=== PATIENT | female | born 1960 | race Caucasian/White ===

== ENCOUNTER 2017-02-19 22:47 | Inpatient (IN) | payer OTHER ==
[~2017-02-19] VITALS: Ht 167.6 cm; Wt 62.4 kg
[2017-02-20 01:50] VITALS: BP 142/71; PULSE 79; TEMP 36.9; O2SAT 98; Ht 167.6 cm; Wt 62.4 kg
--- NOTE | 2017-02-20 03:16 | History and Physical ---
History & Physical Date & Time of Service: Feb 20, 2017 at 03:02 Chief Complaint: Bilat 2,3,4 Toe Cellulitis, Gangrene, ?Osteomyelit Primary Care Physician: No Doctor, Assigned History of Present Illness Source: patient Patient transferred from [facility] with bilateral gangrenous toes. She states she went out in the cold last week and when she came in, she noticed some blisters. The blisters were initially painful, but less so after they burst. She subsequently noticed discoloration of the skin, and attempted to treat with hydrogen peroxide. She states that the nail of her right second toe became black and fell off. When the discoloration did not improve after 3 days, she decided to seek medical attention. She otherwise denies feet problem since her bilateral great toe amputation in 2013 due to osteomyelitis - exact cause difficult to ascertain given poor historian. She otherwise denies diabetes, neuropathy, claudication, heart racing/palpitations. She is a smoker of less than half a pack daily. She states she has heating in her home and that her boots are warm and her feet did not feel cold while outdoors. Past Medical/Surgical History Patient denies any chronic medical conditions. Past medical history: - Osteomyelitis Previous surgeries: - cholecystomy - bilateral toe amputations - tonsillectomy Family History Non contributory. Social History Lives in a trailer with a friend. Smoking Status: Current Every Day Smoker Smokeless Tobacco Use: No Alcohol Use: socially Drug Use: none Marital Status: single Housing status: lives with friends Immunizations History of Influenza Vaccine: No History of Tetanus Vaccine?: No History of Pneumococcal: No History of Hepatitis B Vaccine: No Multi-Drug Resistant Organisms History of MDRO: No Allergies Coded Allergies: No Known Allergies (Unverified , 02/20/17) Review of Systems Constitutional: No fever, No chills Eyes: No worsening of vision, No eye pain ENT: No hearing loss Respiratory: No cough, No wheezing, No shortness of breath Cardiovascular: No chest pain, No orthopnea, No edema, No claudication, No palpitations Abdomen: No pain, No nausea, No vomiting, No diarrhea, No constipation Musculoskeletal: No joint pain, No muscle pain, No swelling, No calf pain Genitourinary - Female: No dysuria, No urinary frequency, No urinary urgency, No hematuria Neurologic: + balance problems, No paralysis, No weakness, No numbness/tingling Integumentary: + new/changing skin lesions, + color change, No rash, No itch, No bleeding Allergic / Immunologic: No environmental allergies, No seasonal allergies, No pet sensitivities, No food allergies, No hives Physical Exam Vital Signs Date Time Temp Pulse Resp B/P (MAP) Pulse Ox O2 Delivery O2 Flow Rate FiO2 02/20/17 01:50 36.9 79 16 142/71 (94) 98 Room Air General Appearance: WD/WN, no apparent distress Head: normocephalic, atraumatic Eyes: normal inspection ENT: hearing grossly normal, pharynx normal, + pertinent finding (poor dentition) Neck: supple, no adenopathy Respiratory/Chest: lungs clear, normal breath sounds, no respiratory distress, no accessory muscle use Cardiovascular: regular rate, rhythm, no edema, no murmur, normal peripheral pulses (posterior tib and dorsalis pedis 2+) Abdomen/GI: normal bowel sounds, non tender, soft Extremities/Musculoskelatal: no calf tenderness, normal capillary refill, no pedal edema, + pertinent finding (absence of great toes bilaterally. right second digit has no toe nail.) Neurologic/Psych: no motor/sensory deficits, alert, normal mood/affect, oriented x 3 Skin: + pertinent finding (Toes discolored sepulveda and red. Toes mildly musky/ foul smelling) Lymphatic: no adenopathy Diagnostics Laboratory Results Labs from outside hospital reviewed. CBC, BMP, coags, trop all WNL. Diagnostic Radiology No imaging performed at outside lab. Impression Assessment and Plan 56 year old female with no other chronic medical issues transferred from [facility] with bilateral gangrenous toes. Bilateral gangrenous toes - Bilateral foot zrays to assess for osteomyelitis - U/S lower extremities bilaterally to assess vasculature - IV abx: vancomycin and zosyn to cover staph and pseudomonas - Foot care: Kerlix dressing and waffle boots - Consult orthopedics - Check HbA1c and vitamin B12 to assess for causes of neuropathy VTE ppx - Heparin q8h Dispo - Discharge planning ordered given patient seems to come from poor socioeconomic background FULL CODE Attending addendum: I have physically seen this patient, have supervised the medical residents activities, and agree with the H&P unless as otherwise noted. Assessment and Plan: Bilateral gangrenous toes/transfer from [facility] emergency department-- Order x-rays bilateral feet and toes as screening for osteomyelitis Bilateral lower extremity arterial Dopplers to assess for PAD Vancomycin IV and Zosyn IV Consult wound care Consult orthopedics Consult social services analyst to assess patient's current living situation Level of Care Med/Surg Advanced Directives Existing Advance Directive: No Existing Living Will: No Existing Power of Axle Inspector: No Existing Health Care Proxy: No Resuscitation Status FULL RESUSCITATION VTE Prophylaxis VTE Risk Assessment Done? Y/N: Yes Risk Level: Moderate Given or contraindicated: Unfractionated heparin SQ Social Service Consult Abuse/Neglect Concerns Note Total Time: Critical Care 30 - 74 minutes Resident Tracking Resident Involvement: Resident Care Provided Care Provided: Adult Hospital Medicine
[2017-02-20] MEDS ORDERED: VANCOMYCIN INJ 1,000 MG in SODIUM CHLORIDE 0.9% 250ML 250 ML IV STA (03:31)
[2017-02-20] MEDS ORDERED: POLYETHYLENE (MIRALAX) 17 GM PACK PO PRN (03:45)
[2017-02-20] MEDS ORDERED: ACETAMINOPHEN 325 MG TAB PO PRN (03:45)
[2017-02-20] MEDS ORDERED: ALUMINUM/MAGNESIUM/SIMETH (MAALOX MAX) 30 ML UDC PO PRN (03:45)
[2017-02-20] MEDS ORDERED: ONDANSETRON INJ 2 MG/ML 2 ML VIAL IV PRN (03:45)
[2017-02-20] MEDS ORDERED: MAGNESIUM HYDROXIDE SUSP 30 ML UDC PO PRN (03:45)
[2017-02-20] MEDS ORDERED: PIPERACILL/TAZOBAC IV 4.5 GM in DEXTROSE 5% 100ML 100 ML IV SCH (04:30)
[2017-02-20] MEDS ORDERED: VANCOMYCIN INJ 1,500 MG in SODIUM CHLORIDE 0.9% 500ML 500 ML IV SCH (04:30)
[2017-02-20] MEDS ORDERED: PIPERACILL/TAZOBAC CONSULT ACTIVE PRN (04:30)
[2017-02-20] MEDS ORDERED: VANCOMYCIN CONSULT ACTIVE PRN (04:30)
[2017-02-20 07:18] VITALS: BP 118/71; PULSE 81; TEMP 36.8; O2SAT 96
[2017-02-20 08:13] LABS: BASO % 0.2 %; BASO ABS # 0.02 K/uL (0-0.2); EOS % 1.4 %; EOS ABS # 0.12 K/uL (0-0.5); HEMOGLOBIN 10.5 g/dL (12.0-16.0); IG# 0.02 K/uL (0.00-0.02); LYMPH % 26.2 %; MEAN CELL VOLUME 90.1 fL (80-100); MEAN CORPUSCULAR HEMOGLOBIN 29.6 pg (25-34); MEAN CORPUSCULAR HGB CONC 32.8 g/dl (32-36); MEAN PLATELET VOLUME 9.6 fL (7.4-10.4); MONO % 6.6 %; MONO ABS # 0.58 K/uL (0.11-0.59); NEUT % 65.4 %; NEUT ABS # 5.75 K/uL (1.4-6.5); PLATELET COUNT 297 K/uL (130-400); RED CELL DISTRIBUTION WIDTH CV 12.7 % (11.5-14.5); RED CELL DISTRIBUTION WIDTH SD 41.8 fL (36.4-46.3); WHITE BLOOD COUNT 8.79 K/uL (4.8-10.8)
[2017-02-20 08:29] LABS: PTT PATIENT 26.4 SECONDS (21.0-31.0)
[2017-02-20 08:44] LABS: ALBUMIN 2.9 gm/dl (3.4-5.0); CALCIUM 9.1 mg/dl (8.5-10.1); CREATININE 0.4 mg/dl (0.60-1.20); POTASSIUM 3.6 mmol/L (3.5-5.1)
[2017-02-20 08:47] LABS: PHOSPHORUS 3.7 mg/dl (2.5-4.9)
--- NOTE | 2017-02-20 08:49 | DIAGNOSTIC IMAGING REPORT ---
L FOOT MIN 3 VIEWS ROUTINE CLINICAL HISTORY: gangrenous toes, asses for osteo COMPARISON: None. DISCUSSION: Generalized is moderate soft tissue edema. Prior resection of the phalanges of the great toe. Partial resection distal aspect second metatarsal. No bony destructive process. Moderate soft tissue edema IMPRESSION: Soft tissue edema and postoperative changes as described. No evidence for an acute bony abnormality. The above report was generated using voice recognition software. It may contain grammatical, syntax or spelling errors. Electronically signed by: Florin Sparks M.D. 02/20/2017 8:48 AM Dictated Date/Time: 02/20/2017 8:47 AM
--- NOTE | 2017-02-20 08:51 | DIAGNOSTIC IMAGING REPORT ---
R FOOT MIN 3 VIEWS ROUTINE CLINICAL HISTORY: gangrenous toes, asses for osteo osteomyelitis COMPARISON: None. DISCUSSION: Prior resection of the middle and distal phalanges phalanx of the second toe. Resection of the phalanges of the exception of the base of the proximal phalanx great toe. The margins are sclerotic and distally. There is evidence for moderate localized soft tissue edematous change. Well-defined osteomyelitis is not seen currently. Heel spur is present. IMPRESSION: Postoperative and soft tissue edematous guide changer the phalanges of the toes. No evidence for acute bony destructive process. The above report was generated using voice recognition software. It may contain grammatical, syntax or spelling errors. Electronically signed by: Florin Sparks M.D. 02/20/2017 8:50 AM Dictated Date/Time: 02/20/2017 8:48 AM
[2017-02-20 09:04] LABS: HEMOGLOBIN A1C 5.6 % (4.5-5.6)
--- NOTE | 2017-02-20 09:23 | ORTHOPEDIC CONSULTATION ---
DATE OF CONSULTATION: 02/20/2017 REASON FOR CONSULTATION: Special attention to bilateral toe gangrene. HISTORY OF PRESENT ILLNESS: This is a 56-year-old female who was admitted yesterday to the medical service with gangrene of the toes. She states the last week, she noted some blisters on her toes after she went out in the cold and subsequently noted discoloration to the skin. She placed some hydrogen peroxide on her toes. She notes discoloration did not improve. She denies any fever or chills. PAST SURGICAL HISTORY: Include bilateral great toe amputations by Dr. Infante reportedly for osteomyelitis. She denies any diabetes, history of neuropathy or history of circulatory problems. SOCIAL HISTORY: She states she smokes a few cigarettes a day. PHYSICAL EXAMINATION: EXTREMITIES: Left foot exam does show a varying degree of gangrene and ischemia to the toes. She can flex and extend the toes. I do not see gross evidence of infection and she has no streaking erythema. Her third toe does show necrosis. The reminder of the toe show a variable degree of ischemia, but no definite amaya necrosis. Previous amputation of the great toe noted. Right toe exam does show likewise no evidence of gross erythema, no purulent drainage. Second toe does show necrosis. ASSESSMENT: Bilateral toe gangrene. PLAN: At this point in time, etiology is not quite clear possibly could be multifactorial with some underlying peripheral vascular disease increased by the cold weather and mild frostbite. My recommendation would be for vascular workup to see if she has underlying circulatory dysfunction or vasculopathy. Buerger's disease would be a consideration and a differential diagnosis. At this point in time, I discussed amputation. At this point in time, she does not feel she is ready to have any toes amputated. We will continue to follow. At this point in time, may do dry sterile dressing changes once a day. Recommend further vascular studies. Three views of the left foot does not show gross evidence of osteomyelitis. There appears to be surgical loss of the second metatarsal head. Three views of the right foot likely shows loss of great toe surgically. No gross osteomyelitic lesions are seen. Second toe has loss of portion of the distal bony structure.
[2017-02-20] MEDS ORDERED: DAPTOMYCIN CONSULT ACTIVE PRN (10:00)
--- NOTE | 2017-02-20 10:14 | DIAGNOSTIC IMAGING REPORT ---
VENOUS DOPPLER LWR EXT BILA HISTORY: Ischemia. Pain. gangrenous toes COMPARISON STUDY: None. FINDINGS: There is normal compressibility, flow, and augmentation within the bilateral lower extremity deep venous systems. IMPRESSION: No DVT within the right or left lower extremity. The above report was generated using voice recognition software. It may contain grammatical, syntax or spelling errors. Electronically signed by: Florin Sparks M.D. 02/20/2017 10:12 AM Dictated Date/Time: 02/20/2017 10:12 AM
[2017-02-20] MEDS: PIPERACILL/TAZOBAC IV 3.375 GM in DEXTROSE 5% 100ML IV SCH ×2 (11:14→18:17)
[2017-02-20] MEDS: DAPTOMYCIN IV SCH (11:15)
[2017-02-20] MEDS: HEPARIN SOD 5000 UNIT/0.5 ML CARP SQ SCH ×2 (13:26→22:00)
--- NOTE | 2017-02-20 14:04 | Family Medicine Progress Note ---
Progress Note Date of Service Feb 20, 2017. Subjective Pt evaluation today including: conversation w/ patient, physical exam, chart review, lab review Voiding: no voiding problems Patient reports pain in her feet bilaterally with ambulation. Patient is a poor historian. Reports exposure to cold. Patient lives in a tailor with her father in law. Patient is windowed, unemployed. It is difficult to ascertain whether her feet is a result of poor living conditions and lack of heat. Patient is pleasant. Denies any other issues at this time. Constitutional: No fever, No chills Respiratory: No cough, No shortness of breath Cardiovascular: No chest pain, No palpitations Abdomen: No pain, No nausea, No vomiting Female : No dysuria, No urinary frequency Medications Current Inpatient Medications Medications (Trade) Dose Ordered Sig/Arin Route Start Time Stop Time Status Last Admin Dose Admin Heparin Sodium (Porcine) (Heparin Sq 5000 Unit/0.5ml) 5,000 unit Q8 SQ 02/20/17 14:00 03/22/17 13:59 Acetaminophen (Tylenol Tab) 650 mg Q4H PRN PO 02/20/17 03:45 03/22/17 03:44 Al Hydrox/Mg Hydrox/Simethicone (Maalox Max Susp) 15 ml Q4H PRN PO 02/20/17 03:45 03/22/17 03:44 Magnesium Hydroxide (Milk Of Magnesia Susp) 30 ml Q6H PRN PO 02/20/17 03:45 03/22/17 03:44 Polyethylene (Miralax Powder Packet) 17 gm DAILY PRN PO 02/20/17 03:45 03/22/17 03:44 Ondansetron HCl (Zofran Inj) 4 mg Q6H PRN IV 02/20/17 03:45 03/22/17 03:44 Piperacillin Sod/ Tazobactam Sod (Consult) 1 ea UD PRN N/A 02/20/17 04:30 03/22/17 04:29 Piperacillin Sod/ Tazobactam Sod 3.375 gm/Dextrose 115 ml @ 28.75 mls/ hr Q8H IV 02/20/17 10:00 03/02/17 09:59 02/20/17 11:14 28.75 MLS/HR Daptomycin 380 mg/ Syringe 7.6 ml @ 3.8 mls/min DAILY@1100 IV 02/20/17 11:00 03/02/17 10:59 02/20/17 11:15 3.8 MLS/MIN Daptomycin (Consult) 1 ea UD PRN N/A 02/20/17 10:00 03/22/17 09:59 Objective Vital Signs Last Vital Signs Documentation Date Time Temp Pulse Resp B/P (MAP) Pulse Ox O2 Delivery O2 Flow Rate FiO2 02/20/17 08:00 Room Air 02/20/17 07:18 36.8 81 17 118/71 (87) 96 Physical Exam General Appearance: WD/WN, no apparent distress Neck: supple, no adenopathy Respiratory/Chest: chest non-tender, lungs clear, normal breath sounds, no respiratory distress Cardiovascular: regular rate, rhythm, no edema, no gallop Extremities: normal range of motion, no calf tenderness Skin: normal color, warm/dry, no rash, + pertinent finding (clean dressing on bilateral feet and toes ) Laboratory Results 02/20/17 07:45 Red Blood Count 3.55, Mean Corpuscular Volume 90.1, Mean Corpuscular Hemoglobin 29.6, Mean Corpuscular Hemoglobin Concent 32.8, Mean Platelet Volume 9.6, Neutrophils (%) (Auto) 65.4, Lymphocytes (%) (Auto) 26.2, Monocytes (%) (Auto) 6.6, Eosinophils (%) (Auto) 1.4, Basophils (%) (Auto) 0.2, Neutrophils # (Auto) 5.75, Lymphocytes # (Auto) 2.30, Monocytes # (Auto) 0.58, Eosinophils # (Auto) 0.12, Basophils # (Auto) 0.02 02/20/17 07:45 Test 02/20/17 07:45 White Blood Count 8.79 K/uL (4.8-10.8) Red Blood Count 3.55 M/uL (4.2-5.4) Hemoglobin 10.5 g/dL (12.0-16.0) Hematocrit 32.0 % (37-47) Mean Corpuscular Volume 90.1 fL (80-100) Mean Corpuscular Hemoglobin 29.6 pg (25-34) Mean Corpuscular Hemoglobin Concent 32.8 g/dl (32-36) Platelet Count 297 K/uL (130-400) Mean Platelet Volume 9.6 fL (7.4-10.4) Neutrophils (%) (Auto) 65.4 % Lymphocytes (%) (Auto) 26.2 % Monocytes (%) (Auto) 6.6 % Eosinophils (%) (Auto) 1.4 % Basophils (%) (Auto) 0.2 % Neutrophils # (Auto) 5.75 K/uL (1.4-6.5) Lymphocytes # (Auto) 2.30 K/uL (1.2-3.4) Monocytes # (Auto) 0.58 K/uL (0.11-0.59) Eosinophils # (Auto) 0.12 K/uL (0-0.5) Basophils # (Auto) 0.02 K/uL (0-0.2) RDW Standard Deviation 41.8 fL (36.4-46.3) RDW Coefficient of Variation 12.7 % (11.5-14.5) Immature Granulocyte % (Auto) 0.2 % Immature Granulocyte # (Auto) 0.02 K/uL (0.00-0.02) Prothrombin Time 10.8 SECONDS (9.0-12.0) Prothromb Time International Ratio 1.0 (0.9-1.1) Activated Partial Thromboplast Time 26.4 SECONDS (21.0-31.0) Partial Thromboplastin Ratio 1.0 Anion Gap 7.0 mmol/L (3-11) Est Creatinine Clear Calc Drug Dose 145.2 ml/min Estimated GFR () 134.0 Estimated GFR (Non- 115.6 BUN/Creatinine Ratio 18.8 (10-20) Estimated Average Glucose 114 mg/dl Hemoglobin A1c 5.6 % (4.5-5.6) Calcium Level 9.1 mg/dl (8.5-10.1) Phosphorus Level 3.7 mg/dl (2.5-4.9) Magnesium Level 2.0 mg/dl (1.8-2.4) Total Bilirubin 0.4 mg/dl (0.2-1) Aspartate Amino Transf (AST/SGOT) 12 U/L (15-37) Alanine Aminotransferase (ALT/SGPT) 19 U/L (12-78) Alkaline Phosphatase 77 U/L (45-117) Total Protein 6.0 gm/dl (6.4-8.2) Albumin 2.9 gm/dl (3.4-5.0) Globulin 3.1 gm/dl (2.5-4.0) Albumin/Globulin Ratio 1.0 (0.9-2) Vitamin B12 Level 334 pg/mL (211-911) Hepatitis C Antibody Screen NEG (NEG) Assessment and Plan 56 year old female with no other chronic medical issues transferred from [facility] with bilateral gangrenous toes. Bilateral gangrenous toes - Bilateral xray of the feet do not show signs of osteomyelitis - U/S lower extremities bilaterally; no venous abnormalities - IV abx: vancomycin and zosyn to cover staph and pseudomonas - Foot care: Kerlix dressing and waffle boots - Ortho consulted; discussed possibility of amputation. Patient not amendable at this time. - HbA1c and B12 are within normal limits VTE ppx - Heparin q8h Dispo - Discharge planning ordered given patient seems to come from poor socioeconomic background - Pt appears to have poor medical care - Will access further potential causes Reviewed: Pt Seen/Exam by Me History denies any concerns. Constitutional: denies: fever Respiratory: negative: short of breath Cardiovascular: denies chest pain General Appearance: no apparent distress Respiratory: lungs clear, no respiratory distress Cardiovascular: regular rate, rhythm Extremities: other (both feet - s/p great toe amputee. other toes with dark discoloration, swelling) Neurologic/Psychiatric: alert, oriented x 3 Assessment/Plan Resident Physician Supervision Note: I independently interviewed and examined the patient and verified the gurrola history and physical, reviewed labs and image studies, discussed the case with the resident Dr. Johnson and agree with the findings and care plan.
[2017-02-20 15:39] VITALS: BP 114/69; PULSE 69; TEMP 36.7; O2SAT 98
[2017-02-20 23:55] VITALS: BP 123/72; PULSE 72; TEMP 36.6; O2SAT 97
[2017-02-21] MEDS: PIPERACILL/TAZOBAC IV 3.375 GM in DEXTROSE 5% 100ML IV SCH ×3 (02:08→17:32)
[2017-02-21] MEDS: HEPARIN SOD 5000 UNIT/0.5 ML CARP SQ SCH ×3 (05:43→21:28)
[2017-02-21 07:03] LABS: BASO % 0.2 %; BASO ABS # 0.02 K/uL (0-0.2); EOS % 2.1 %; EOS ABS # 0.18 K/uL (0-0.5); HEMATOCRIT 32.7 % (37-47); HEMOGLOBIN 10.5 g/dL (12.0-16.0); IG# 0.02 K/uL (0.00-0.02); LYMPH % 26.2 %; LYMPH ABS # 2.26 K/uL (1.2-3.4); MEAN CELL VOLUME 91.1 fL (80-100); MEAN CORPUSCULAR HEMOGLOBIN 29.2 pg (25-34); MEAN CORPUSCULAR HGB CONC 32.1 g/dl (32-36); MEAN PLATELET VOLUME 9.8 fL (7.4-10.4); MONO % 7.8 %; MONO ABS # 0.67 K/uL (0.11-0.59); NEUT % 63.5 %; NEUT ABS # 5.46 K/uL (1.4-6.5); PLATELET COUNT 304 K/uL (130-400); RED CELL DISTRIBUTION WIDTH CV 12.9 % (11.5-14.5); WHITE BLOOD COUNT 8.61 K/uL (4.8-10.8)
[2017-02-21 07:24] VITALS: BP 116/74; PULSE 66; TEMP 37.2; O2SAT 98
[2017-02-21 07:39] LABS: CALCIUM 8.9 mg/dl (8.5-10.1); CREATININE 0.6 mg/dl (0.60-1.20)
--- NOTE | 2017-02-21 08:29 | Progress Note ---
Progress Note Date of Service Feb 21, 2017. Progress Note ID Consult Dictated #[id number] A/P: 1. Gangrene toes -continue abx, follow culture -thank you
--- NOTE | 2017-02-21 08:30 | Orthopedic Progress Note ---
Orthopedic Progress Note Date of Service Feb 21, 2017. Subjective Reports: feeling well, pain controlled w PO medications, Denies: complaints, chest pain, SOB, nausea / vomiting, light headedness, calf pain Additional Notes: Patient notes a mild discomfort when walking due to dressings around her foot. Objective calves soft nontender, incision C/D/I, A&O x3, toes mobile Gangrenous toes bilaterally. Amputated Great toe bilaterally. Dressing change was performed today with adaptic, kerlix and tape. Date Time Temp Pulse Resp B/P (MAP) Pulse Ox O2 Delivery O2 Flow Rate FiO2 02/21/17 07:24 37.2 66 17 116/74 (88) 98 Room Air 02/20/17 23:55 36.6 72 14 123/72 (89) 97 Room Air 02/20/17 23:35 Room Air 02/20/17 15:50 Room Air 02/20/17 15:39 36.7 69 17 114/69 (84) 98 Room Air Laboratory Results 24 Hours: Test 02/21/17 06:30 White Blood Count 8.61 K/uL Red Blood Count 3.59 M/uL Hemoglobin 10.5 g/dL Hematocrit 32.7 % Mean Corpuscular Volume 91.1 fL Mean Corpuscular Hemoglobin 29.2 pg Mean Corpuscular Hemoglobin Concent 32.1 g/dl Platelet Count 304 K/uL Mean Platelet Volume 9.8 fL Neutrophils (%) (Auto) 63.5 % Lymphocytes (%) (Auto) 26.2 % Monocytes (%) (Auto) 7.8 % Eosinophils (%) (Auto) 2.1 % Basophils (%) (Auto) 0.2 % Neutrophils # (Auto) 5.46 K/uL Lymphocytes # (Auto) 2.26 K/uL Monocytes # (Auto) 0.67 K/uL Eosinophils # (Auto) 0.18 K/uL Basophils # (Auto) 0.02 K/uL Assessment & Plan Assessment: Bilateral gangrenous 2nd, 3rd, 4th and 5th toes. Plan: Daily dressing changes with adaptic and kerlix Appreciate Infectious disease input Medicine to order a IVETH, depending on the study, will consult vascular services for further evaluation. Discharge Planning Discharge Planning: uncertain
--- NOTE | 2017-02-21 09:59 | INFECT. DISEASE CONSULTATION ---
DATE OF CONSULTATION: 02/21/2017 HISTORY OF PRESENT ILLNESS: This is a 56-year-old female who was admitted to the hospital as a transfer from [place]. She apparently was out in the cold last week and she noticed blisters on her foot. This then progressed to a discoloration and gangrene of the toe. She did have an autoamputation of her right second toe at home. When this did not improve, she decided to go to [facility] and was subsequently transferred here. She does have a history of first toe amputation of both feet in 2013 due to osteomyelitis. It does not appear that she follows regularly. She does not have a history of any vascular disease; however, it does not appear that she has had workup for this. A vascular result is pending at this time. She is being followed by orthopedics and surgery is being postponed until additional vascular information can be obtained. She did have bilateral foot x-rays, which did not show any evidence of osteomyelitis. She currently denies any pain in the feet. She denies any fevers or chills. She denies any bleeding or purulent drainage. She was placed empirically on daptomycin and Zosyn and infectious diseases was consulted for daptomycin use. She has been afebrile and has had a normal white blood cell count. Blood cultures are pending. Her remaining review of systems is unremarkable. PAST MEDICAL AND SURGICAL HISTORY: Significant for osteomyelitis with amputation. She has also had cholecystectomy and tonsillectomy. FAMILY HISTORY: Noncontributory. SOCIAL HISTORY: Unremarkable. ALLERGIES: She has no known drug allergies. MEDICATIONS: Include subQ heparin, daptomycin, Zosyn, Tylenol, Maalox, milk of magnesia, MiraLax, and Zofran. PHYSICAL EXAMINATION: VITAL SIGNS: She is afebrile, pulse 66, respiratory rate is 17, blood pressure is 116/74 and oxygen saturation is 98% on room air. GENERAL: She is awake, alert and oriented. She is in no acute distress. HEENT: Mucous membranes are moist. Extraocular muscles are intact. Dentition is poor. HEART: Regular. LUNGS: Clear anteriorly. ABDOMEN: Nondistended. There is no edema. SKIN: Without rash. EXTREMITIES: Examination of the right foot reveals dried blood around the toes with some discoloration. There is no erythema, warmth or induration. There is no purulent drainage. LABORATORY STUDIES: CBC today reveals a white blood cell count of 8.6, hemoglobin 10.5, platelets 304. Chemistry panel is within normal limits. Creatinine is 0.6. Hep C antibody is negative. Blood cultures are pending. IMAGING: As above. ASSESSMENT AND PLAN: Gangrene suspected secondary to underlying vascular abnormality. A vascular evaluation is pending. She will continue on empiric antibiotics pending the results of blood cultures. Thank you for this consultation.
--- NOTE | 2017-02-21 10:30 | PROGRESS NOTE ---
DATE: 02/21/2017 SUBJECTIVE: Darleen was seen at the bedside today. She notes no new complaints. OBJECTIVE: Left toe examination does show a slight increase in gangrene. I do not see streaking erythema. Vascular status of the toes does look slightly worse. Right foot exam does show slight increase in gangrene as well. No evidence of a streaking erythema. ASSESSMENT: Gangrenous bilateral toes. PLAN: I discussed the findings with her. Ultrasound studies reviewed, which did not show evidence of acute DVT. Recommendation is for arterial duplex study to evaluate circulatory status and vascular consultation to see if there is any underlying cause for a gangrene. Of note, previous bilateral great toes were amputated with a pathologic diagnosis of osteomyelitis. This was done by Dr. Infante several years ago. We will continue to follow her. I did elementary school counselor her that she will likely need amputations of the toes at some point down the road when she is ready. She is understanding of these issues.
[2017-02-21] MEDS: DAPTOMYCIN IV SCH (11:02)
--- NOTE | 2017-02-21 13:37 | Family Medicine Progress Note ---
Progress Note Date of Service Feb 21, 2017. Subjective Pt evaluation today including: conversation w/ patient, physical exam, chart review, lab review, review of studies Pain: pain endorse bilateral pain of the feet with ambulation Voiding: no voiding problems Patient reports doing well. She understands the current treatment options discussed with her from orthopedics. Patient is otherwise doing well; sleeping well, tolerating a regular diet. Constitutional: No fever, No chills, No sweats Respiratory: No cough, No sputum, No shortness of breath Abdomen: No pain, No nausea, No vomiting, No diarrhea Female : No dysuria, No urinary frequency Medications Current Inpatient Medications Medications (Trade) Dose Ordered Sig/Arin Route Start Time Stop Time Status Last Admin Dose Admin Heparin Sodium (Porcine) (Heparin Sq 5000 Unit/0.5ml) 5,000 unit Q8 SQ 02/20/17 14:00 03/22/17 13:59 Acetaminophen (Tylenol Tab) 650 mg Q4H PRN PO 02/20/17 03:45 03/22/17 03:44 Al Hydrox/Mg Hydrox/Simethicone (Maalox Max Susp) 15 ml Q4H PRN PO 02/20/17 03:45 03/22/17 03:44 Magnesium Hydroxide (Milk Of Magnesia Susp) 30 ml Q6H PRN PO 02/20/17 03:45 03/22/17 03:44 Polyethylene (Miralax Powder Packet) 17 gm DAILY PRN PO 02/20/17 03:45 03/22/17 03:44 Ondansetron HCl (Zofran Inj) 4 mg Q6H PRN IV 02/20/17 03:45 03/22/17 03:44 Piperacillin Sod/ Tazobactam Sod (Consult) 1 ea UD PRN N/A 02/20/17 04:30 03/22/17 04:29 Piperacillin Sod/ Tazobactam Sod 3.375 gm/Dextrose 115 ml @ 28.75 mls/ hr Q8H IV 02/20/17 10:00 03/02/17 09:59 02/21/17 09:52 28.75 MLS/HR Daptomycin 380 mg/ Syringe 7.6 ml @ 3.8 mls/min DAILY@1100 IV 02/20/17 11:00 03/02/17 10:59 02/21/17 11:02 3.8 MLS/MIN Daptomycin (Consult) 1 ea UD PRN N/A 02/20/17 10:00 03/22/17 09:59 Objective Vital Signs Date Time Temp Pulse Resp B/P (MAP) Pulse Ox O2 Delivery O2 Flow Rate FiO2 02/21/17 07:24 37.2 66 17 116/74 (88) 98 Room Air 02/21/17 07:20 Room Air 02/20/17 23:55 36.6 72 14 123/72 (89) 97 Room Air 02/20/17 23:35 Room Air 02/20/17 15:50 Room Air 02/20/17 15:39 36.7 69 17 114/69 (84) 98 Room Air Physical Exam General Appearance: WD/WN, no apparent distress Respiratory/Chest: lungs clear, normal breath sounds Cardiovascular: regular rate, rhythm, no gallop, no murmur Extremities: non-tender, normal inspection, + pertinent finding (bilateral feet with clean dressings ) Neurologic/Psychiatric: alert, normal mood/affect, oriented x 3 Skin: normal color, warm/dry, no rash Laboratory Results 02/21/17 06:30 Red Blood Count 3.59, Mean Corpuscular Volume 91.1, Mean Corpuscular Hemoglobin 29.2, Mean Corpuscular Hemoglobin Concent 32.1, Mean Platelet Volume 9.8, Neutrophils (%) (Auto) 63.5, Lymphocytes (%) (Auto) 26.2, Monocytes (%) (Auto) 7.8, Eosinophils (%) (Auto) 2.1, Basophils (%) (Auto) 0.2, Neutrophils # (Auto) 5.46, Lymphocytes # (Auto) 2.26, Monocytes # (Auto) 0.67, Eosinophils # (Auto) 0.18, Basophils # (Auto) 0.02 02/21/17 06:30 Test 02/21/17 06:30 White Blood Count 8.61 K/uL (4.8-10.8) Red Blood Count 3.59 M/uL (4.2-5.4) Hemoglobin 10.5 g/dL (12.0-16.0) Hematocrit 32.7 % (37-47) Mean Corpuscular Volume 91.1 fL (80-100) Mean Corpuscular Hemoglobin 29.2 pg (25-34) Mean Corpuscular Hemoglobin Concent 32.1 g/dl (32-36) Platelet Count 304 K/uL (130-400) Mean Platelet Volume 9.8 fL (7.4-10.4) Neutrophils (%) (Auto) 63.5 % Lymphocytes (%) (Auto) 26.2 % Monocytes (%) (Auto) 7.8 % Eosinophils (%) (Auto) 2.1 % Basophils (%) (Auto) 0.2 % Neutrophils # (Auto) 5.46 K/uL (1.4-6.5) Lymphocytes # (Auto) 2.26 K/uL (1.2-3.4) Monocytes # (Auto) 0.67 K/uL (0.11-0.59) Eosinophils # (Auto) 0.18 K/uL (0-0.5) Basophils # (Auto) 0.02 K/uL (0-0.2) RDW Standard Deviation 43.0 fL (36.4-46.3) RDW Coefficient of Variation 12.9 % (11.5-14.5) Immature Granulocyte % (Auto) 0.2 % Immature Granulocyte # (Auto) 0.02 K/uL (0.00-0.02) Anion Gap 4.0 mmol/L (3-11) Est Creatinine Clear Calc Drug Dose 96.8 ml/min Estimated GFR () 117.3 Estimated GFR (Non- 101.2 BUN/Creatinine Ratio 15.3 (10-20) Calcium Level 8.9 mg/dl (8.5-10.1) Assessment and Plan 56 year old female with no other chronic medical issues transferred from [facility] with bilateral gangrenous toes. Bilateral gangrenous toes - ? sec to underlying vasculitis with piper bite, raynauds ds - Bilateral xray of the feet do not show signs of osteomyelitis - U/S lower extremities bilaterally; no venous abnormalities - IV abx: Vanc/Zosyn day 2 - Foot care: Kerlix dressing and waffle boots - Ortho consulted; discussed possibility of amputation. Patient not amenable at this time. - HbA1c and B12 are within normal limits Possible vascular disease -Determining if there is vascular components to wounds -Accessing with venous duplex, IVETH and vascular surgery consultation -Venous duplex negative for DVT VTE ppx - Heparin q8h Dispo - Discharge planning ordered given patient seems to come from poor socioeconomic background - Pt appears to have poor medical care Reviewed: Pt Seen/Exam by Me History no concerns Constitutional: denies: fever Respiratory: negative: short of breath Cardiovascular: denies chest pain General Appearance: no apparent distress Respiratory: lungs clear, no respiratory distress Cardiovascular: regular rate, rhythm Extremities: other (both feet with dressing ) Neurologic/Psychiatric: alert Assessment/Plan Resident Physician Supervision Note: I independently interviewed and examined the patient and verified the gurrola history and physical, reviewed labs and image studies, discussed the case with the resident Dr. Johnson and agree with the findings and care plan.
--- NOTE | 2017-02-21 13:45 | DIAGNOSTIC IMAGING REPORT ---
Bilateral ANKLE BRACHIAL INDEX LIMITED CLINICAL HISTORY: bilateral gangrenous toes COMPARISON STUDY: None. FINDINGS: The right ankle-brachial index was measured to be between 1.04 and 0.99. The left ankle-brachial index was measured between 1.04 and 0.87 IMPRESSION: Bilateral ankle brachial indices are within normal limits as described above. Electronically signed by: Jermaine Hoffman M.D. 02/21/2017 1:44 PM Dictated Date/Time: 02/21/2017 1:43 PM
[2017-02-21 15:23] VITALS: BP 110/67; PULSE 80; TEMP 36.7; O2SAT 97
[2017-02-21 23:25] VITALS: BP 123/76; PULSE 80; TEMP 36.7; O2SAT 99
[2017-02-22] MEDS: PIPERACILL/TAZOBAC IV 3.375 GM in DEXTROSE 5% 100ML IV SCH ×3 (02:23→17:47)
[2017-02-22] MEDS: HEPARIN SOD 5000 UNIT/0.5 ML CARP SQ SCH ×3 (05:34→21:22)
[2017-02-22 06:17] LABS: HEMATOCRIT 33.7 % (37-47); HEMOGLOBIN 10.8 g/dL (12.0-16.0); MEAN CELL VOLUME 91.6 fL (80-100); MEAN CORPUSCULAR HEMOGLOBIN 29.3 pg (25-34); MEAN PLATELET VOLUME 9.7 fL (7.4-10.4); PLATELET COUNT 316 K/uL (130-400); RED CELL DISTRIBUTION WIDTH CV 12.8 % (11.5-14.5); RED CELL DISTRIBUTION WIDTH SD 42.9 fL (36.4-46.3); WHITE BLOOD COUNT 9.45 K/uL (4.8-10.8)
[2017-02-22 06:50] LABS: CREATININE 0.62 mg/dl (0.60-1.20)
[2017-02-22 07:06] VITALS: BP 107/63; PULSE 66; TEMP 37.3; O2SAT 98
--- NOTE | 2017-02-22 09:49 | Surgery Consultation ---
Consultation Date of Service Feb 22, 2017. Chief Complaint Gangrene of toes bilaterally History of Present Illness The patient is a 56 year old female who was admitted with gangrene of the toes. Last week she noted blisters on her toes after she went out in the cold and subsequently noted discoloration to the skin. She treated them with peroxide but showed no improvement. She therefore came to the hospital. She denies any claudication, rest pain or lower extremity ulcerations. 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 She is a long time smoker. Vitals Vital Signs Past 12 Hours Date Time Temp Pulse Resp B/P (MAP) Pulse Ox O2 Delivery O2 Flow Rate FiO2 02/22/17 07:06 37.3 66 16 107/63 (78) 98 Room Air 02/22/17 02:16 Room Air 02/21/17 23:25 36.7 80 20 123/76 (92) 99 Room Air Allergies Coded Allergies: No Known Allergies (Unverified , 02/20/17) Problem List Medical Problems: (1) Gangrenous toe Surgical / Medical History Hx Cardiac Surgery: No Hx Abdominal Surgery: Yes (Removal of gallbladder and appendix) Hx Cancer Surgery: No Hx Thoracic Surgery: No Hx Orthopedic: No Hx Urinary Tract Surgery: No HX Other Surgery: Yes (Removal of tonsils; partial amputation of great toes) Past Medical/Surgical History: Other (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) Social History Smoking Status: Current Every Day Smoker Hx Tobacco Use In Past Year?: Yes Hx Alcohol Use - Type & Amnt: Yes ("sometimes") Hx Substance Use -Type & Amnt: No Review of Systems Respiratory: No cough, No cyanosis, No BRISENO, No hemoptysis, No orthopnea, No PND , No short of breath, No sputum production, No stridor, No wheezing, No dyspnea , No problem reported Cardiovascular: No chest pain, No chest tightness, No chest pressure, No palpitations, No syncope, No diaphoresis, No edema, No intermittent claudication , No orthopnea, No cyanosis, No mumur, No lightheadedness, No paroxysmal nocturnal dyspnea, No problem reported Gastrointestinal: No abdominal pain, No constipation, No diarrhea, No nausea, No vomiting, No anorexia, No appetite changes, No belching, No flatulence, No food intolerance, No hematemesis, No hemorrhoids, No hematochezia, No stool changes, No heartburn, No indigestion, No dysphagia, No rectal bleeding, No problem reported Musculoskeletal: No back pain, No gout, No joint pain, No joint swelling, No muscle pain, No muscle stiffness, No muscle weakness, No neck pain, No problem reported Physical Exam Constitutional: General Apperance: cachectic Level of Distress: NAD Ambulation: ambulating normally Psychiatric: Mental Status: active & alert, normal mood, normal affect Orientation: oriented except where noted, to time, to place, to person Memory: recent memory normal, remote memory normal Head: normocephalic Peripheral Pulses: Radial Pulse: normal on the left, normal on the right Femoral Pulse: normal on the left, normal on the right Posterior Tibialis Pulse: decreased on the left, decreased on the right Dorsalis Pedis Pulse: normal on the left, normal on the right Musculoskeletal: normal Extremities: Upper Right: no cyanosis, no edema, no varicosities, no palpable cord, no clubbing, no ulcers, no mottling Upper Left: no cyanosis, no edema, no palpable cord, no clubbing, no ulcers , no mottling Lower Right: gangrene (disoloration and ischemic chages of the toes) Lower Left: gangrene (discoloration and ischemic changes of the toes) Assessment and Plan Imp: Ischemic toes bilaterally. Plan: Patient with good pulsed in both feet and normal IVETH's. Will obtain duplex to concur there are no significant lower extremity arterial lesions present. Would not do anything endovascular at this time. Would proceed with amputations at this time if indicated. Thank you very much for letting me participate in the care of this patient.
--- NOTE | 2017-02-22 10:50 | Progress Note ---
Subjective Date of Service: Feb 22, 2017. Subjective Pt evaluation today including: conversation w/ patient, physical exam, chart review, lab review pt seen in followup, tolerating abx. denies pain, no n/v/d, eating well. blood cultures negative, IVETH nml. awaiting surgical plan. states she is ambulating in room without pain. no f/c. denies bleeding/drainage from foot. all remaining ros reviewed and are negative. Objective Vital Signs Date Time Temp Pulse Resp B/P (MAP) Pulse Ox O2 Delivery O2 Flow Rate FiO2 02/22/17 07:06 37.3 66 16 107/63 (78) 98 Room Air 02/22/17 02:16 Room Air 02/21/17 23:25 36.7 80 20 123/76 (92) 99 Room Air 02/21/17 15:50 Room Air 02/21/17 15:23 36.7 80 17 110/67 (81) 97 Room Air Physical Exam General Appearance: WD/WN, no apparent distress Eyes: normal inspection, EOMI Neck: supple Respiratory/Chest: lungs clear, normal breath sounds, no respiratory distress Cardiovascular: regular rate, rhythm, no edema Abdomen: soft Extremities: non-tender, no pedal edema Neurologic/Psychiatric: alert, oriented x 3 Skin: normal color Laboratory Results Item Value Date Time Blood Culture - Preliminary Resulted 02/20/17 1025 Blood NO GROWTH TO DATE. Blood Culture - Preliminary Resulted 02/20/17 1033 Blood NO GROWTH TO DATE. Last 24 Hours Test 02/22/17 05:54 White Blood Count 9.45 K/uL Red Blood Count 3.68 M/uL Hemoglobin 10.8 g/dL Hematocrit 33.7 % Mean Corpuscular Volume 91.6 fL Mean Corpuscular Hemoglobin 29.3 pg Mean Corpuscular Hemoglobin Concent 32.0 g/dl RDW Standard Deviation 42.9 fL RDW Coefficient of Variation 12.8 % Platelet Count 316 K/uL Mean Platelet Volume 9.7 fL Sodium Level 139 mmol/L Potassium Level 4.0 mmol/L Chloride Level 106 mmol/L Carbon Dioxide Level 26 mmol/L Anion Gap 7.0 mmol/L Blood Urea Nitrogen 15 mg/dl Creatinine 0.62 mg/dl Est Creatinine Clear Calc Drug Dose 93.7 ml/min Estimated GFR () 116.0 Estimated GFR (Non- 100.1 BUN/Creatinine Ratio 23.5 Random Glucose 99 mg/dl Calcium Level 9.0 mg/dl Assessment and Plan (1) Gangrenous toe Assessment & Plan: doubt infectious in nature, will follow cultures, if negative, will likely stop abx.
[2017-02-22] MEDS: DAPTOMYCIN IV SCH (12:10)
--- NOTE | 2017-02-22 14:58 | Family Medicine Progress Note ---
Progress Note Date of Service Feb 22, 2017. Subjective Pt evaluation today including: conversation w/ patient, physical exam, chart review, lab review Pain: no discomfort this AM PO Intake: tolerating Voiding: no voiding problems This AM pt denies any discomfort including pain in bilateral feet. Constitutional: No fever, No chills Respiratory: No shortness of breath Cardiovascular: No chest pain Abdomen: No pain, No nausea, No vomiting Female : No dysuria Medications Current Inpatient Medications Medications (Trade) Dose Ordered Sig/Arin Route Start Time Stop Time Status Last Admin Dose Admin Heparin Sodium (Porcine) (Heparin Sq 5000 Unit/0.5ml) 5,000 unit Q8 SQ 02/20/17 14:00 03/22/17 13:59 Acetaminophen (Tylenol Tab) 650 mg Q4H PRN PO 02/20/17 03:45 03/22/17 03:44 Al Hydrox/Mg Hydrox/Simethicone (Maalox Max Susp) 15 ml Q4H PRN PO 02/20/17 03:45 03/22/17 03:44 Magnesium Hydroxide (Milk Of Magnesia Susp) 30 ml Q6H PRN PO 02/20/17 03:45 03/22/17 03:44 Polyethylene (Miralax Powder Packet) 17 gm DAILY PRN PO 02/20/17 03:45 03/22/17 03:44 Ondansetron HCl (Zofran Inj) 4 mg Q6H PRN IV 02/20/17 03:45 03/22/17 03:44 Piperacillin Sod/ Tazobactam Sod (Consult) 1 ea UD PRN N/A 02/20/17 04:30 03/22/17 04:29 Piperacillin Sod/ Tazobactam Sod 3.375 gm/Dextrose 115 ml @ 28.75 mls/ hr Q8H IV 02/20/17 10:00 03/02/17 09:59 02/22/17 10:13 28.75 MLS/HR Daptomycin 380 mg/ Syringe 7.6 ml @ 3.8 mls/min DAILY@1100 IV 02/20/17 11:00 03/02/17 10:59 02/22/17 12:10 3.8 MLS/MIN Daptomycin (Consult) 1 ea UD PRN N/A 02/20/17 10:00 03/22/17 09:59 Objective Vital Signs Date Time Temp Pulse Resp B/P (MAP) Pulse Ox O2 Delivery O2 Flow Rate FiO2 02/22/17 08:05 Room Air 02/22/17 07:06 37.3 66 16 107/63 (78) 98 Room Air 02/22/17 02:16 Room Air 02/21/17 23:25 36.7 80 20 123/76 (92) 99 Room Air 02/21/17 15:50 Room Air 02/21/17 15:23 36.7 80 17 110/67 (81) 97 Room Air Physical Exam General Appearance: no apparent distress Eyes: normal inspection, sclerae normal Neck: supple Respiratory/Chest: lungs clear, normal breath sounds Cardiovascular: regular rate, rhythm, no murmur Abdomen: normal bowel sounds, non tender, soft Extremities: + pertinent finding (kelix dressing clean, dry and intact to bilateral feet) Neurologic/Psychiatric: alert, oriented x 3 Laboratory Results 02/22/17 05:54 02/22/17 05:54 Test 02/22/17 05:54 Red Blood Count 3.68 M/uL (4.2-5.4) Mean Corpuscular Volume 91.6 fL (80-100) Mean Corpuscular Hemoglobin 29.3 pg (25-34) Mean Corpuscular Hemoglobin Concent 32.0 g/dl (32-36) RDW Standard Deviation 42.9 fL (36.4-46.3) RDW Coefficient of Variation 12.8 % (11.5-14.5) Mean Platelet Volume 9.7 fL (7.4-10.4) Anion Gap 7.0 mmol/L (3-11) Est Creatinine Clear Calc Drug Dose 93.7 ml/min Estimated GFR () 116.0 Estimated GFR (Non- 100.1 BUN/Creatinine Ratio 23.5 (10-20) Calcium Level 9.0 mg/dl (8.5-10.1) Assessment and Plan 56 year old female with no other chronic medical issues was transferred from [facility] with bilateral ischemic toes. Bilateral gangrenous/ischemic toes 2/2 to possible vasculitis worsened by cold weather/piper bite vs. Raynaud's disease - Bilateral xray of the feet - soft tissue edema and postop changes, no osteomyelitis - U/S lower extremities bilaterally; no venous abnormalities - HbA1c and B12 are within normal limits - Vascular surgery consult: - good pulses both feet, normal IVETH - US duplex to confirm no significant LE arterial lesions - Ortho consulted - discussed possibility of amputation. Patient not amenable at this time. - IV abx: Vanc/Zosyn day 2 - Per ID follow cultures and if neg stop abx unlikely to be infectious in nature - Foot care: Kerlix dressing and waffle boots VTE ppx - Heparin q8h Dispo - pt prefers to go home; minimal steps at home and uses cane/walker Resident Involvement: Resident Care Provided Care Provided: Adult [facility] Medicine Reviewed: Pt Seen/Exam by Me History Pt feels her feet are getting better color. Pain is improved also. Nursing was in this AM and changed bandages. Pt is tolerating PO without issue. No chest pain or SOB. Agree with HPI/ROS as noted by resident General Appearance: WD/WN, no apparent distress Respiratory: normal breath sounds, no respiratory distress Cardiovascular: normal peripheral pulses, regular rate, rhythm Gastrointestinal: non tender, soft Extremities: no pedal edema, no calf tenderness Neurologic/Psychiatric: alert, oriented x 3 Skin Characteristics: warm/dry, other (bandages in place are clean and dry) Assessment/Plan Agree with plan as outlined above Gangrenous b/l 2-5 toes Ortho following and attempting conservative management with abx, however still may possibly need OR Concern for vascular compromise given prior hx of b/l great toe amputation, ABIs WNL Vasc awaiting doppler studies
--- NOTE | 2017-02-22 14:59 | DIAGNOSTIC IMAGING REPORT ---
ART DOP LOWER EXT BILAT HISTORY: 56 years-old Female gangrene of toes COMPARISON: Ankle brachial index 02/21/2017 TECHNIQUE: Multiple real-time sonographic images of the bilateral lower extremity arterial structures were obtained assessing grayscale appearance, color and spectral flow FINDINGS: RIGHT: Triphasic waveforms are noted within the common femoral, profunda femoris, superficial femoral, popliteal, posterior tibial, anterior tibial and dorsalis pedis arteries. There is biphasic and triphasic flow noted within the peroneal, and portions of the dorsalis [place]mlin artery. Mild atherosclerotic plaquing noted. LEFT: Triphasic waveforms are noted within the common femoral, profunda femoris, superficial femoral, popliteal, posterior tibial, anterior tibial, peroneal and dorsalis pedis arteries. Mild atherosclerotic plaquing. IMPRESSION: 1. No high-grade stenosis or occlusion identified. 2. There is a biphasic flow noted within the distal right lower extremity as above. The above report was generated using voice recognition software. It may contain grammatical, syntax or spelling errors. Electronically signed by: Garret Alvarado M.D. 02/22/2017 2:58 PM Dictated Date/Time: 02/22/2017 2:53 PM
[2017-02-22 15:11] VITALS: BP 112/72; PULSE 74; TEMP 37; O2SAT 100
--- NOTE | 2017-02-22 15:30 | Progress Note ---
Orthopedic SOAP Note Subjective Date of Service: Feb 22, 2017. Objective Date Time Temp Pulse Resp B/P (MAP) Pulse Ox O2 Delivery O2 Flow Rate FiO2 02/22/17 15:11 37.0 74 17 112/72 (85) 100 Room Air 02/22/17 08:05 Room Air 02/22/17 07:06 37.3 66 16 107/63 (78) 98 Room Air 02/22/17 02:16 Room Air 02/21/17 23:25 36.7 80 20 123/76 (92) 99 Room Air 02/21/17 15:50 Room Air Laboratory Results 24 Hours: Test 02/22/17 05:54 Hematocrit 33.7 % Hemoglobin 10.8 g/dL Assessment Bilateral gangrenous 2nd, 3rd, 4th and 5th toes. Plan Daily dressing changes with adaptic and kerlix Appreciate Infectious disease input,doubt infection as well Medicine to order a IVETH, and vascular surgery on case,may need bilateral partial amputations.will notify Dr Infante of patient condition.
--- NOTE | 2017-02-22 16:05 | ORTHOPEDIC PROGRESS NOTE ---
DATE: 02/22/2017 SUBJECTIVE: The patient is a 56-year-old white female who was seen by Dr. Ascencio over the weekend for ischemic toes on both feet. The patient states that she had been out in the cold weather and had developed some blisters on her toes and they continued to worsen over time. At this point in time, Dr. Ascencio has been following and watching for signs of improvement with the toes with the plans to have Dr. Infante see the patient as well. Plans were also to have ABIs and duplex study done and have the patient seen by vascular service. OBJECTIVE: On unwrapping the patient's both feet, she feels that they look somewhat improved over the last several days. She has had some more work done already noted with amputations of her great toes to a certain extent and on the left toe, she has some noted ischemia of the 2nd, 3rd and 4th toes with a blackened area over the third toe, somewhat also on the second toe as well on the dorsum. The right foot shows previous great toe amputation with also some work done on the second toe, which is dark red at this time. The 3rd and 4th toes have some necrosis noted at the bases. It is noted that both feet are warm to the touch. She does have pulses of the dorsalis pedis at this time on both feet. PLAN: The patient was seen by Dr. Higuera earlier in the day and after reviewing the ABIs, a duplex was also ordered and it was felt that there was nothing that needed to be done at this time due to the results of these tests and plans will be to proceed with amputations if indicated. We will discuss the case further with Dr. Infante and we will continue to follow this patient.
[2017-02-22 23:04] VITALS: BP 119/72; PULSE 73; TEMP 36.6; O2SAT 100
[2017-02-23] MEDS: PIPERACILL/TAZOBAC IV 3.375 GM in DEXTROSE 5% 100ML IV SCH ×2 (01:45→09:56)
[2017-02-23] MEDS: HEPARIN SOD 5000 UNIT/0.5 ML CARP SQ SCH ×3 (05:47→22:00)
[2017-02-23 06:53] VITALS: BP 120/66; PULSE 71; TEMP 37.1; O2SAT 99
[2017-02-23 07:43] LABS: HEMATOCRIT 34.4 % (37-47); HEMOGLOBIN 11.2 g/dL (12.0-16.0); MEAN CELL VOLUME 91.5 fL (80-100); MEAN CORPUSCULAR HEMOGLOBIN 29.8 pg (25-34); MEAN CORPUSCULAR HGB CONC 32.6 g/dl (32-36); MEAN PLATELET VOLUME 9.9 fL (7.4-10.4); PLATELET COUNT 354 K/uL (130-400); RED CELL DISTRIBUTION WIDTH SD 43.3 fL (36.4-46.3); WHITE BLOOD COUNT 9.22 K/uL (4.8-10.8)
[2017-02-23 08:14] LABS: CALCIUM 9.4 mg/dl (8.5-10.1); CREATININE 0.64 mg/dl (0.60-1.20); POTASSIUM 4.1 mmol/L (3.5-5.1)
--- NOTE | 2017-02-23 10:50 | Family Medicine Progress Note ---
Progress Note Date of Service Feb 23, 2017. Subjective Pt evaluation today including: conversation w/ patient, physical exam, chart review, lab review Pain: denies any discomfort this AM PO Intake: tolerating Voiding: no voiding problems This AM denies any foot pain or discomfort. Otherwise asymptomatic Constitutional: No fever, No chills Respiratory: No shortness of breath Cardiovascular: No chest pain Abdomen: No pain, No nausea, No vomiting Female : No dysuria All Other Systems: Reviewed and Negative Medications Current Inpatient Medications Medications (Trade) Dose Ordered Sig/Arin Route Start Time Stop Time Status Last Admin Dose Admin Heparin Sodium (Porcine) (Heparin Sq 5000 Unit/0.5ml) 5,000 unit Q8 SQ 02/20/17 14:00 03/22/17 13:59 Acetaminophen (Tylenol Tab) 650 mg Q4H PRN PO 02/20/17 03:45 03/22/17 03:44 Al Hydrox/Mg Hydrox/Simethicone (Maalox Max Susp) 15 ml Q4H PRN PO 02/20/17 03:45 03/22/17 03:44 Magnesium Hydroxide (Milk Of Magnesia Susp) 30 ml Q6H PRN PO 02/20/17 03:45 03/22/17 03:44 Polyethylene (Miralax Powder Packet) 17 gm DAILY PRN PO 02/20/17 03:45 03/22/17 03:44 Ondansetron HCl (Zofran Inj) 4 mg Q6H PRN IV 02/20/17 03:45 03/22/17 03:44 Piperacillin Sod/ Tazobactam Sod (Consult) 1 ea UD PRN N/A 02/20/17 04:30 03/22/17 04:29 Piperacillin Sod/ Tazobactam Sod 3.375 gm/Dextrose 115 ml @ 28.75 mls/ hr Q8H IV 02/20/17 10:00 03/02/17 09:59 02/23/17 09:56 28.75 MLS/HR Daptomycin 380 mg/ Syringe 7.6 ml @ 3.8 mls/min DAILY@1100 IV 02/20/17 11:00 03/02/17 10:59 02/22/17 12:10 3.8 MLS/MIN Daptomycin (Consult) 1 ea UD PRN N/A 02/20/17 10:00 03/22/17 09:59 Objective Vital Signs Date Time Temp Pulse Resp B/P (MAP) Pulse Ox O2 Delivery O2 Flow Rate FiO2 02/23/17 08:03 Room Air 02/23/17 06:53 37.1 71 18 120/66 (84) 99 Room Air 02/22/17 23:04 36.6 73 18 119/72 (88) 100 Room Air 02/22/17 20:00 Room Air 02/22/17 15:11 37.0 74 17 112/72 (85) 100 Room Air Physical Exam General Appearance: no apparent distress Eyes: normal inspection, sclerae normal ENT: + pertinent finding (poor dentition) Respiratory/Chest: lungs clear, normal breath sounds Cardiovascular: regular rate, rhythm, no murmur Abdomen: normal bowel sounds, non tender, soft Extremities: + pertinent finding (bilateral toes 2-5 - ulcerated with erythema/ edema and eschar; missing L great toe and R 1st and 2nd digit distal phalanx; intact sensation to dorsal feet) Neurologic/Psychiatric: alert, oriented x 3 Laboratory Results 02/23/17 06:47 02/23/17 06:47 Test 02/23/17 06:47 Red Blood Count 3.76 M/uL (4.2-5.4) Mean Corpuscular Volume 91.5 fL (80-100) Mean Corpuscular Hemoglobin 29.8 pg (25-34) Mean Corpuscular Hemoglobin Concent 32.6 g/dl (32-36) RDW Standard Deviation 43.3 fL (36.4-46.3) RDW Coefficient of Variation 13.0 % (11.5-14.5) Mean Platelet Volume 9.9 fL (7.4-10.4) Anion Gap 8.0 mmol/L (3-11) Est Creatinine Clear Calc Drug Dose 90.7 ml/min Estimated GFR () 114.8 Estimated GFR (Non- 99.1 BUN/Creatinine Ratio 25.3 (10-20) Calcium Level 9.4 mg/dl (8.5-10.1) Assessment and Plan 56 year old female with no other chronic medical issues was transferred from [facility] with bilateral ischemic toes. Bilateral gangrenous/ischemic toes 2/2 to cold weather/piper bite vs. Raynaud's disease vs. vascular insufficiency - Bilateral xray of the feet - soft tissue edema and postop changes, no osteomyelitis - U/S lower extremities bilaterally; no venous abnormalities - HbA1c and B12 are within normal limits - Vascular surgery consult: - good pulses both feet, normal IVETH - US duplex no high grade stenosis/occlusion - nothing to do from vasc standpoint - Ortho consulted - discussed possibility of amputation. Patient not amenable at this time. - awaiting Dr. Infante's decision on possible amputation - IV abx: Vanc/Zosyn day 3 - Per ID follow cultures and if neg stop abx unlikely to be infectious in nature - Foot care: Kerlix dressing and waffle boots VTE ppx - Heparin q8h Dispo - pt prefers to go home; minimal steps at home and uses cane/walker Resident Involvement: Resident Care Provided Care Provided: Adult [facility] Medicine Reviewed: Pt Seen/Exam by Me History Pt has no pain in her feet today. She has been out of bed to the bathroom and the chair and feels she is doing better. Pt states that she always gets blisters on her feet and occasionally her hands in the winter. Sometimes they are an issue and other times they heal on their own. She states she has to be careful going outside into the cold due to getting very cold very fast and having a hard time warming. She says that her toes have turned white in the winter before for long periods. She states that she has always had red marquis on her fingernails and toenails. No new issues today. Pt is tolerating PO without issue. No chest pain or SOB. Agree with HPI/ROS as noted by resident General Appearance: WD/WN, no apparent distress Respiratory: normal breath sounds, no respiratory distress Cardiovascular: normal peripheral pulses, regular rate, rhythm Gastrointestinal: non tender, soft Extremities: no pedal edema, other (fingernails with markings c/w splinter hemhorrage) Neurologic/Psychiatric: alert, oriented x 3 Skin Characteristics: warm/dry, other (bandages are clean and dry) Assessment/Plan Agree with plan as outlined above Gangrenous b/l 2-5 toes Ortho following and attempting conservative management with abx, however still may possibly need OR IVETH and dopplers neg Concern given more hx and exam findings that this is related to Raynaud's Resident spoke with Rheum who feels that if there is no infection or osteo, to monitor for autoamputation vs OR Ca channel tatum and rheum f/u as outpt, labs sent for JOANA and cryoglobulin ID feels no further need for abx
[2017-02-23] MEDS: DAPTOMYCIN IV SCH (10:58)
--- NOTE | 2017-02-23 14:04 | Progress Note ---
Subjective Date of Service: Feb 23, 2017. Subjective Pt evaluation today including: conversation w/ patient, physical exam, chart review, lab review pt oob to chair, doing well. no f/c. all cultures remain negative. remains afebrile. vascular eval negative. surgical plan pending. she denies pain, ambulating in room without difficulty. no n/v/d/abd pain. all remaining ros reviewed and are negative. Objective Vital Signs Date Time Temp Pulse Resp B/P (MAP) Pulse Ox O2 Delivery O2 Flow Rate FiO2 02/23/17 08:03 Room Air 02/23/17 06:53 37.1 71 18 120/66 (84) 99 Room Air 02/22/17 23:04 36.6 73 18 119/72 (88) 100 Room Air 02/22/17 20:00 Room Air 02/22/17 15:11 37.0 74 17 112/72 (85) 100 Room Air Physical Exam General Appearance: WD/WN, no apparent distress Eyes: normal inspection, EOMI Neck: supple Respiratory/Chest: lungs clear, normal breath sounds, no respiratory distress Cardiovascular: regular rate, rhythm, no edema Abdomen: non tender, soft Extremities: non-tender, no pedal edema Neurologic/Psychiatric: alert, oriented x 3 Skin: normal color Comments: dressing c/d/i Laboratory Results Item Value Date Time Blood Culture - Preliminary Resulted 02/20/17 1033 Blood NO GROWTH TO DATE. Blood Culture - Preliminary Resulted 02/20/17 1025 Blood NO GROWTH TO DATE. Last 24 Hours Test 02/23/17 06:47 02/23/17 12:35 02/23/17 13:27 White Blood Count 9.22 K/uL Red Blood Count 3.76 M/uL Hemoglobin 11.2 g/dL Hematocrit 34.4 % Mean Corpuscular Volume 91.5 fL Mean Corpuscular Hemoglobin 29.8 pg Mean Corpuscular Hemoglobin Concent 32.6 g/dl RDW Standard Deviation 43.3 fL RDW Coefficient of Variation 13.0 % Platelet Count 354 K/uL Mean Platelet Volume 9.9 fL Sodium Level 139 mmol/L Potassium Level 4.1 mmol/L Chloride Level 105 mmol/L Carbon Dioxide Level 26 mmol/L Anion Gap 8.0 mmol/L Blood Urea Nitrogen 16 mg/dl Creatinine 0.64 mg/dl Est Creatinine Clear Calc Drug Dose 90.7 ml/min Estimated GFR () 114.8 Estimated GFR (Non- 99.1 BUN/Creatinine Ratio 25.3 Random Glucose 90 mg/dl Calcium Level 9.4 mg/dl Assessment and Plan (1) Gangrenous toe Assessment & Plan: cultures negative, afebrile, no leukocytosis, will stop abx. no new ID recs.
[2017-02-23 15:02] VITALS: BP 122/52; PULSE 78; TEMP 35.8; O2SAT 100
--- NOTE | 2017-02-23 15:02 | Progress Note ---
Progress Note Date of Service Feb 23, 2017. Progress Note Pt is a 56 yo female who is scheduled for debridement of Left 2nd, 3rd and 4th toes tomorrow. 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 Pt is a current smoker but denies other medical history. Anesthesia plan discussed with patient; all questions answered and consent was obtained. Pt was advised to be NPO after midnight except for no more than 15ml of water with meds in the morning.
[2017-02-23 22:51] VITALS: BP 120/69; PULSE 73; TEMP 36.6; O2SAT 98
[2017-02-24] VITALS (9 sets, daily range): BP systolic 102–142; BP diastolic 65–80; PULSE 69–86; TEMP 36.4–37.5; O2SAT 97–100
[2017-02-24] MEDS: HEPARIN SOD 5000 UNIT/0.5 ML CARP SQ SCH ×3 (05:36→21:22)
[2017-02-24 07:47] LABS: HEMATOCRIT 35.3 % (37-47); HEMOGLOBIN 11.6 g/dL (12.0-16.0); MEAN CELL VOLUME 91.5 fL (80-100); MEAN CORPUSCULAR HEMOGLOBIN 30.1 pg (25-34); MEAN CORPUSCULAR HGB CONC 32.9 g/dl (32-36); MEAN PLATELET VOLUME 9.7 fL (7.4-10.4); PLATELET COUNT 355 K/uL (130-400); RED CELL DISTRIBUTION WIDTH CV 13.1 % (11.5-14.5); RED CELL DISTRIBUTION WIDTH SD 43.5 fL (36.4-46.3); WHITE BLOOD COUNT 10.55 K/uL (4.8-10.8)
[2017-02-24 08:20] LABS: CALCIUM 9.6 mg/dl (8.5-10.1); CREATININE 0.57 mg/dl (0.60-1.20); POTASSIUM 4.4 mmol/L (3.5-5.1)
[2017-02-24] MEDS ORDERED: AMLODIPINE BESYLATE 5 MG TAB PO ONE (12:00)
[2017-02-24] MEDS ORDERED: FENTANYL CITRATE INJ 50 MCG/1 ML 2 ML VIAL ONE ×2 (13:46→17:35)
[2017-02-24] MEDS ORDERED: LIDOCAINE HCL 2% 2 ML VIAL (20MG/ML) ONE ×3 (13:46→17:35)
[2017-02-24] MEDS ORDERED: MIDAZOLAM HCL 1 MG/ML 2ML VIAL ONE ×2 (13:46→17:35)
[2017-02-24] MEDS ORDERED: PROPOFOL IV EMULSION 10 MG/ML 20 ML VIAL IV ONE ×3 (13:46→17:35)
--- NOTE | 2017-02-24 15:53 | History & Physical Bridge Note ---
H&P Re-Evaluation Bridge Note: I have examined the patient, reviewed the History & Physical and in the interval since the performance of the History & Physical I have noted the following changes of clinical significance: Will take to OR today for debridement 2/3/4 toes bilateral feet.
[2017-02-24] MEDS ORDERED: EpHEDrine SULFATE INJ 50 MG/ML AMP IV PRN (16:15)
[2017-02-24] MEDS ORDERED: HYDROmorphone INJ 1 MG/ML SYR IV PRN (16:15)
[2017-02-24] MEDS ORDERED: FENTANYL CITRATE INJ 50 MCG/1 ML 2 ML VIAL IV PRN (16:15)
[2017-02-24] MEDS ORDERED: PROMETHAZINE HCL INJ 12.5 MG in SODIUM CHLORIDE 0.9% 50ML 50 ML IV PRN (16:15)
[2017-02-24] MEDS ORDERED: ATROPINE SULFATE 0.1 MG/ML 5ML SYR IV PRN (16:15)
[2017-02-24] MEDS ORDERED: ONDANSETRON INJ 2 MG/ML 2 ML VIAL IV PRN (16:15)
--- NOTE | 2017-02-24 16:47 | Family Medicine Progress Note ---
Progress Note Date of Service Feb 24, 2017. Subjective Pt evaluation today including: conversation w/ patient, physical exam Pain: denies any pain PO Intake: tolerating Voiding: no voiding problems This AM pt denies any discomfort or symptoms including pain in feet/toes Constitutional: No fever, No chills Respiratory: No shortness of breath Cardiovascular: No chest pain Abdomen: No pain, No nausea, No vomiting Female : No dysuria Medications Current Inpatient Medications Medications (Trade) Dose Ordered Sig/Arin Route Start Time Stop Time Status Last Admin Dose Admin Heparin Sodium (Porcine) (Heparin Sq 5000 Unit/0.5ml) 5,000 unit Q8 SQ 02/20/17 14:00 03/22/17 13:59 Acetaminophen (Tylenol Tab) 650 mg Q4H PRN PO 02/20/17 03:45 03/22/17 03:44 Al Hydrox/Mg Hydrox/Simethicone (Maalox Max Susp) 15 ml Q4H PRN PO 02/20/17 03:45 03/22/17 03:44 Magnesium Hydroxide (Milk Of Magnesia Susp) 30 ml Q6H PRN PO 02/20/17 03:45 03/22/17 03:44 Polyethylene (Miralax Powder Packet) 17 gm DAILY PRN PO 02/20/17 03:45 03/22/17 03:44 Ondansetron HCl (Zofran Inj) 4 mg Q6H PRN IV 02/20/17 03:45 03/22/17 03:44 Amlodipine Besylate (Norvasc Tab) 2.5 mg QAM PO 02/25/17 09:00 03/27/17 08:59 Fentanyl Citrate (Fentanyl Inj) 25 mcg Q5M PRN IV 02/24/17 16:15 02/24/17 21:15 Hydromorphone HCl (Dilaudid Inj) 0.5 mg Q5M PRN IV 02/24/17 16:15 02/24/17 21:15 Ondansetron HCl (Zofran Inj) 4 mg ONE PRN IV 02/24/17 16:15 02/24/17 21:15 Promethazine HCl 12.5 mg/Sodium Chloride 50.5 ml @ 202 mls/hr ONE PRN IV 02/24/17 16:15 02/24/17 21:15 Ephedrine Sulfate (EpHEDrine SULFATE INJ) 5 mg Q5M PRN IV 02/24/17 16:15 02/24/17 21:15 Atropine Sulfate (Atropine Sulfate 0.1mg/ml Inj) 0.5 mg Q1M PRN IV 02/24/17 16:15 02/24/17 21:15 Objective Vital Signs Date Time Temp Pulse Resp B/P (MAP) Pulse Ox O2 Delivery O2 Flow Rate FiO2 02/24/17 15:30 36.9 16 122/79 (93) 100 Room Air 02/24/17 15:25 36.5 76 18 117/79 (92) 100 Room Air 02/24/17 11:42 36.4 69 18 102/65 (77) 97 Room Air 02/24/17 08:42 99 Room Air 02/24/17 07:50 Room Air 02/24/17 07:47 37.3 70 20 108/72 (84) 99 Room Air 02/23/17 23:40 Room Air 02/23/17 22:51 36.6 73 16 120/69 (86) 98 Room Air Physical Exam General Appearance: no apparent distress Eyes: normal inspection, sclerae normal ENT: + pertinent finding (poor dentition) Respiratory/Chest: lungs clear, normal breath sounds Cardiovascular: regular rate, rhythm, no murmur Abdomen: normal bowel sounds, non tender, soft Extremities: + pertinent finding (bilateral toes/feet covered with clean and dry kerlix dressing) Neurologic/Psychiatric: alert Laboratory Results 02/24/17 07:26 02/24/17 07:26 Test 02/24/17 07:26 Red Blood Count 3.86 M/uL (4.2-5.4) Mean Corpuscular Volume 91.5 fL (80-100) Mean Corpuscular Hemoglobin 30.1 pg (25-34) Mean Corpuscular Hemoglobin Concent 32.9 g/dl (32-36) RDW Standard Deviation 43.5 fL (36.4-46.3) RDW Coefficient of Variation 13.1 % (11.5-14.5) Mean Platelet Volume 9.7 fL (7.4-10.4) Anion Gap 6.0 mmol/L (3-11) Est Creatinine Clear Calc Drug Dose 101.9 ml/min Estimated GFR () 119.3 Estimated GFR (Non- 102.9 BUN/Creatinine Ratio 33.7 (10-20) Calcium Level 9.6 mg/dl (8.5-10.1) Assessment and Plan 56 year old female with no other chronic medical issues admitted for bilateral ischemic toes s/p surgical debridement today. Vascular work up wnl hence unlikely to be due to vascular insufficiency. Concern for Raynaud's disease. Bilateral gangrenous/ischemic toes 2/2 to cold weather/piper bite vs. Raynaud's disease vs. vascular insufficiency - Bilateral xray of the feet - soft tissue edema and postop changes, no osteomyelitis - U/S lower extremities bilaterally; no venous abnormalities - HbA1c and B12 are within normal limits - Vascular surgery consult: - good pulses both feet, normal IVETH - US duplex no high grade stenosis/occlusion - nothing to do from vasc standpoint - Ortho consulted - discussed possibility of amputation. Patient not amenable at this time. - surgical debridement today - Rheumatology consulted for history and exam findings related to Raynaud's disease - recommended starting CC tatum and output follow up with Dr. Gore - Monitor for autoamputation vs OR unless concern for infection/osteomyelitis - Started on Amlodipine 2.5mg daily - IV abx: Vanc/Zosyn received for 4 days - Per ID stopped abx unlikely to be infectious in nature - Foot care: Kerlix dressing and waffle boots VTE ppx - Heparin q8h Dispo - pt prefers to go home; minimal steps at home and uses cane/walker Resident Involvement: Resident Care Provided Care Provided: Adult [facility] Medicine Reviewed: Pt Seen/Exam by Me History Resident Physician Supervision Note: I interviewed and examined the patient. Discussed with Dr. Loo and agree with findings and plan as documented in the note. Any exceptions or clarifications are listed here: Patient seen immediately after she returned from the PACU after her toe debridement. She states she feels well, she was eating dinner when I came in. She has no chest pain or shortness of breath. Afebrile Vitals reviewed No acute distress Regular rate and rhythm no murmurs rubs Lungs clear to auscultation bilaterally no wheezes crackles or rhonchi abdomen positive bowel sounds soft nontender nondistended Extremities bilateral feet in bulky dressing is completely covered with Andrea wrap and not removed she is immediately postop, fingers with some splinter hemorrhages and nail bed changes, a few scattered superficial peeling blisters but no digital ulcerations 56-year-old female with history of smoking who presents with multiple ischemic ulcerations of the bilateral toes, now status post debridement -Most likely Raynaud's phenomenon-started on amlodipine low-dose today given her borderline low blood pressures, can increase as tolerated -Should follow-up with rheumatology as an outpatient after discharge -[employer] on smoking cessation -Follow up on cryoglobulins and JOANA when available Documented By: Claudia Moore
[2017-02-24] MEDS ORDERED: BACITRACIN OINT 15 GM TUBE ONE (17:10)
[2017-02-24] MEDS ORDERED: LIDOCAINE HCL 1% 20 ML VIAL ONE (17:10)
[2017-02-24] MEDS ORDERED: BUPIVACAINE 0.5 % 5 MG/1 ML MPF 30ML VIAL ONE (17:10)
[2017-02-24] MEDS ORDERED: BACITRACIN 50000 UNIT VIAL ONE (17:11)
[2017-02-24] MEDS ORDERED: ONDANSETRON INJ 2 MG/ML 2 ML VIAL ONE (17:35)
[2017-02-24] MEDS ORDERED: DEXAMETHASONE SOD INJ 4 MG/ML VIAL ONE (17:35)
[2017-02-24] MEDS ORDERED: PHENYLEPHRINE 100MCG/ML 5ML SYR ONE (18:03)
--- NOTE | 2017-02-24 19:13 | [facility] Post Operative Brief Note ---
Immediate Operative Summary Operative Date Feb 24, 2017. Pre-Operative Diagnosis Ischemic necrosis toes 2,3,4,5 left foot; Ischemic necrosis toes 1,2,3,4 right foot Post-Operative Diagnosis Ischemic necrosis toes 2,3,4,5 left foot; Ischemic necrosis toes 1,2,3,4 right foot; Necrosis 3rd and 4th left nail plate, Exposed extensor tendon left third toe; Exposed tendon right 4th toe. Procedure(s) Performed Debridement of necrotic skin and subcutaneous tissue left 2nd toe, debridement of necrotic skin and subcutaneous tissue and tendon left 3rd toe, removal of nail plate left 3rd toe, debridement of necrotic skin and subcutaneous tissue tissue left 4th toe, removal of nail plate left 4th toe, debridement of necrotic skin and subcutaneous tissue left 5th toe; Debridement of necrotic skin and subcutaneous tissue right foot 1st, 2nd, 3rd, 4th toes; right 4th toe debridement of tendon Surgeon Dr. Infante Import Dispatcher Surgeon(s) None Estimated Blood Loss 1cc Findings See dict Specimens For Culture: 1. Great right toe subcutaneous abscess - routine - gram stain, c+s, aerobic/anaerobic Drains None Anesthesia GLMA w/ local bilateral feet Complication(s) None Disposition Recovery Room / PACU
--- NOTE | 2017-02-24 19:52 | Anesthesiology Progress Note ---
Anesthesia Post Op Note Date & Time Feb 24, 2017 at 19:52 Vital Signs Pain Intensity: 0 Vital Signs Past 12 Hours Date Time Temp Pulse Resp B/P (MAP) Pulse Ox O2 Delivery O2 Flow Rate FiO2 02/24/17 19:35 70 14 129/77 100 Oxymask 10 02/24/17 19:25 74 14 132/80 100 Oxymask 10 02/24/17 19:17 36.0 76 13 136/83 100 Oxymask 10 02/24/17 15:30 36.9 16 122/79 (93) 100 Room Air 02/24/17 15:25 36.5 76 18 117/79 (92) 100 Room Air 02/24/17 11:42 36.4 69 18 102/65 (77) 97 Room Air 02/24/17 08:42 99 Room Air Notes Mental Status: alert / awake / arousable, participated in evaluation Pt Amnestic to Procedure: Yes Nausea / Vomiting: adequately controlled Pain: adequately controlled Airway Patency, RR, SpO2: stable & adequate BP & HR: stable & adequate Hydration State: stable & adequate Anesthetic Complications: no major complications apparent
--- NOTE | 2017-02-24 20:24 | OPERATIVE REPORT ---
DATE OF OPERATION: 02/20/2017 PREOPERATIVE DIAGNOSES: 1. 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 2. Ischemic necrosis of the first, second, third and fourth toes of the right foot including skin and subcutaneous tissue. 3. Necrosis of the third and fourth toenail plate of the left foot. POSTOPERATIVE DIAGNOSES: Same as above in addition to exposed extensor tendon with necrosis, left third toe, exposed tendon with necrosis, right fourth toe. PROCEDURE: 1. Debridement of necrotic skin and subcutaneous tissue of the left foot second, third, fourth and fifth toes. 2. Debridement of necrotic skin and subcutaneous tissue, right foot first, second, third and fourth toes. 3. Removal of nail plate from the left third toe. 4. Removal of nail plate from the left fourth toe. 5. Debridement extensor tendon of the left third toe. 6. Debridement extensor tendon of the right 4th toe. 7. Incision and drainage abscess, right great toe. SURGEON: Quintin Infante DO. MEDICAL RECORD LIBRARIANS TEACHER: None. ANESTHESIA: General LMA with local bilateral feet. SPECIMENS: Aerobic, anaerobic, Gram stain right great toe. DRAINS: None. COMPLICATIONS: None. BLOOD LOSS: 1 mL. PERTINENT HISTORY: This is a 56-year-old female with a questionable history of Raynaud's phenomenon versus small vessel disease, bilateral feet. She had partial amputations of several toes approximately 4-5 years ago. She had most recently developed skin changes with gangrenous skin and gangrenous changes of the bilateral feet related to her toes. She was seen in [facility]. She was out in the cold last week and she came in, she noticed blisters on her feet. She noted that they were initially painful then they bursts and then noted discoloration of her skin. She tried to treat this with hydrogen peroxide soaks and that the nail of her right second toe became black and fell off. She had discoloration which did not improve after 3 days. She is a poor historian. She continues to smoke less than half pack a day and she has no history of frostbite. The patient was admitted to [facility] and placed on IV antibiotics and had some improvement of the cellulitic component of the feet; however, continued to have necrosis of the superficial tissues of the skin and subQ bilateral feet involving multiple toes. The patient was then scheduled for surgical debridement as indicated. There was discussion of possible amputation of her toes although the patient vehemently opposed to this and wanted attempt toe salvage at all costs because she felt that removal of her toes would prohibit her from riding her bicycle. All potential risks, benefits, complications, alternatives, rehab, potential for incomplete relief of symptoms, need for further surgery, DVT, PE, , persistent pain, swelling, scarring, weakness, neurovascular injury, wound complications, need for potential further amputation or debridement of bilateral feet was discussed with the patient. The patient decided to proceed with the procedure as indicated. DESCRIPTION OF THE PROCEDURE: The patient was taken to the operative suite and placed supine on the operating room table. I reviewed the consent and identification of proper operative site, the patient was anesthetized, LMA was placed. Bilateral feet were then sterilely prepped and draped, elevated, and exsanguinated on the left first with an Esmarch bandage, partial exsanguination was performed due to the nature of her wound necrosis and question regarding vascular insufficiency in the small vessels. This was performed in the mid foot proximally with a 4-inch Esmarch and Esmarch tourniquet was gently applied over sterile surgical towel left ankle first. Next, the 15 blade scalpel was then used to debride necrotic tissue both skin and subcutaneous tissue of the second toe left foot. Next, the 15 blade scalpel was used to debride necrotic skin and subcutaneous tissue from the third toe left foot. Next, the 15 blade scalpel was used to debride necrotic subcutaneous tissue and skin left fourth toe. Next, a 15 blade scalpel was used to debride necrotic skin and subcutaneous tissue in the left fifth toe. The left foot third and fourth nail plates were noted to be necrotic and were then removed after loosening between the nail plate and the germinal matrix with a hemostat. The nail plates were then easily removed. Healthy tissue appeared beneath the germinal matrix. The left third extensor tendon was noted to be exposed with some minor necrosis along the tenosynovium and the medial margin. This was sharply debrided to healthy tissue on the left third toe with a 15 blade scalpel. Next, after all necrotic tissue, both superficial skin and subQ were excised on the left 2nd, 3rd, 4th and 5th toes, the tissues were irrigated with sterile normal saline with bacitracin until clear. Next, top gloves and top sheet were changed followed by injection of 15 mL of 0.5% Marcaine plain in the intermetatarsal spaces and also on the dorsum of the foot for local anesthetic effect. Next, sterile compressive dressing consisting of Xeroform gauze, sterile 4 x 4's, 3 inch Kerlix roll and a 4 inch Andrea wrap were applied to the left foot. The tourniquet was released on the left and the foot was then covered with a sterile towel. Next, the attention was then directed toward the right foot. The right lower extremity was then elevated and partially exsanguinated due to the nature of the patient's small vessel disease from the mid foot extending proximally. Then a 4-inch Esmarch was used to exsanguinate the foot and placed over a sterile surgical towel at the level of the ankle. Next, a 15 blade scalpel was then used to excise necrotic skin and subcutaneous tissue from the right foot great toe. There was an abscess which was encountered. This abscess was incised and drained right great toe and aerobic, anaerobic and Gram stain specimens were obtained. Next, after the abscess was evacuated, 15 blade scalpel was used to debride necrotic skin and subcutaneous tissue from the right foot second toe. Next, a 15 blade scalpel was used to debride necrotic skin and subcutaneous tissue from the right third toe. Next, a 15 blade scalpel was used to debride necrotic skin and subcutaneous tissue from the right fourth toe. There was noted to be an exposed extensor tendon, right fourth dorsal toe. At this point, a 15 blade scalpel was used to sharply debride the necrotic margin of the right 4th toe extensor tendon to healthy tissue. Next, the tissues of the right foot were then copiously irrigated with sterile normal saline and bacitracin until clear. Next this was patted dry with sterile sponge. New top gloves and top sheet was applied to the right lower extremity followed by application of a superficial local anesthetic at the dorsum of the right foot at the level of the mid foot followed by injection of local anesthetic in the inner metatarsal spaces of the right foot for local anesthetic. Next, sterile compressive dressing consisting of Xeroform gauze, sterile 4 x 4's, 3-inch Kerlix roll and a 4-inch Andrea wrap was applied to the right foot. Tourniquet was released, the patient was awakened and taken to recovery in stable condition. I attest to the content of the Intraoperative Record and any orders documented therein. Any exception s are noted below.
[2017-02-25 03:25] VITALS: BP 125/77; PULSE 82; TEMP 36.7; O2SAT 97
[2017-02-25] MEDS: HEPARIN SOD 5000 UNIT/0.5 ML CARP SQ SCH ×3 (05:02→22:00)
[2017-02-25 06:48] LABS: HEMATOCRIT 34.8 % (37-47); HEMOGLOBIN 11.5 g/dL (12.0-16.0); MEAN CELL VOLUME 90.9 fL (80-100); MEAN PLATELET VOLUME 9.6 fL (7.4-10.4); PLATELET COUNT 366 K/uL (130-400); RED CELL DISTRIBUTION WIDTH SD 43.1 fL (36.4-46.3)
[2017-02-25 07:16] LABS: CALCIUM 9.1 mg/dl (8.5-10.1); CREATININE 0.6 mg/dl (0.60-1.20); POTASSIUM 4.4 mmol/L (3.5-5.1)
--- NOTE | 2017-02-25 08:09 | Orthopedic Progress Note ---
Orthopedic Progress Note Date of Service Feb 25, 2017. Subjective Post OP Day: 1 Reports: feeling well, pain controlled w PO medications, Denies: complaints Objective calves soft nontender, N/V intact, dressing C/D/I, A&O x3 Bilateral dressings on the feet are clean and dry. Left intact today since procedure was ~12 hours ago. Patient ambulating in room to the restroom. Date Time Temp Pulse Resp B/P (MAP) Pulse Ox O2 Delivery O2 Flow Rate FiO2 02/25/17 03:25 36.7 82 16 125/77 (93) 97 Room Air 02/24/17 23:10 36.4 80 17 142/78 (99) 99 Room Air 02/24/17 22:10 37.1 83 20 110/65 (80) 99 Room Air 02/24/17 21:10 37.2 86 20 138/80 (99) 100 Room Air 02/24/17 20:40 37.5 81 18 120/70 (87) 100 Nasal Cannula 2.0 02/24/17 20:10 36.5 69 16 122/75 (91) 100 Nasal Cannula 2.0 02/24/17 20:10 Nasal Cannula 2.0 02/24/17 20:10 Nasal Cannula 2.0 02/24/17 20:00 68 15 130/71 100 Nasal Cannula 2 02/24/17 19:45 36.4 72 19 129/69 100 Nasal Cannula 2 02/24/17 19:35 70 14 129/77 100 Oxymask 10 02/24/17 19:25 74 14 132/80 100 Oxymask 10 02/24/17 19:17 36.0 76 13 136/83 100 Oxymask 10 02/24/17 15:30 36.9 16 122/79 (93) 100 Room Air 02/24/17 15:25 36.5 76 18 117/79 (92) 100 Room Air 02/24/17 11:42 36.4 69 18 102/65 (77) 97 Room Air 02/24/17 08:42 99 Room Air Laboratory Results 24 Hours: Test 02/25/17 06:34 Hematocrit 34.8 % Hemoglobin 11.5 g/dL Assessment & Plan Assessment: POD #1 s/p 1. Debridement of necrotic skin and subcutaneous tissue of the left foot second, third, fourth and fifth toes. 2. Debridement of necrotic skin and subcutaneous tissue, right foot first, second, third and fourth toes. 3. Removal of nail plate from the left third toe. 4. Removal of nail plate from the left fourth toe. 5. Debridement extensor tendon of the left third toe. 6. Debridement extensor tendon of the right 4th toe. 7. Incision and drainage abscess, right great toe Bilateral gangrenous 2nd, 3rd, 4th and 5th toes. Plan: Dressing kept in place. Will plan for dressing change tomorrow prior to possible d/c. If medicine discharges patient today, recommend follow up with Dr. Infante's clinic next week. Will change WB status to heel WB bilateral LE. Appreciate Infectious disease input,doubt infection as well Discharge Planning Discharge Planning: uncertain
[2017-02-25] MEDS: AMLODIPINE BESYLATE 5 MG TAB PO SCH (08:10)
--- NOTE | 2017-02-25 08:11 | Consultant Recommendations ---
Feeder Worker Power Unit Operator Recommendations Date of Service Feb 25, 2017. Feeder Worker Power Unit Operator Recommendations ACTIVITY RECOMMENDATIONS: Limitations: Heel weight bearing only if able to tolerate. SPECIAL CARE INSTRUCTIONS: * Some drainage onto the dressing is normal and is no cause for alarm. * Some swelling is natural especially after walking. * When resting, keep your foot elevated above the level of your heart. * Call [facility] if you notice: -Increased drainage -Fever over 101 degrees F -Severe constant pain BANDAGE: * Leave bandage/cast in place unless otherwise directed. * Keep bandage/cast dry at all times. PIN CARE: * Leave pins alone. * If pins come loose or fall out, notify physician. FOLLOW UP VISIT WITH DR. NADERSON If appointment is not already scheduled: Please call [facility] after you get home today to schedule a follow-up appointment for [address] Anderson at .
--- NOTE | 2017-02-25 10:50 | Anesthesiology Progress Note ---
Anesthesia Post Op Note Date & Time Feb 25, 2017 at 10:49 Vital Signs Vital Signs Past 12 Hours Date Time Temp Pulse Resp B/P (MAP) Pulse Ox O2 Delivery O2 Flow Rate FiO2 02/25/17 08:20 Room Air 02/25/17 03:25 36.7 82 16 125/77 (93) 97 Room Air 02/24/17 23:10 36.4 80 17 142/78 (99) 99 Room Air Notes Mental Status: alert / awake / arousable, participated in evaluation Pt Amnestic to Procedure: Yes Nausea / Vomiting: adequately controlled Pain: adequately controlled Airway Patency, RR, SpO2: stable & adequate BP & HR: stable & adequate Hydration State: stable & adequate Anesthetic Complications: no major complications apparent
[2017-02-25 12:28] VITALS: BP 128/79; PULSE 90; TEMP 36.3; O2SAT 98
[2017-02-25 15:20] VITALS: BP 108/71; PULSE 80; TEMP 36.7; O2SAT 97
[2017-02-25 16:00] VITALS: O2SAT 98
--- NOTE | 2017-02-25 21:42 | Family Medicine Progress Note ---
Progress Note Date of Service Feb 25, 2017. Subjective Pt evaluation today including: conversation w/ patient, physical exam, chart review, lab review Pain: denies any pain this AM PO Intake: tolerating Voiding: no voiding problems This AM pt denies any discomfort or pain in her legs. Reports doing well after debridement. Constitutional: No fever, No chills Respiratory: No shortness of breath Cardiovascular: No chest pain Abdomen: No pain, No nausea, No vomiting Female : No dysuria Medications Current Inpatient Medications Medications (Trade) Dose Ordered Sig/Arin Route Start Time Stop Time Status Last Admin Dose Admin Heparin Sodium (Porcine) (Heparin Sq 5000 Unit/0.5ml) 5,000 unit Q8 SQ 02/20/17 14:00 03/22/17 13:59 Acetaminophen (Tylenol Tab) 650 mg Q4H PRN PO 02/20/17 03:45 03/22/17 03:44 Al Hydrox/Mg Hydrox/Simethicone (Maalox Max Susp) 15 ml Q4H PRN PO 02/20/17 03:45 03/22/17 03:44 Magnesium Hydroxide (Milk Of Magnesia Susp) 30 ml Q6H PRN PO 02/20/17 03:45 03/22/17 03:44 Polyethylene (Miralax Powder Packet) 17 gm DAILY PRN PO 02/20/17 03:45 03/22/17 03:44 Ondansetron HCl (Zofran Inj) 4 mg Q6H PRN IV 02/20/17 03:45 03/22/17 03:44 Amlodipine Besylate (Norvasc Tab) 2.5 mg QAM PO 02/25/17 09:00 03/27/17 08:59 02/25/17 08:10 2.5 MG Objective Vital Signs Date Time Temp Pulse Resp B/P (MAP) Pulse Ox O2 Delivery O2 Flow Rate FiO2 02/25/17 19:20 Room Air 02/25/17 16:00 98 Room Air 02/25/17 15:20 36.7 80 18 108/71 (83) 97 Room Air 02/25/17 12:28 36.3 90 17 128/79 (95) 98 Room Air 02/25/17 08:20 Room Air 02/25/17 03:25 36.7 82 16 125/77 (93) 97 Room Air 02/24/17 23:10 36.4 80 17 142/78 (99) 99 Room Air 02/24/17 22:10 37.1 83 20 110/65 (80) 99 Room Air Physical Exam General Appearance: no apparent distress Eyes: normal inspection, sclerae normal Respiratory/Chest: lungs clear, normal breath sounds Cardiovascular: regular rate, rhythm, no murmur Abdomen: normal bowel sounds, non tender, soft Extremities: non-tender, no pedal edema, + pertinent finding (bilateral toes wrapped in dressing and andrea wrapped; clean and intact) Neurologic/Psychiatric: alert, oriented x 3 Laboratory Results 02/25/17 06:34 02/25/17 06:34 Test 02/25/17 06:34 Red Blood Count 3.83 M/uL (4.2-5.4) Mean Corpuscular Volume 90.9 fL (80-100) Mean Corpuscular Hemoglobin 30.0 pg (25-34) Mean Corpuscular Hemoglobin Concent 33.0 g/dl (32-36) RDW Standard Deviation 43.1 fL (36.4-46.3) RDW Coefficient of Variation 13.0 % (11.5-14.5) Mean Platelet Volume 9.6 fL (7.4-10.4) Anion Gap 4.0 mmol/L (3-11) Est Creatinine Clear Calc Drug Dose 96.8 ml/min Estimated GFR () 117.3 Estimated GFR (Non- 101.2 BUN/Creatinine Ratio 24.7 (10-20) Calcium Level 9.1 mg/dl (8.5-10.1) Assessment and Plan 56 year old female with no other chronic medical issues admitted for bilateral ischemic toes s/p surgical debridement yesterday. Vascular work up wnl hence unlikely to be due to vascular insufficiency. Concern for Raynaud's disease. Bilateral gangrenous/ischemic toes 2/2 to cold weather/piper bite vs. Raynaud's disease vs. vascular insufficiency - Bilateral xray of the feet - soft tissue edema and postop changes, no osteomyelitis - U/S lower extremities bilaterally; no venous abnormalities - HbA1c and B12 are within normal limits - Vascular surgery consult: - good pulses both feet, normal IVETH - US duplex no high grade stenosis/occlusion - nothing to do from vasc standpoint - Ortho consulted - surgical debridement 02/24 - debridement of necrotic skin and subq tissue of R 1-4 digits and L 2-5 digits - I&D R 1st digit - nail plate removal L digits 3-4 - extensor tendon debridement R 4th toe and L 3rd toe - wound culture growing few gram + cocci (staph aureus) - dressing change 02/26 and discharge - WB heel bilateral LE - Follow up with Dr. Infante in 1 wk - Rheumatology consulted for history and exam findings related to Raynaud's disease - recommended starting CC tatum and output follow up with Dr. Gore - Monitor for autoamputation vs OR unless concern for infection/osteomyelitis - Started on Amlodipine 2.5mg daily - IV abx: Vanc/Zosyn received for 4 days - Per ID stopped abx unlikely to be infectious in nature VTE ppx - Heparin q8h Dispo - PT/OT eval pending - pt prefers to go home; lives alone; minimal steps at home and uses cane/walker Resident Involvement: Resident Care Provided Care Provided: Adult Hospital Medicine Reviewed: Pt Seen/Exam by Me History Resident Physician Supervision Note: I interviewed and examined the patient. Discussed with Dr. Loo and agree with findings and plan as documented in the note. Any exceptions or clarifications are listed here: Doing very well, has no complaints, no chest pain or shortness of breath. Pain is controlled, she is ambulating around the room on her heels as directed by orthopedics. She is anxious for discharge to home tomorrow Vitals reviewed No acute distress Regular rate and rhythm no murmurs rubs Lungs clear to auscultation bilaterally no wheezes crackles or rhonchi abdomen positive bowel sounds soft nontender nondistended Extremities bilateral feet in bulky dressing is completely covered with Andrea wrap and not removed, fingers with some splinter hemorrhages and nail bed changes, a few scattered superficial peeling blisters but no digital ulcerations 56-year-old female with history of smoking who presents with multiple ischemic ulcerations of the bilateral toes, now status post debridement -Most likely Raynaud's phenomenon-started on amlodipine low-dose given her borderline low blood pressures, can increase as tolerated -Should follow-up with rheumatology as an outpatient after discharge -[place] C[employer] Helper on smoking cessation -Follow up on cryoglobulins and JOANA when available -Plan for discharge tomorrow, PT/OT eval's and will need home health Documented By: Claudia Moore
[2017-02-25 23:00] VITALS: BP 125/73; PULSE 86; TEMP 36.8; O2SAT 100
[2017-02-26] MEDS: HEPARIN SOD 5000 UNIT/0.5 ML CARP SQ SCH ×2 (05:02→12:44)
[2017-02-26 07:35] VITALS: BP 110/65; PULSE 72; TEMP 37.3; O2SAT 98
[2017-02-26] MEDS: AMLODIPINE BESYLATE 5 MG TAB PO SCH (07:42)
[2017-02-26 07:48] LABS: HEMATOCRIT 34.4 % (37-47); HEMOGLOBIN 11.2 g/dL (12.0-16.0); MEAN CORPUSCULAR HEMOGLOBIN 29.9 pg (25-34); MEAN CORPUSCULAR HGB CONC 32.6 g/dl (32-36); MEAN PLATELET VOLUME 9.8 fL (7.4-10.4); PLATELET COUNT 358 K/uL (130-400); RED CELL DISTRIBUTION WIDTH CV 13.1 % (11.5-14.5); RED CELL DISTRIBUTION WIDTH SD 43.9 fL (36.4-46.3); WHITE BLOOD COUNT 9.18 K/uL (4.8-10.8)
[2017-02-26 08:18] LABS: CALCIUM 9.5 mg/dl (8.5-10.1); CREATININE 0.6 mg/dl (0.60-1.20); POTASSIUM 4.1 mmol/L (3.5-5.1)
--- NOTE | 2017-02-26 13:08 | Orthopedic Progress Note ---
Orthopedic Progress Note Date of Service Feb 26, 2017. Subjective Post OP Day: 2 Reports: feeling well, pain controlled w PO medications, Denies: chest pain, SOB , calf pain Objective calves soft nontender, N/V intact, capillary refill less than 2 sec., A&O x3 Right foot: 3rd and 4th toe dorsal wounds with granulation. No exposed tendon noted. Areas are tender--4th toe > 3rd toe. Mild erythema of the 2nd and 3rd toes with a more moderate erythema around the wound on the 4th toe. Left foot: Stable 2nd, 3rd, 4th toe ulcerations. No erythema. No drainage. Date Time Temp Pulse Resp B/P (MAP) Pulse Ox O2 Delivery O2 Flow Rate FiO2 02/26/17 07:45 Room Air 02/26/17 07:35 37.3 72 18 110/65 (80) 98 Room Air 02/26/17 00:45 Room Air 02/25/17 23:00 36.8 86 18 125/73 (90) 100 Room Air 02/25/17 19:20 Room Air 02/25/17 16:00 98 Room Air 02/25/17 15:20 36.7 80 18 108/71 (83) 97 Room Air Laboratory Results 24 Hours: Test 02/26/17 07:09 Hematocrit 34.4 % Hemoglobin 11.2 g/dL Assessment & Plan Assessment: POD #2 s/p 1. Debridement of necrotic skin and subcutaneous tissue of the left foot second, third, fourth and fifth toes. 2. Debridement of necrotic skin and subcutaneous tissue, right foot first, second, third and fourth toes. 3. Removal of nail plate from the left third toe. 4. Removal of nail plate from the left fourth toe. 5. Debridement extensor tendon of the left third toe. 6. Debridement extensor tendon of the right 4th toe. 7. Incision and drainage abscess, right great toe Bilateral gangrenous 2nd, 3rd, 4th and 5th toes. Plan: Bilateral dressings changed with adaptic cut to the size of the ulcerations and gauze. Recommend daily dressing changes. Heel WB only bilateral LE. Ortho to sign off. No further surgical tx at this time. F/U with Dr. Infante's clinic in 1 wk. Appreciate Infectious disease input,doubt infection as well Discharge Planning Discharge Planning: uncertain
[2017-02-26] MEDS ORDERED: CEPHALEXIN MONOHYDRATE 500 MG CAP PO SCH (14:00)
[2017-02-26] MEDS ORDERED: KFL500 PO (14:35)
[2017-02-26] MEDS ORDERED: NRV5 PO (14:35)
--- NOTE | 2017-02-26 14:36 | Discharge Instructions ---
Discharge Instructions Date of Service Feb 26, 2017. Admission Reason for Admission: Gangrenous Toe Discharge Discharge Diagnosis / Problem: ischemic bilateral toes; raynaud's disease Discharge Goals Goal(s): Decrease discomfort, Diagnostic testing, Therapeutic intervention Activity Recommendations Activity Limitations: per Instructions/Follow-up section . Instructions / Follow-Up Instructions / Follow-Up Ms. Foster you were admitted for piper bites of your toes on both feet. We treated you for possible infection with antibiotics. Dr. Infante, your orthopedist also removed tissue from your toes. Instructions from Dr. Infante are included below. We were also concerned about a medical conditioned called Raynaud's disease which can cause your toes, fingers, tip of nose and ears to feel numb and cold in response to cold weather or stress. We talked to our supervisor cd area doctors and with their recommendation started you on a medication called Amlodopine 2.5mg once a day which can help prevent piper bites in the future. We recommend you follow up with the supervisor cd area, Dr. Gore in 1-2 weeks after your discharge. - Please continue to take antibiotic, Keflex (Cephalexin) 500mg three times a day for 7 days - Change your dressings every day - You can put weight on your heels but not your toes - Follow up with Dr. Infante on 03/02/17 at 1pm at [address] [place] [address] - Take Amlodipine 2.5mg once a day - Call to make appointment with Dr. Gore, supervisor cd area in 1-2 weeks for better management of Raynaud's disease at [phone] - See your primary care doctor within a week and take your hospital discharge paperwork with you - We highly encourage you to quit smoking. Your primary care doctor will be able to help you successfully quit INSTRUCTIONS FROM ORTHOPEDIST: Limitations: Heel weight bearing only if able to tolerate. SPECIAL CARE INSTRUCTIONS: * Some drainage onto the dressing is normal and is no cause for alarm. * Some swelling is natural especially after walking. * When resting, keep your foot elevated above the level of your heart. * Call [facility] if you notice: -Increased drainage -Fever over 101 degrees F -Severe constant pain BANDAGE: * Leave bandage/cast in place unless otherwise directed. * Keep bandage/cast dry at all times. PIN CARE: * Leave pins alone. * If pins come loose or fall out, notify physician. FOLLOW UP VISIT WITH DR. INFANTE March 02, 2017 at 1pm at [address] [place] [address], [place] Please call [facility] Dr. Infante at if unable to keep your appointment Current Hospital Diet Patient's current hospital diet: Regular Diet Discharge Diet Recommended Diet: Regular Diet Procedures Procedures Performed: Debridement of necrotic skin and subcutaneous tissue left 2nd toe, debridement of necrotic skin and subcutaneous tissue and tendon left 3rd toe, removal of nail plate left 3rd toe, debridement of necrotic skin and subcutaneous tissue tissue left 4th toe, removal of nail plate left 4th toe, debridement of necrotic skin and subcutaneous tissue left 5th toe; Debridement of necrotic skin and subcutaneous tissue right foot 1st, 2nd, 3rd, 4th toes; right 4th toe debridement of tendon Pending Studies Studies pending at discharge: no Laboratory Results Hemoglobin A1c Test 02/20/17 07:45 Range/Units Estimated Average Glucose 114 mg/dl Hemoglobin A1c 5.6 4.5-5.6 % Medical Emergencies . Who to Call and When: Medical Emergencies: If at any time you feel your situation is an emergency, please call 911 immediately. . Non-Emergent Contact Non-Emergency issues call your: Primary Care Provider . . "Provider Documentation" section prepared by Danielle Loo. . [employer] Program Coordinator Recommendations [employer] Program Coordinator Recommendations: ACTIVITY RECOMMENDATIONS: Limitations: Heel weight bearing only if able to tolerate. SPECIAL CARE INSTRUCTIONS: * Some drainage onto the dressing is normal and is no cause for alarm. * Some swelling is natural especially after walking. * When resting, keep your foot elevated above the level of your heart. * Call [facility] if you notice: -Increased drainage -Fever over 101 degrees F -Severe constant pain BANDAGE: * Leave bandage/cast in place unless otherwise directed. * Keep bandage/cast dry at all times. PIN CARE: * Leave pins alone. * If pins come loose or fall out, notify physician. FOLLOW UP VISIT WITH DR. INFANTE If appointment is not already scheduled: Please call [facility] after you get home today to schedule a follow-up appointment for [address] Infante at . VTE Core Measure Inpt VTE Proph given/why not?: Unfractionated heparin SQ
--- NOTE | 2017-02-26 16:06 | Discharge Summary ---
Discharge Summary Date of Service Feb 26, 2017. Discharge Summary Admission Date: Feb 20, 2017 at 03:38 Discharge Date: Feb 26, 2017 Discharge Disposition: Home with services Principal Diagnosis: ischemic bilateral toes; raynaud's disease Problems/Secondary Diagnoses: Current smoker Immunizations: Have You Had Influenza Vaccine: No History of Tetanus Vaccine?: No History of Pneumococcal: No History of Hepatitis B Vaccine: No Procedures: #1 Debridement b/l toes surgical debridement 02/24 - debridement of necrotic skin and subq tissue of R 1-4 digits and L 2-5 digits - I&D R 1st digit - nail plate removal L digits 3-4 - extensor tendon debridement R 4th toe and L 3rd toe #2 VENOUS DOPPLER LWR EXT BILA HISTORY: Ischemia. Pain. gangrenous toes COMPARISON STUDY: None. FINDINGS: There is normal compressibility, flow, and augmentation within the bilateral lower extremity deep venous systems. IMPRESSION: No DVT within the right or left lower extremity. #3 R FOOT MIN 3 VIEWS ROUTINE CLINICAL HISTORY: gangrenous toes, asses for osteo osteomyelitis COMPARISON: None. DISCUSSION: Prior resection of the middle and distal phalanges phalanx of the second toe. Resection of the phalanges of the exception of the base of the proximal phalanx great toe. The margins are sclerotic and distally. There is evidence for moderate localized soft tissue edematous change. Well-defined osteomyelitis is not seen currently. Heel spur is present. IMPRESSION: Postoperative and soft tissue edematous supervisor records change the phalanges of the toes. No evidence for acute bony destructive process. #4 L FOOT MIN 3 VIEWS ROUTINE CLINICAL HISTORY: gangrenous toes, asses for osteo COMPARISON: None. DISCUSSION: Generalized is moderate soft tissue edema. Prior resection of the phalanges of the great toe. Partial resection distal aspect second metatarsal. No bony destructive process. Moderate soft tissue edema IMPRESSION: Soft tissue edema and postoperative changes as described. No evidence for an acute bony abnormality. #5 Bilateral ANKLE BRACHIAL INDEX LIMITED CLINICAL HISTORY: bilateral gangrenous toes COMPARISON STUDY: None. FINDINGS: The right ankle-brachial index was measured to be between 1.04 and 0.99. The left ankle-brachial index was measured between 1.04 and 0.87 IMPRESSION: Bilateral ankle brachial indices are within normal limits as described above. #6 ART DOP LOWER EXT BILAT HISTORY: 56 years-old Female gangrene of toes COMPARISON: Ankle brachial index 02/21/2017 TECHNIQUE: Multiple real-time sonographic images of the bilateral lower extremity arterial structures were obtained assessing grayscale appearance, color and spectral flow FINDINGS: RIGHT: Triphasic waveforms are noted within the common femoral, profunda femoris, superficial femoral, popliteal, posterior tibial, anterior tibial and dorsalis pedis arteries. There is biphasic and triphasic flow noted within the peroneal, and portions of the dorsalis tomlin artery. Mild atherosclerotic plaquing noted. LEFT: Triphasic waveforms are noted within the common femoral, profunda femoris, superficial femoral, popliteal, posterior tibial, anterior tibial, peroneal and dorsalis pedis arteries. Mild atherosclerotic plaquing. IMPRESSION: 1. No high-grade stenosis or occlusion identified. 2. There is a biphasic flow noted within the distal right lower extremity as above. Consultations: Orthopedics Rheumatology Medication Reconciliation New Medications: Amlodipine Besylate (Amlodipine Besylate) 5 Mg Tab 2.5 MG PO QAM for 30 Days, #15 TAB Cephalexin Monohydrate (Cephalexin) 500 Mg Cap 500 MG PO TID for 7 Days, #21 CAP Discharge Exam Review of Systems: Constitutional: No fever, No chills Respiratory: No shortness of breath Cardiovascular: No chest pain Abdomen: No pain, No nausea, No vomiting Musculoskeletal: + problem reported (denied pain in feet) Genitourinary - Female: No dysuria Physical Exam: General Appearance: no apparent distress Eyes: normal inspection, sclerae normal ENT: + pertinent finding (poor dentition) Respiratory/Chest: lungs clear, normal breath sounds Cardiovascular: regular rate, rhythm, no murmur Abdomen / GI: normal bowel sounds, non tender, soft Extremities: + pertinent finding (Feet 2+ pulses, intact and clean dressing , no edema, good ankle ROM) Neurologic/Psychiatric: alert, oriented x 3 Skin: warm/dry Hospital Course 56 year old female with no other chronic medical issues admitted for bilateral ischemic toes s/p surgical debridement yesterday. Vascular work up wnl hence unlikely to be due to vascular insufficiency. Concern for Raynaud's disease. Bilateral gangrenous/ischemic toes 2/2 to cold weather/piper bite vs. Raynaud's disease vs. vascular insufficiency - Bilateral xray of the feet - soft tissue edema and postop changes, no osteomyelitis - U/S lower extremities bilaterally; no venous abnormalities - HbA1c and B12 within normal limits - Vascular surgery consult: - good pulses both feet, normal IVETH - US duplex no high grade stenosis/occlusion - Ortho consulted - surgical debridement 02/24 - debridement of necrotic skin and subq tissue of R 1-4 digits and L 2-5 digits - I&D R 1st digit - nail plate removal L digits 3-4 - extensor tendon debridement R 4th toe and L 3rd toe - wound culture growing few gram + cocci (staph aureus) - Dced with Keflex 500mg TID x 7 days - WB heel bilateral LE - Follow up with Dr. Infante on 03/02 at 1pm - Rheumatology consulted for history and exam findings related to Raynaud's disease - recommended starting CC tatum and output follow up with Dr. Gore - Monitor for autoamputation vs OR unless concern for infection/osteomyelitis - Received and Dced with Amlodipine 2.5mg daily - IV abx: Vanc/Zosyn received for 4 days - Per ID stopped abx as unlikely to be infectious in nature Full code VTE ppx - Heparin q8h - pt preferred to go home; lives alone; minimal steps at home and uses cane/ walker vs HSNV Total Time Spent: Greater than 30 minutes This includes examination of the patient, discharge planning, medication reconciliation, and communication with other providers. Discharge Instructions Please refer to the electronic Patient Visit Report (Discharge Instructions) for additional information. Follow-Up With PCP within 2 weeks With orthopedics in one week With rheumatology within 2 weeks Additional Copies To Marcela Gore MD Reviewed: Pt Seen/Exam by Me History Resident Physician Supervision Note: I interviewed and examined the patient. Discussed with Dr. Loo and agree with findings and plan as documented in the note. Any exceptions or clarifications are listed here: Doing very well, has no complaints, no chest pain or shortness of breath. Pain is controlled, she is ambulating around the room on her heels as directed by orthopedics. She is ready for discharge to home. Orthopedics change her dressings today on her feet. Counseled on avoidance of cold temperatures and keeping her extremities warm Vitals reviewed No acute distress Regular rate and rhythm no murmurs rubs Lungs clear to auscultation bilaterally no wheezes crackles or rhonchi abdomen positive bowel sounds soft nontender nondistended Extremities bilateral feet in bulky dressing is completely covered with Andrea wrap and not removed, fingers with some splinter hemorrhages and nail bed changes, a few scattered superficial peeling blisters but no digital ulcerations 56-year-old female with history of smoking who presents with multiple ischemic ulcerations of the bilateral toes, now status post debridement. Toe abscess debrided during surgery is growing out a small amount of MSSA -Most likely Raynaud's phenomenon-started on amlodipine low-dose given her borderline low blood pressures, can increase as tolerated as an outpatient -Finish seven-day course of Keflex for MSSA toe abscess -Should follow-up with rheumatology as an outpatient after discharge -Counseled on smoking cessation -JOANA is negative, Follow up on cryoglobulins as an outpatient which were still pending at time of discharge -Plan for discharge today with home health Documented By: Claudia Moore
[2017-02-26 16:15] VITALS: BP 110/65; PULSE 72; TEMP 37.3; O2SAT 98
== END 2017-02-26 16:45 | disposition home health service (06) | DRG 501 ==
LOC: EDSTATUS 02-20 00:12 → UNDOADMIN 02-20 01:46 → C.MSN 02-20 01:46
PROVIDERS: ADMIT Hospitalist; ATTEND Family Medicine
PROC: 0HTRXZZ Resection of Toe Nail, External Approach (ICD-10-PCS; principal; 2017-02-20)
PROC: 0JDQ0ZZ Extraction of Right Foot Subcutaneous Tissue and Fascia, Open Approach (ICD-10-PCS; principal; 2017-02-20)
PROC: 0JDR0ZZ Extraction of Left Foot Subcutaneous Tissue and Fascia, Open Approach (ICD-10-PCS; principal; 2017-02-20)
PROC: 0J9Q0ZZ Drainage of Right Foot Subcutaneous Tissue and Fascia, Open Approach (ICD-10-PCS; principal; 2017-02-20)
PROC: 0LDV0ZZ Extraction of Right Foot Tendon, Open Approach (ICD-10-PCS; principal; 2017-02-20)
PROC: 0LDW0ZZ Extraction of Left Foot Tendon, Open Approach (ICD-10-PCS; principal; 2017-02-20)
DX: I73.01 Raynaud's syndrome with gangrene (principal); L03.031 Cellulitis of right toe; L03.032 Cellulitis of left toe; F17.200 Nicotine dependence, unspecified, uncomplicated; B95.61 Methicillin susceptible Staphylococcus aureus infection as the cause of diseases classified elsewhere; Z86.19 Personal history of other infectious and parasitic diseases

== ENCOUNTER 2018-03-15 22:10 | Inpatient (IN) ==
[2018-03-16] MEDS ORDERED: ONDANSETRON INJ 2 MG/ML 2 ML VIAL IV PRN (00:02)
[2018-03-16] MEDS ORDERED: POLYETHYLENE (MIRALAX) 17 GM PACK PO PRN (00:02)
[2018-03-16] MEDS ORDERED: MAGNESIUM HYDROXIDE SUSP 30 ML UDC PO PRN (00:02)
[2018-03-16] MEDS ORDERED: ALUMINUM/MAGNESIUM SUSP 30 ML UDC PO PRN (00:02)
[2018-03-16] MEDS ORDERED: PIPERACILL/TAZOBAC CONSULT ACTIVE PRN (00:07)
[2018-03-16] MEDS ORDERED: VANCOMYCIN CONSULT ACTIVE PRN (00:07)
[2018-03-16] MEDS ORDERED: PIPERACILLIN/TAZOBACTAM 2.25 GM in DEXTROSE 5% 100 ML IV SCH (00:15)
[2018-03-16] MEDS ORDERED: VANCOMYCIN HCL 1,000 MG in SODIUM CHLORIDE 0.9% 250 ML IV SCH (00:15)
--- NOTE | 2018-03-16 00:21 | History & Physical Report ---
Date of Service March 16, 2018 Assessment & Plan (1) Sepsis: 58-year-old female who presents with frostbite of bilateral feet. Has history of frostbite of bilateral feet as of one year ago. Lives in unheated trailer. Previously thought to perhaps have vascular compromise due to some autoimmune issue or raynauds, although JOANA and cryoglobulin were both negative as well as hepatitis C. Sent home on amlodipine, has not followed up with primary care. Assessment -frostbite with resultant sepsis (tachycardia, WBC 19 at outside hospital) -given fluid boluses 2200ml at outside hospital, zosyn also, but vancomycin not given yet due to transfer -lac <2.0 at outside hospital Plan -consult Orthopedics, Dr. Infante she has been seen by him in the past -wound care consult to provider and nursing -waffle boots -Vanc and Zosyn -maintenance fluids -pain control with tylenol, dilaudid prn -blood cultures pending here -will likely need MRI imaging to assess for subcut air in left foot, fractures/ osteomyelitis. Defer to day team. Difficult social situation -This is a second time patient has presented medical problems secondary to exposure to the elements -Discharge planning Transaminitis -AST/ALT 204/81 may be consistent with excessive alcohol intake although blood alcohol level normal here. -Elevated AST also consistent with necrosis and inflammation of skeletal muscle -Follow FEN/GI: regular diet, NSS @ 80 ml/hr DVT ppx: lovenox q24h CODE STATUS: FULL as confirmed with pt. DISPO: Tele. Will need PT/OT. Discharge planning ordered. Other ongoing medical problems: Poor dentition -May benefit from referral to [facility] dentistry although transport may be an issue. (2) Frostbite of both feet: History of Present Illness Primary Care Provider: NO PCP 58-year-old female with past medical history of bilateral foot toe gangrene requiring surgical debridement secondary to frostbite 1 year ago, who presents with similar complaints. Patient states she had noticed bilateral foot pain starting several days ago, subsequent redness and swelling of bilateral feet with purple and blue coloring as of this morning with blisters. She asked her friend to drive her to the [place] emergency room. They saw her there and performed x-ray imaging of both feet which found a questionable air in soft tissue of left toe x-ray, with apparent fractures in the right foot. Patient was tachycardic and febrile on presentation. Lactic acid was normal, BMP notable for transaminitis AST over ALT 316/120, elevated alk phos 131, magnesium 1.6. BUN/creatinine 19/0.9. INR 1.3. WBC 19.4 with neutrophilia. Patient was administered fluid boluses as well as Zosyn antibiotic. Tylenol for fever. Transferred here for further management and care. Social history: lives alone in unheated trailer with cats. Smokes 1-3 cigarettes per day. Occasional alcohol use (1 beer or mixed drink per week). Denies drug use. Allergies Allergy/AdvReac Type Severity Reaction Status Date / Time No Known Allergies Allergy Unverified 02/20/17 03:53 Home Medications Home Medications Medication Instructions Recorded Confirmed Type Amlodipine Besylate 2.5 mg PO QAM 30 Days #15 tab 02/26/17 Rx Cephalexin Monohydrate (Cephalexin) 500 mg PO TID 7 Days #21 cap 02/26/17 Rx Past Med/Surg History Medical History Amputated great toe of left foot Amputated great toe of right foot Osteomyelitis Wound infection Surgical History Hx of appendectomy Hx of cholecystectomy Hx of tonsillectomy Social History Current Living Situation: Alone Feels Safe at Home: Yes Smoking Status: Current every day smoker Tobacco Type: cigarettes Cigarettes per Day: 1-3 Do You Dip or Chew Tobacco: No Second Hand Exposure: No Tobacco Cessation Education Requested by Patient: No Hx Alcohol Use: Yes Alcohol Intake Frequency: a few times a week Beliefs That Will Affect Care: None Communication Ability: Effective Review of Systems All systems reviewed & are unremarkable except as noted in HPI & below ( Endorses bilateral foot pain and heel pain. Denies fevers, chills, weakness, chest tightness, abdominal pain, diarrhea, constipation.) Physical Exam 2 Physical Exam: Vitals noted in room and within normal limits with the exception of sinus tachycardia 120s. GENERAL: Awake, alert to person, place, and time, nontoxic-appearing, in no distress. Poor dentition. HENT: Normocephalic, atraumatic. . EYES: Normal conjunctiva. Sclera non-icteric. EOMI. NECK: Supple. Full range of motion. No JVD RESPIRATORY: Clear to auscultation. Normal work of breathing. CARDIAC: Regular rate, normal rhythm. Extremities warm and well perfused, 2+ radial pulses bilaterally; 2+ posterior tibialis pulses bilaterally. Confirmed by Doppler ABDOMEN: Soft, non-distended. No tenderness to palpation in all four quadrants. No rebound or guarding. No masses. Bowel sounds are normal. LOWER EXTREMITIES: Inspection of feet reveal cyanosis, blistering, erythema swelling consistent with pernio presentation of frostbite. Status post right hallux amputation. NEURO: No focal gross focal motor deficits noted. . CN II-XII grossly in tact. SKIN: Significant lesions consistent with frostbite limited to bilateral feet.. PSYCH: Appropriate mood and affect. Cooperative. Exam as done by Adele Johnson MD, [employer]. Results & Data Laboratory Results 03/16/18 03/16/18 03/16/18 Range/Units 00:28 00:28 00:28 WBC (4.8-10.8) K/uL RBC (4.2-5.4) M/uL Hgb (12.0-16.0) g/dL Hct (37-47) % MCV (80-100) fL MCH (25-34) pg MCHC (32-36) g/dL RDW Std Deviation (36.4-46.3) fL RDW Coeff of Darline (11.5-14.5) % Plt Count (130-400) K/uL MPV (7.4-10.4) fL Immature Gran % (Auto) % Neut % (Auto) % Lymph % (Auto) % [place] % (Auto) % Eos % (Auto) % Baso % (Auto) % Immature Gran # (Auto) (0.00-0.02) K/uL Neut # (Auto) (1.4-6.5) K/uL Lymph # (Auto) (1.2-3.4) K/uL [place] # (Auto) (0.11-0.59) K/uL Eos # (Auto) (0-0.5) K/uL Baso # (Auto) (0-0.2) K/uL RBC Morphology PT 11.4 (9.0-12.0) Seconds INR 1.1 (0.9-1.1) Sodium (136-145) mmol/L Potassium (3.5-5.1) mmol/L Chloride (98-107) mmol/L Carbon Dioxide (21-32) mmol/L Anion Gap (3-11) BUN (7-18) mg/dl Creatinine (0.6-1.2) mg/dl Est Cr Clr Drug Dosing Est GFR ( Amer) Est GFR (Non-Af Amer) BUN/Creatinine Ratio (10-20) Glucose (70-99) mg/dl Lactate 0.7 (0.4-2.0) mmol/L Calcium (8.5-10.1) mg/dl Total Bilirubin (0.2-1) mg/dl AST (15-37) U/L ALT (12-78) U/L Alkaline Phosphatase (45-117) U/L C-Reactive Protein (0-0.29) mg/dl Total Protein (6.4-8.2) gm/dl Albumin (3.4-5.0) gm/dl Globulin (2.5-4.0) gm/dl Albumin/Globulin Ratio (0.9-2) Ethyl Alcohol mg/dL < 3.0 (0-3) mg/dl 03/16/18 03/16/18 Range/Units 00:28 00:28 WBC 15.24 H (4.8-10.8) K/uL RBC 3.42 L (4.2-5.4) M/uL Hgb 10.4 L (12.0-16.0) g/dL Hct 30.8 L (37-47) % MCV 90.1 (80-100) fL MCH 30.4 (25-34) pg MCHC 33.8 (32-36) g/dL RDW Std Deviation 43.9 (36.4-46.3) fL RDW Coeff of Darline 13.3 (11.5-14.5) % Plt Count 213 (130-400) K/uL MPV 9.7 (7.4-10.4) fL Immature Gran % (Auto) 0.3 % Neut % (Auto) 80.2 % Lymph % (Auto) 10.4 % [place] % (Auto) 8.7 % Eos % (Auto) 0.3 % Baso % (Auto) 0.1 % Immature Gran # (Auto) 0.05 H (0.00-0.02) K/uL Neut # (Auto) 12.22 H (1.4-6.5) K/uL Lymph # (Auto) 1.58 (1.2-3.4) K/uL [place] # (Auto) 1.33 H (0.11-0.59) K/uL Eos # (Auto) 0.04 (0-0.5) K/uL Baso # (Auto) 0.02 (0-0.2) K/uL RBC Morphology Unremarkable PT (9.0-12.0) Seconds INR (0.9-1.1) Sodium 136 (136-145) mmol/L Potassium 3.6 (3.5-5.1) mmol/L Chloride 106 (98-107) mmol/L Carbon Dioxide 21 (21-32) mmol/L Anion Gap 9.0 (3-11) BUN 14 (7-18) mg/dl Creatinine 0.53 L (0.6-1.2) mg/dl Est Cr Clr Drug Dosing Not Reportable Est GFR ( Amer) 120.5 Est GFR (Non-Af Amer) 103.9 BUN/Creatinine Ratio 27.0 H (10-20) Glucose 120 H (70-99) mg/dl Lactate (0.4-2.0) mmol/L Calcium 7.8 L (8.5-10.1) mg/dl Total Bilirubin 1.0 (0.2-1) mg/dl AST 204 H (15-37) U/L ALT 81 H (12-78) U/L Alkaline Phosphatase 93 (45-117) U/L C-Reactive Protein 15.50 H (0-0.29) mg/dl Total Protein 6.0 L (6.4-8.2) gm/dl Albumin 2.6 L (3.4-5.0) gm/dl Globulin 3.4 (2.5-4.0) gm/dl Albumin/Globulin Ratio 0.8 L (0.9-2) Ethyl Alcohol mg/dL (0-3) mg/dl Code Status & VTE Plan Code Status Full VTE Prophylaxis Plan VTE Prophylaxis will be ordered: Yes Supervising Physician Co-Signing Physician Notes Attending addendum: I have physically seen this patient, have supervised the medical residents activities, and agree with the H&P unless as otherwise noted. Assessment and Plan: Sepsis/bilateral frostbite of feet-- Admit to monitored bed overnight. Received 2200 mL's at [facility] before transfer. Continue on IV fluids. Receive Zosyn IV at [facility]. Continue Zosyn IV, and add vancomycin IV. Order blood cultures. Placed on waffle boots. Consult wound care. Consult Dr. Infante from [facility], who saw patient last year at this time. Remainder of orders and notations as noted. Resident Activity Tracking Resident Involvement: Resident Care Provided Care Provided: Adult Hospital Medicine
[2018-03-16] MEDS ORDERED: VANCOMYCIN HCL 1,250 MG in SODIUM CHLORIDE 0.9% 250 ML IV SCH (00:30)
[2018-03-16] MEDS ORDERED: PATIENT'S HEIGHT AND/OR WEIGHT NEEDED SCH (00:30)
[2018-03-16 00:44] LABS: Hematocrit (blood only) 30.8 % (37-47); Hemoglobin 10.4 g/dL (12.0-16.0); Mean Corpuscular Hgb Conc 33.8 g/dL (32-36); Mean Corpuscular Volume 90.1 fL (80-100); Mean Platelet Volume 9.7 fL (7.4-10.4); Platelet Count 213 K/uL (130-400); RDW Coefficient of Variation 13.3 % (11.5-14.5); RDW Standard Deviation 43.9 fL (36.4-46.3); Red Blood Count 3.42 M/uL (4.2-5.4); White Blood Count 15.24 K/uL (4.8-10.8)
[2018-03-16 00:54] LABS: INR 1.1 (0.9-1.1); Prothrombin Time 11.4 Seconds (9.0-12.0)
[2018-03-16 01:03] LABS: Alanine Aminotransferase 81 U/L (12-78); Albumin Level 2.6 gm/dl (3.4-5.0); Aspartate Aminotransferase 204 U/L (15-37); Blood Urea Nitrogen 14 mg/dl (7-18); Calcium 7.8 mg/dl (8.5-10.1); Carbon Dioxide 21 mmol/L (21-32); Chloride 106 mmol/L (98-107); Est GFR (African American) 120.5; Est GFR (Non-African American) 103.9; Glucose 120 mg/dl (70-99); Potassium 3.6 mmol/L (3.5-5.1); Sodium 136 mmol/L (136-145)
[2018-03-16 01:06] LABS: Albumin Globulin Ratio 0.8 (0.9-2); Alkaline Phosphatase 93 U/L (45-117); Globulin 3.4 gm/dl (2.5-4.0)
[2018-03-16 01:15] LABS: Basophils # (auto) 0.02 K/uL (0-0.2); Basophils % (auto) 0.1 %; Eosinophils # (auto) 0.04 K/uL (0-0.5); Eosinophils % (auto) 0.3 %; Immature Granulocytes # (auto) 0.05 K/uL (0.00-0.02); Immature Granulocytes % (auto) 0.3 %; Lymphocytes # (auto) 1.58 K/uL (1.2-3.4); Lymphocytes % (auto) 10.4 %; Monocytes # (auto) 1.33 K/uL (0.11-0.59); Monocytes % (auto) 8.7 %; Neutrophils # (auto) 12.22 K/uL (1.4-6.5); Neutrophils % (auto) 80.2 %; RBC Morphology Unremarkable
[2018-03-16] MEDS: HYDROmorphone INJ 2 MG/ML SYR/VIAL IV PRN (01:41)
[2018-03-16] MEDS: SODIUM CHLORIDE 0.9% 1000ML 1,000 ML IV SCH ×2 (01:42→15:38)
[2018-03-16] MEDS: PIPERACILLIN/TAZOBACTAM 3.375 GM in DEXTROSE 5% 100 ML IV SCH ×3 (05:22→22:59)
--- NOTE | 2018-03-16 07:45 | Hospitalist Progress Note ---
Date of Service March 16, 2018 Assessment & Plan (1) Sepsis: 58-year-old female who presents with frostbite of bilateral feet. Has history of frostbite of bilateral feet as of one year ago. Lives in unheated trailer. Previously thought to perhaps have vascular compromise due to some autoimmune issue or raynauds, although JOANA and cryoglobulin were both negative as well as hepatitis C. Sent home on amlodipine, has not followed up with primary care. -frostbite with resultant sepsis (tachycardia, WBC 19 at outside hospital) -given fluid boluses 2200ml at outside hospital, zosyn / vancomycin -lactic acid <2.0 at outside hospital sepsis criteria resolved, pt is hemodynamically stable -consult Orthopedics, Dr. Infante she has been seen by him in the past -wound care consult -Vanc and Zosyn -pain control with tylenol, dilaudid prn -blood cultures pending here -pending MRI imaging to assess for subcut air in left foot, fractures/ osteomyelitis. Difficult social situation -This is a second time patient has presented medical problems secondary to exposure to the elements -Discharge planning Transaminitis -AST/ALT 204/81 may be consistent with excessive alcohol intake although blood alcohol level normal here. -Elevated AST also consistent with necrosis and inflammation of skeletal muscle DVT ppx: lovenox q24h CODE STATUS: FULL as confirmed with pt. Poor dentition -May benefit from referral to [facility] dentistry although transport may be an issue. (2) Frostbite of both feet: (3) Alcohol abuse: (4) DVT prophylaxis: Subjective Pt is in actually no distress, has significant tissue damange to feet B/L that appears to be frostbite, she may eventually need some tissue removed. She claims no distress or significant pain at present. Review of Systems ROS: Patient is in no distress No double vision blurry vision No problems with speech or swallowing No palpitations, chest pain or pressure No Wheezing or breathing issues No abdominal pain nausea vomiting diarrhea changes in appetite or weight No burning urine urine frequency or changes in color No focal joint pain or muscle pain Significant changes to her feet bilaterally with some blistering and discoloration of skin No focused back pain or numbness or loss of strength No changes in memory or confusion Physical Exam 2 Vital Signs (Past 24 Hours): Last Vital Signs Temp 37.8 C H 03/16/18 00:21 Pulse 120 H 03/16/18 00:21 Resp 20 03/16/18 00:21 BP 119/64 03/16/18 00:21 Pulse Ox 97 03/16/18 00:21 The patient appeared ill kept Vital signs as documented. Head exam is unremarkable. normocephalic, atraumatic, very poor dentition Neck is without jugular venous distension, thyromegaly, or lymphademopathy Lungs are clear to auscultation and percussion. Cardiac exam reveals Rhythm is regular. First and second heart sounds normal. Abdominal exam reveals normal bowel sounds, no masses, no organomegaly Extremities are with bilateral demarcated gangrene or tissue injury consistent with frostbite patient has decreased pulses with a left pulse being stronger than the right both were available by Doppler Neurologic exam is A&Ox3, no focal deficits Psychologically seems neither anxious or depressed Skin is warm Dry without bruises or lesions
[2018-03-16] MEDS ORDERED: INFLUENZA ADMINISTRATION CHARGE ONE (08:15)
[2018-03-16] MEDS ORDERED: INFLUENZA VIRUS QUAD VACCINE 0.5 ML SYR IM ONE (08:15)
[2018-03-16] MEDS: ENOXAPARIN INJ 40 MG/0.4 ML SYR SQ SCH (08:50)
--- NOTE | 2018-03-16 10:04 | Wound Consultation ---
Date of Consultation March 16, 2018 Assessment & Plan (1) Frostbite of both feet: Frostbite of bilateral feet. No debridement required today. Recommend supportive management for now. Will weave kaltostat between the toes for moisture. Awaiting recommendations from orthopedics. Consider MRI of the bilateral feet and arterial Doppler studies. Thanks for the consult. Will follow as needed. The patient was seen today, and note dictated by Destiny CASAS. History of Present Illness Reason for Consultation: Frostbite of bilateral feet Attending Physician: Checo Malave MD History of Present Illness 58-year-old female presents to [facility] [address] with complaints of bilateral foot pain and blistering that started 2 days ago. Suspected frostbite. Orthopedics has been consulted. She reports she lives in a trailer with minimal heat and no insulation. Patient is a slightly poor historian. She has a history of frostbite in the past requiring surgical debridement last year. She also has a history of bilateral great toe amputation in 2013. She is not a diabetic. She does smoke 1-3 cigarettes/day. Allergies Allergy/AdvReac Type Severity Reaction Status Date / Time No Known Allergies Allergy Unverified 02/20/17 03:53 Home Medications Home Medications Medication Instructions Recorded Confirmed Type Amlodipine Besylate 2.5 mg PO QAM 30 Days #15 tab 02/26/17 Rx Cephalexin Monohydrate (Cephalexin) 500 mg PO TID 7 Days #21 cap 02/26/17 Rx Patient History Medical History Amputated great toe of left foot Amputated great toe of right foot Osteomyelitis Wound infection Surgical History Hx of appendectomy Hx of cholecystectomy Hx of tonsillectomy Social History Current Living Situation: Alone Feels Safe at Home: Yes Smoking Status: Current every day smoker Tobacco Type: cigarettes Cigarettes per Day: 1-3 Do You Dip or Chew Tobacco: No Second Hand Exposure: No Tobacco Cessation Education Requested by Patient: No Hx Alcohol Use: Yes Alcohol Intake Frequency: a few times a week Beliefs That Will Affect Care: None Preferred Language: Vietnamese Ironworker Required: No Review of Systems Constitutional: no fever and no chills Eyes: no worsening vision Ear, Nose, Mouth, Throat: no ear pain Respiratory: no dyspnea Cardiovascular: no chest pain Gastrointestinal: no nausea and no vomiting Musculoskeletal: + problem reported (bilateral foot pain ) Neurologic: no dizziness Psychiatric: no substance abuse Endocrine: no fatigue Hematologic / Lymphatic: no problem reported Physical Exam 2 Vital Signs (Past 24 Hours): Last Vital Signs Temp 37.8 C H 03/16/18 00:21 Pulse 120 H 03/16/18 00:21 Resp 20 03/16/18 00:21 BP 119/64 03/16/18 00:21 Pulse Ox 97 03/16/18 00:21 Physical Exam: Bilateral foot edema noted. Pedal pulses palpable on the right. Pulses present with Doppler on the left. Toes of the left foot are cold. She has discoloration and blackened toes and feet noted bilaterally. Unopened blistering is noted of the dorsal right foot and medial left foot. Constitutional: average body habitus; no acute distress Eyes: no nystagmus ENMT: poor dentition Neck: normal visual inspection Respiratory: normal respiratory effort, lungs clear to auscultation Cardiovascular: RRR, no murmur, no edema Gastrointestinal (Abdomen): Inspection/Auscultation: normal bowel sounds Percussion/Palpation: abdomen soft; abdomen nontender Psychiatric: A+Ox3, euthymic affect _ (1) Frostbite of both feet Encounter type: initial encounter Qualified Code(s): T33.821A - Superficial frostbite of right foot, initial encounter; T33.822A - Superficial frostbite of left foot, initial encounter
--- NOTE | 2018-03-16 11:49 | Consultation Report ---
DATE OF CONSULTATION: 03/16/2018 HISTORY OF PRESENT ILLNESS: The patient is a 58-year-old white female who presents for a second time with an exposure frostbite injury to her bilateral feet. She previously had great toe amputations by Dr. Infante in the past. She presents with a frostbite injury involving her lesser toes on both feet involving the dorsum approximately a third of the way upper mid foot and into the plantar space of the left greater than right foot. The great toes have been previously amputated. She does have a questionable history of autoimmune disorder, but apparently had a negative JOANA testing. No x-rays or other imaging studies have been done. Would recommend getting a baseline x-ray and MRI scan to rule out any type of abscess in the plantar space and I will discuss the case with Dr. Infante for further definitive management. We will follow with you.
[2018-03-16] MEDS: VANCOMYCIN HCL 750 MG in SODIUM CHLORIDE 0.9% 250 ML IV SCH ×2 (12:13→23:00)
--- NOTE | 2018-03-16 12:20 | Pharmacy Report ---
Pharmacy Abx Dose Short Note - Date of Service March 16, 2018 - Assessment & Plan Assessment * 58 year old F receiving VANCOMYCIN + ZOSYN for treatment of sepsis in the setting of frostbite to both feet * No apparent AMADA noted on labs * WBC elevated, tachycardia noted, BP stable * She does have a h/o osteomyelitis in the past and prior h/o frostbite as well * Blood cx's are pending Plan Vancomycin * Loading dose given in the ER (1250mg x 1, ~23mg/kg) * Maint dose: 750mg (~13.7mg/kg) IV Q 10 hrs * Goal trough level for sepsis : 15 to 20 mcg/mL * Trough level ordered w/ 3rd maint dose due to uncertainty with calculating clearance * P'kinetic estimates: Vd 0.7L/kg, half-life ~8-9 hours Zosyn * BMI < 35, eCrCl > 20 * Zosyn 4.5gm load followed by 3.375gm ext-infusion IV Q 8 hours Pharmacy will continue to follow and will adjust dose/frequency as necessary. Thank you.
--- NOTE | 2018-03-16 13:12 | XRay Report ---
XR foot RT min 3V routine HISTORY: 58 years-old Female r/o osteo chronic pain and swelling of the right forefoot COMPARISON: Right foot radiographs 02/20/2017 TECHNIQUE: 3 views of the right foot FINDINGS: Moderate soft tissue swelling about the right forefoot. Degenerative changes of the tibiotalar joint with spurring of the calcaneus. Postoperative changes from prior amputation about the second digit at the level of the PIP joint. Additionally, prior amputation of the first digit at the level of the pr oximal metaphyseal portion first proximal phalanx. Moderate soft tissue swelling with deep tissue air noted about the distal aspect of the first and second digits. The cortices of both amputation sites appears mildly irregular, however not significantly changed from 12/21/2017. IMPRESSION: 1. Postoperative changes about the first and second toes as above. The cortices at the amputation sit es again appear mildly irregular, not significantly changed from 02/20/2017. No definite evidence of a cute osteomyelitis. 2. Moderate adjacent soft tissue swelling with deep tissue air. The above report was generated using voice recognition software. It may contain grammatical, syntax o r spelling errors. Electronically signed by: Garret Alvarado M.D. 03/16/2018 1:11 PM
--- NOTE | 2018-03-16 13:16 | XRay Report ---
XR foot LT min 3V routine CLINICAL HISTORY: Bilateral foot pain and swelling. Evaluate for osteomyelitis. COMPARISON: Left foot radiographs February 20, 2017. FINDINGS: Note is made of postoperative findings consistent with amputation of the first digit at th e level of the metatarsophalangeal joint. Evaluation of the toes is difficult given hammertoe deformi ties. However, there is sclerosis and cortical irregularity of a proximal phalanx. This most likely r epresents the third proximal phalanx. No additional suspicious findings are noted. Tarsometatarsal kandi ints are aligned. There is mild plantar calcaneal spurring. IMPRESSION: 1. Sclerosis and cortical irregularity of the head of a proximal phalanx within the left foot, most l ikely the third proximal phalanx. This is suspicious for osteomyelitis. 2. Status post left first digit amputation at the level of the metatarsophalangeal joint. Electronically signed by: Jonathon Damon M.D. 03/16/2018 1:14 PM
[2018-03-16 19:49] LABS: Amphetamines+Metham, Urine Neg (Neg); Barbiturates, Urine Neg (Neg); Benzodiazepine, Urine Neg (Neg); Cocaine, Urine Neg (Neg); MDMA (Ecstacy), Urine Neg (Neg); Methadone, Urine Neg (Neg); Opiate, Urine Neg (Neg); Phencyclidine, Urine Neg (Neg)
--- NOTE | 2018-03-16 20:17 | Ultrasound Report ---
US arterial duplex LE BI CLINICAL HISTORY: eval for viable blood flow pain COMPARISON STUDY: 02/22/2017 FINDINGS: Limited study as patient refused blood pressure evaluation. Velocity characteristics are in general unremarkable. There is slight increase in general velocity characteristics. Waveforms are pr imarily biphasic throughout. IMPRESSION: 1. Limited study as the patient declined blood pressure evaluation. 2. No evidence for significant stenotic process. The above report was generated using voice recognition software. It may contain grammatical, syntax or spelling errors. Electronically signed by: Florin Sparks M.D. 03/16/2018 8:16 PM
[2018-03-16] MEDS ORDERED: GADOBUTROL 65ML VIAL IV PRN (22:23)
[2018-03-16] MEDS: ACETAMINOPHEN 325 MG TAB PO PRN (23:35)
[2018-03-17] MEDS ORDERED: IBUPROFEN 600 MG TAB PO STA (00:41)
[2018-03-17] MEDS ORDERED: ACETAMINOPHEN 1,000 MG/100 ML VIAL IV ONE (02:06)
[2018-03-17] MEDS: PIPERACILLIN/TAZOBACTAM 3.375 GM in DEXTROSE 5% 100 ML IV SCH ×3 (06:19→21:24)
[2018-03-17] MEDS ORDERED: VANCOMYCIN TROUGH ONE (07:30)
--- NOTE | 2018-03-17 07:59 | Magnetic Resonance Report ---
MR foot LT wo/w con CLINICAL HISTORY: 58 years-old Female presenting with abscess is on both feet, clinical concern for o steomyelitis, no history of diabetes, possible frostbite, history of 2 limitations in 2014, swelling and severe pain. TECHNIQUE: Multisequence, multiplanar MR imaging of the left foot was performed before and after the administration of intravenous contrast. IV contrast: 5 mL of Gadavist. COMPARISON: Plain radiographs performed earlier the same day. FINDINGS: Localizer images: Unremarkable. Post surgical changes of first toe amputation. Dislocation of the proximal phalanx of the third toe a t the proximal interphalangeal joint with dorsal dislocation. T1 hypointensity without T2 hyperintens ity of the mid to distal aspect of the proximal phalanx of the third toe. There is a pointed deformit y of the distal metaphysis and head of the proximal phalanx. Extensive subcutaneous edema most severe over the dorsum of the foot. Several large blisters are evid ent primarily in the proximal foot. Postcontrast imaging demonstrates diffuse hypoenhancement of the skin, subcutaneous fat, and muscle involving the entire midfoot to forefoot. Diffuse muscle edema. No T2 hyperintense bone marrow signal abnormality. Moderate ankle joint effusion. IMPRESSION: 1. Lack of enhancement of the skin, subcutaneous tissue, and muscle of newly the entire foot concern ing for necrosis, potentially from frostbite. 2. Chronic dorsal luxation, deformity, and sclerosis of the distal metaphysis and head of the proxim al phalanx of the third toe, which correlates with the finding on radiograph. 3. No evidence of osteomyelitis. 4. Moderate ankle joint effusion. 5. Extensive skin blisters and subcutaneous edema The report will be called/faxed according to standard departmental protocol.. Electronically signed by: Chandana Eden M.D. 03/17/2018 7:58 AM
--- NOTE | 2018-03-17 08:01 | Magnetic Resonance Report ---
MRI OF THE RIGHT FOOT WITH AND WITHOUT CONTRAST CLINICAL HISTORY: Diabetes. Foot pain and swelling with wounds. Evaluate for osteomyelitis. COMPARISON STUDY: Right radiographs March 16, 2018. TECHNIQUE: Utilizing 1.5 Mary magnet, multiplanar, multi echo imaging of the right foot was performe d pre and postcontrast interstitial. Intravenous injection of 5 cc of Gadavist IV was uneventful. FINDINGS: Note is made of postoperative findings consistent with amputation of the first and second d igits at the level of the distal aspects of the proximal phalanges. There is decreased T2 signal with in the remaining portion of the proximal phalanx of the right second toe without marrow edema. Theref ore, this is probably chronic. There is no marrow edema to suggest osteomyelitis within the right clint t. There is diffuse enhancement and increased T2 signal within the musculature of the right foot, par ticularly affects flexor musculature. There is no fluid collection to suggest abscess. Several T2 hyp erintense foci along the skin of the dorsal aspect of the right midfoot and forefoot measure up to 3. 4 cm. These suggest blisters. Deep to these blisters, there is diminished enhancement of the subcutan eous tissues and possible decrease in enhancement of the dorsal aspect of the extensor musculature. T his raises the possibility of tissue necrosis. IMPRESSION: 1. No evidence for osteomyelitis within the right foot. Amputations of the right first and second dig its, as described above. 2. Several blisters of the right midfoot and forefoot with diminished enhancement of the underlying s ubcutaneous tissues and possibly a portion of the extensor musculature which raises the possibility o f tissue necrosis. 3. Diffuse muscular edema and enhancement which suggests a nonspecific myositis. Electronically signed by: Jonathon Damon M.D. 03/17/2018 7:59 AM
[2018-03-17 08:09] LABS: Creatinine Clr Calc Pharmacy 96.7 ml/min; Est GFR (African American) 119.7; Est GFR (Non-African American) 103.3
[2018-03-17] MEDS: SODIUM CHLORIDE 0.9% 1000ML 1,000 ML IV SCH ×2 (08:22→14:09)
[2018-03-17] MEDS: VANCOMYCIN HCL 750 MG in SODIUM CHLORIDE 0.9% 250 ML IV SCH ×2 (08:27→18:59)
[2018-03-17 08:35] LABS: BUN Creatinine Ratio 20.6 (10-20); Calcium 8.1 mg/dl (8.5-10.1); Creatinine Clr Calc Pharmacy 94.9 ml/min; Est GFR (Non-African American) 102.7; Potassium 3.1 mmol/L (3.5-5.1)
[2018-03-17] MEDS: ENOXAPARIN INJ 40 MG/0.4 ML SYR SQ SCH (09:46)
--- NOTE | 2018-03-17 14:33 | Consultation ---
Date of Consultation March 17, 2018 Assessment & Plan (1) Frostbite of both feet: Both feet of this patient has suffered significant frostbite. There is color changes in the forefoot to the toes include include all the remaining toes. There is blistering present in both feet. Her arterial noninvasives show normal flow down through the ankles. At this point being that she has good flow to her feet to the proximal. There is no vascular intervention required. I would let the wound care team and orthopedics treat her frostbitten feet. Thank you very much for letting us participate in the care of this patient. Encounter type: initial encounter Qualified Code(s): T33.821A - Superficial frostbite of right foot, initial encounter; T33.822A - Superficial frostbite of left foot, initial encounter Present on Admission?: Yes History of Present Illness Reason for Consultation: Frostbite both lower extremities Attending Physician: Checo Malave MD History of Present Illness This is a 58-year-old female who was admitted last February frostbite to both lower extremities and underwent debridement and toe amputations of both feet. She was treated by orthopedics and Dr. Infante in the past. She presents again this year with frostbite to her feet. She claims they have been discolored for a week but is a very poor historian. She claims that she could feel her feet and does have occasional pain in them. Allergies Allergy/AdvReac Type Severity Reaction Status Date / Time No Known Allergies Allergy Unverified 02/20/17 03:53 Home Medications Home Medications Medication Instructions Recorded Confirmed Type Amlodipine Besylate 2.5 mg PO QAM 30 Days #15 tab 02/26/17 Rx Cephalexin Monohydrate (Cephalexin) 500 mg PO TID 7 Days #21 cap 02/26/17 Rx Patient History Medical History Amputated great toe of left foot Amputated great toe of right foot Osteomyelitis Wound infection Surgical History Hx of appendectomy Hx of cholecystectomy Hx of tonsillectomy Social History Current Living Situation: Alone Feels Safe at Home: Yes Smoking Status: Current every day smoker Tobacco Type: cigarettes Cigarettes per Day: 1-3 Do You Dip or Chew Tobacco: No Second Hand Exposure: No Tobacco Cessation Education Requested by Patient: No Hx Alcohol Use: Yes Alcohol Intake Frequency: a few times a week Beliefs That Will Affect Care: None Communication Ability: Effective Physical Exam 2 Vital Signs (Past 24 Hours): Last Vital Signs Temp 36.2 C L 03/17/18 11:13 Pulse 94 H 03/17/18 11:13 Resp 16 03/17/18 11:13 BP 112/66 03/17/18 11:13 Pulse Ox 99 03/17/18 11:13 Constitutional: + underweight; no acute distress Respiratory: normal respiratory effort; no respiratory distress Cardiovascular: Rate/Rhythm: regular rate and regular rhythm Vessels: normal peripheral pulses (Except for decreased left dorsalis pedis pulse) Extremities: + pedal edema (Bilateral) Gastrointestinal (Abdomen): Inspection/Auscultation: abdomen normal to inspection; abdomen not distended Percussion/Palpation: abdomen soft; abdomen nontender Skin: + mottling (Bilateral discolorations of the forefoot and toes with blistering present on both feet.) Neurologic: CN's II-XI intact bilaterally, moves all extremities and awake She does have sensation in both feet. Psychiatric: Orientation: alert and oriented x 3
[2018-03-17] MEDS: ACETAMINOPHEN 325 MG TAB PO PRN (15:33)
--- NOTE | 2018-03-17 15:53 | Orthopedic Progress Note ---
Date of Service March 17, 2018 Assessment & Plan (1) Frostbite of both feet: MRI results reviewed with Dr. De La Cruz.I discussed the case with Dr. Malave as well. Dr Infante from [facility] is not available at this time.Patient will need extensive debridement for both feet and possibility of Transmetatarsal amputation Or BKAIn the future. Patient is currently stable and plans are to allow demarcation. She would likely best be treated at a tertiary facility for this. The patient has some social service issues that the office of aging has now been contacted. This may make transfer difficult. We will continue to follow. Subjective Patient is currently lying in bed. She is sitting up watching TV. She has no overt complaints at this time. She asked about her ultrasound concerning her arterial blood flow. We discussed the results with her. Dr. Higuera has already been in to see her and examined her as well. Physical Exam 2 Vital Signs (Past 24 Hours): Last Vital Signs Temp 38.7 C H 03/17/18 15:32 Pulse 105 H 03/17/18 15:14 Resp 16 03/17/18 15:14 BP 129/72 03/17/18 15:14 Pulse Ox 96 03/17/18 15:14 Physical Exam: Feet remain consistent with frostbite injury left greater than right. Blistering noted on the right foot compared to the left. All of her remaining toes have a darkened erythema. Pulses marked were palpable. Results & Data Diagnostic Findings MRI OF THE RIGHT FOOT WITH AND WITHOUT CONTRAST CLINICAL HISTORY: Diabetes. Foot pain and swelling with wounds. Evaluate for osteomyelitis. COMPARISON STUDY: Right radiographs March 16, 2018. TECHNIQUE: Utilizing 1.5 Mary magnet, multiplanar, multi echo imaging of the right foot was performed pre and postcontrast interstitial. Intravenous injection of 5 cc of Gadavist IV was uneventful. FINDINGS: Note is made of postoperative findings consistent with amputation of the first and second digits at the level of the distal aspects of the proximal phalanges. There is decreased T2 signal within the remaining portion of the proximal phalanx of the right second toe without marrow edema. Therefore, this is probably chronic. There is no marrow edema to suggest osteomyelitis within the right foot. There is diffuse enhancement and increased T2 signal within the musculature of the right foot, particularly affects flexor musculature. There is no fluid collection to suggest abscess. Several T2 hyperintense foci along the skin of the dorsal aspect of the right midfoot and forefoot measure up to 3.4 cm. These suggest blisters. Deep to these blisters, there is diminished enhancement of the subcutaneous tissues and possible decrease in enhancement of the dorsal aspect of the extensor musculature. This raises the possibility of tissue necrosis. IMPRESSION: 1. No evidence for osteomyelitis within the right foot. Amputations of the right first and second digits, as described above. 2. Several blisters of the right midfoot and forefoot with diminished enhancement of the underlying subcutaneous tissues and possibly a portion of the extensor musculature which raises the possibility of tissue necrosis. 3. Diffuse muscular edema and enhancement which suggests a nonspecific myositis. MR foot LT wo/w con CLINICAL HISTORY: 58 years-old Female presenting with abscess is on both feet, clinical concern for osteomyelitis, no history of diabetes, possible frostbite, history of 2 limitations in 2013, swelling and severe pain. TECHNIQUE: Multisequence, multiplanar MR imaging of the left foot was performed before and after the administration of intravenous contrast. IV contrast: 5 mL of Gadavist. COMPARISON: Plain radiographs performed earlier the same day. FINDINGS: Localizer images: Unremarkable. Post surgical changes of first toe amputation. Dislocation of the proximal phalanx of the third toe at the proximal interphalangeal joint with dorsal dislocation. T1 hypointensity without T2 hyperintensity of the mid to distal aspect of the proximal phalanx of the third toe. There is a pointed deformity of the distal metaphysis and head of the proximal phalanx. Extensive subcutaneous edema most severe over the dorsum of the foot. Several large blisters are evident primarily in the proximal foot. Postcontrast imaging demonstrates diffuse hypoenhancement of the skin, subcutaneous fat, and muscle involving the entire midfoot to forefoot. Diffuse muscle edema. No T2 hyperintense bone marrow signal abnormality. Moderate ankle joint effusion. IMPRESSION: 1. Lack of enhancement of the skin, subcutaneous tissue, and muscle of newly the entire foot concerning for necrosis, potentially from frostbite. 2. Chronic dorsal luxation, deformity, and sclerosis of the distal metaphysis and head of the proximal phalanx of the third toe, which correlates with the finding on radiograph. 3. No evidence of osteomyelitis. 4. Moderate ankle joint effusion. 5. Extensive skin blisters and subcutaneous edema The report will be called/faxed according to standard departmental protocol.. Laboratory Results WBC 15.24 K/uL (4.8-10.8) H 03/16/18 00:28 RBC 3.42 M/uL (4.2-5.4) L 03/16/18 00: Hgb 10.4 g/dL (12.0-16.0) L 03/16/18 00: Hct 30.8 % (37-47) L 03/16/18: MCV 90.1 fL (80-100) 03/16/18: MCH 30.4 pg (25-34) 03/16/18: MCHC 33.8 g/dL (32-36) 03/16/18: RDW Std Deviation 43.9 fL (36.4-46.3) 03/16/18: RDW Coeff of Darline 13.3 % (11.5-14.5) 03/16/18: Plt Count 213 K/uL (130-400) 03/16/18: MPV 9.7 fL (7.4-10.4) 03/16/18 00:28 Immature Gran % (Auto) 0.3 % 03/16/18 00:28 Neut % (Auto) 80.2 % 03/16/18 00: Lymph % (Auto) 10.4 % 03/16/18 00:28 [place] % (Auto) 8.7 % 03/16/18 00:28 Eos % (Auto) 0.3 % 03/16/18 00: Baso % (Auto) 0.1 % 03/16/18 00: Immature Gran # (Auto) 0.05 K/uL (0.00-0.02) H 03/16/18 00:28 Neut # (Auto) 12.22 K/uL (1.4-6.5) H 03/16/18 00:28 Lymph # (Auto) 1.58 K/uL (1.2-3.4) 03/16/18 00:28 [place] # (Auto) 1.33 K/uL (0.11-0.59) H 03/16/18 00:28 Eos # (Auto) 0.04 K/uL (0-0.5) 03/16/18 00:28 Baso # (Auto) 0.02 K/uL (0-0.2) 03/16/18 00:28 RBC Morphology Unremarkable 03/16/18 00:28 PT 11.4 Seconds (9.0-12.0) 03/16/18 00:28 INR 1.1 (0.9-1.1) 03/16/18 00:28 Sodium 137 mmol/L (136-145) 03/17/18 07:25 Potassium 3.1 mmol/L (3.5-5.1) L 03/17/18 07:25 Chloride 106 mmol/L (98-107) 03/17/18 07:25 Carbon Dioxide 23 mmol/L (21-32) 03/17/18 07:25 Anion Gap 8.0 (3-11) 03/17/18 07:25 BUN 11 mg/dl (7-18) 03/17/18 07:25 Creatinine 0.55 mg/dl (0.6-1.2) L 03/17/18 07:25 Est Cr Clr Drug Dosing 94.9 ml/min 03/17/18 07:25 Est GFR ( Amer) 119.0 03/17/18 07:25 Est GFR (Non-Af Amer) 102.7 03/17/18 07:25 BUN/Creatinine Ratio 20.6 (10-20) H 03/17/18 07:25 Glucose 112 mg/dl (70-99) H 03/17/18 07:25 Lactate 0.7 mmol/L (0.4-2.0) 03/16/18 00:28 Calcium 8.1 mg/dl (8.5-10.1) L 03/17/18 07:25 Total Bilirubin 1.0 mg/dl (0.2-1) 03/16/18 00:28 AST 204 U/L (15-37) H 03/16/18 00:28 ALT 81 U/L (12-78) H 03/16/18 00:28 Alkaline Phosphatase 93 U/L (45-117) 03/16/18 00:28 C-Reactive Protein 15.50 mg/dl (0-0.29) H 03/16/18 00:28 Total Protein 6.0 gm/dl (6.4-8.2) L 03/16/18 00:28 Albumin 2.6 gm/dl (3.4-5.0) L 03/16/18 00:28 Globulin 3.4 gm/dl (2.5-4.0) 03/16/18 00:28 Albumin/Globulin Ratio 0.8 (0.9-2) L 03/16/18 00:28 Nasal Screen MRSA (PCR) Negative (Negative) 03/15/18 23:40 Vancomycin Trough 7.2 mcg/ml (See Comment) 03/17/18 07:21 Urine Opiates Screen Neg (Neg) 03/16/18 18:58 Ur Methadone, Qual Neg (Neg) 03/16/18 18:58 Urine Barbiturates Neg (Neg) 03/16/18 18:58 Ur Phencyclidine (PCP) Neg (Neg) 03/16/18 18:58 U Amphetamin/Meth Scrn Neg (Neg) 03/16/18 18:58 MDMA (Ecstasy) Screen Neg (Neg) 03/16/18 18:58 U Benzodiazepines Scrn Neg (Neg) 03/16/18 18:58 Ur Cocaine Metabolite Neg (Neg) 03/16/18 18:58 U Marijuana (THC) Screen Neg (Neg) 03/16/18 18:58 Ethyl Alcohol mg/dL < 3.0 mg/dl (0-3) 03/16/18 00:28 Hepatitis C Ab Screen Neg (Neg) 03/16/18 00:39 Bld Cult Staph aureus PCR Negative (Negative) 03/16/18 00:39 Blood Culture MRSA PCR Negative (Negative) 03/16/18 00:39 _ (1) Frostbite of both feet Encounter type: initial encounter Qualified Code(s): T33.821A - Superficial frostbite of right foot, initial encounter; T33.822A - Superficial frostbite of left foot, initial encounter
--- NOTE | 2018-03-17 16:21 | Hospitalist Progress Note ---
Date of Service March 17, 2018 Assessment & Plan (1) Sepsis: 58-year-old female who presents with frostbite of bilateral feet. Has history of frostbite of bilateral feet as of one year ago. Lives in unheated trailer. Previously thought to perhaps have vascular compromise due to some autoimmune issue or raynauds, although JOANA and cryoglobulin were both negative as well as hepatitis C. Has not followed up with primary care. -frostbite with concern for sepsis (tachycardia, WBC 19 at outside hospital) resolved, sepsis is no longer present -Vanc and Zosyn -pain control with tylenol, dilaudid prn -blood cultures pending here - MRI imaging suggests tissue to entire left foot and front parts of right foot Difficult social situation -This is a second time patient has presented medical problems secondary to exposure to the elements -Discharge planning Poor dentition -May benefit from referral to [facility] dentistry although transport may be an issue. (2) Frostbite of both feet: Frostbite of bilateral feet progressing to gangrene b/l weave kaltostat between the toes Awaiting recommendations from orthopedics however will speak to pt about amputation but pt seems a bit resistent to the idea (3) DVT prophylaxis: lovenox for dvt prevention Subjective Patient's no complaints she appears to be in denial about the actual acuity of her lower leg problems. I did explain to her that it looks like she is got significant gangrene and will likely need amputation she says that she believes her legs will get better without surgery and just need antibiotics. The patient has had challenging choices in the past where she seems like she is neglected herself to sustained a frostbite injury. She is being seen by our orthopedic surgeons for discussion of amputation she may require a BKA on the left. There is no vascular compromise as a repeat arterial study was performed Review of Systems ROS: She is with some fatigue No double vision blurry vision No problems with speech or swallowing very poor dentition No palpitations, chest pain or pressure No Wheezing or breathing issues No abdominal pain nausea vomiting diarrhea changes in appetite or weight No burning urine urine frequency or changes in color No focal joint pain or muscle pain spite having fairly significant gangrene on bilateral feet Purple black changes to the skin of her feet left greater than right No focused back pain or numbness or loss of strength Physical Exam 2 Vital Signs (Past 24 Hours): Last Vital Signs Temp 38.7 C H 03/17/18 15:32 Pulse 105 H 03/17/18 15:14 Resp 16 03/17/18 15:14 BP 129/72 03/17/18 15:14 Pulse Ox 96 03/17/18 15:14 The patient appeared poorly With poor dentition she is thin Vital signs as documented. Head exam is unremarkable. normocephalic, atraumatic Neck is without jugular venous distension, thyromegaly, or lymphademopathy Lungs are clear to auscultation and percussion. Cardiac exam reveals Rhythm is regular. First and second heart sounds normal. Abdominal exam reveals normal bowel sounds, no masses, no organomegaly Extremities she has bilateral gangrene on both feet left is to the ankle right is to the mid metatarsal area these feet are amnestic there is no blanching or capillary refills Neurologic exam is A&Ox3, bilateral neuropathy, strength is equal bilateral Psychologically seems inappropriate regarding the severity of her condition _ (1) Frostbite of both feet Encounter type: initial encounter Qualified Code(s): T33.821A - Superficial frostbite of right foot, initial encounter; T33.822A - Superficial frostbite of left foot, initial encounter
[2018-03-18] MEDS: SODIUM CHLORIDE 0.9% 1000ML 1,000 ML IV SCH ×2 (02:07→13:41)
[2018-03-18] MEDS ORDERED: VANCOMYCIN TROUGH ONE (03:30)
[2018-03-18 03:48] LABS: Hematocrit (blood only) 26.5 % (37-47); Mean Corpuscular Volume 89.2 fL (80-100); Mean Platelet Volume 9.6 fL (7.4-10.4); Platelet Count 240 K/uL (130-400); RDW Coefficient of Variation 13.5 % (11.5-14.5); RDW Standard Deviation 44.3 fL (36.4-46.3); Red Blood Count 2.97 M/uL (4.2-5.4); White Blood Count 14.27 K/uL (4.8-10.8)
[2018-03-18] MEDS: VANCOMYCIN HCL 750 MG in SODIUM CHLORIDE 0.9% 250 ML IV SCH ×3 (03:49→19:43)
[2018-03-18 04:07] LABS: BUN Creatinine Ratio 22.3 (10-20); Calcium 7.8 mg/dl (8.5-10.1); Est GFR (African American) 127.1; Est GFR (Non-African American) 109.7; Potassium 3.3 mmol/L (3.5-5.1)
[2018-03-18] MEDS: PIPERACILLIN/TAZOBACTAM 3.375 GM in DEXTROSE 5% 100 ML IV SCH ×3 (06:23→22:10)
[2018-03-18] MEDS: ACETAMINOPHEN 325 MG TAB PO PRN ×2 (08:07→23:14)
[2018-03-18] MEDS: ENOXAPARIN INJ 40 MG/0.4 ML SYR SQ SCH (08:09)
--- NOTE | 2018-03-18 09:40 | Pharmacy Report ---
Pharmacy Abx Dose Short Note - Date of Service March 18, 2018 - Assessment & Plan A/P Trough at Css still subtherapeutic, 7.1mcg/mL. Will shorten dosing interval to help raise trough: q10--->q8. Next level for 03/19/18 @0330. Goal trough closer to 12-15mcg/mL for SST Pharmacy will continue to follow and will adjust dose/frequency as necessary. Thank you.
--- NOTE | 2018-03-18 15:19 | Hospitalist Progress Note ---
Date of Service March 18, 2018 Assessment & Plan (1) Sepsis: 58-year-old female who presents with frostbite of bilateral feet. Has history of frostbite of bilateral feet as of one year ago. Lives in unheated trailer. Previously thought to perhaps have vascular compromise due to some autoimmune issue or raynauds, although JOANA and cryoglobulin were both negative as well as hepatitis C. Has not followed up with primary care. -frostbite with concern for sepsis (tachycardia, WBC 19 at outside hospital) resolved, recurrence of fever is concerning given the patient's on vancomycin and Zosyn we will continue to follow culture results -Good pain control with tylenol, dilaudid prn -blood cultures - MRI imaging suggests tissue to entire left foot and front parts of right foot Given challenges in the patient being able to be consented for any procedure and also refusing procedure surgery has taken a step back and are recommending a conservative approach in this patient the timing of her fever now on antibiotics is brings concern to me that the patient may require an intervention more sooner than later. We are attempting to determine competency may be have a guardian appointed Difficult social situation -This is a second time patient has presented medical problems secondary to exposure to the elements -Discharge planning Poor dentition -May benefit from referral to [facility] dentistry although transport may be an issue. 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 I try to educate the patient on the seriousness of the matters of her bilateral gangrene and recurrent significant fever while on antibiotics posing a risk to her life. The patient seemed not to believe what I was telling her and did not continue to reinforce not having any interest in surgical correction of her gangrenous feet. We are going to try to determine competency and if the patient does refuse any surgical intervention its like believe that she will not be able to return home as she will not be able to ambulate. Currently denies having any significant pain she cannot move her toes in any way and they are starting to have lines of demarcation of gangrene on both feet left being significantly worse than the right Review of Systems ROS: No double vision blurry vision No problems with speech or swallowing No palpitations, chest pain or pressure No Wheezing or breathing issues No abdominal pain nausea vomiting diarrhea changes in appetite or weight No burning urine urine frequency or changes in color No focal joint pain or muscle pain Significant darkening of skin to her lower legs No unusual bruising or bleeding No focused back pain or numbness or loss of strength No changes in memory or confusion Physical Exam 2 Vital Signs (Past 24 Hours): Last Vital Signs Temp 36.9 C 03/18/18 14:51 Pulse 973 H 03/18/18 14:51 Resp 16 03/18/18 14:51 BP 101/58 L 03/18/18 14:51 Pulse Ox 98 03/18/18 14:51 The patient appeared much older than her stated age with poor dentition Vital signs as documented. Temperature 39 C while on antibiotics Head exam is unremarkable. normocephalic, atraumatic, poor dentition Neck is without jugular venous distension, thyromegaly, or lymphademopathy Lungs are clear to auscultation and percussion. Cardiac exam reveals Rhythm is regular. First and second heart sounds normal. Abdominal exam reveals normal bowel sounds, no masses, no organomegaly Extremities patient has significant gangrenous changes to both feet to the right it is to the mid metatarsal area to the left it is her whole foot to the lateral medial malleolus. There is no palpable pulse in the left foot in the dorsalis pedis or posterior tibialis on the right there is a faint palpable pulse in the dorsalis pedis Neurologic exam is A&Ox3, patient cannot feel either foot cannot move her feet has not been attempting to stand lately psychologically she is very anxious and in denial regarding her situation _ (1) Frostbite of both feet Encounter type: initial encounter Qualified Code(s): T33.821A - Superficial frostbite of right foot, initial encounter; T33.822A - Superficial frostbite of left foot, initial encounter
[2018-03-19] MEDS: SODIUM CHLORIDE 0.9% 1000ML 1,000 ML IV SCH ×2 (01:59→16:40)
[2018-03-19] MEDS ORDERED: VANCOMYCIN TROUGH ONE (03:30)
[2018-03-19 03:39] LABS: Hematocrit (blood only) 24.6 % (37-47); Hemoglobin 8.1 g/dL (12.0-16.0); Mean Corpuscular Hgb Conc 32.9 g/dL (32-36); Mean Corpuscular Volume 91.1 fL (80-100); Mean Platelet Volume 9.3 fL (7.4-10.4); Platelet Count 243 K/uL (130-400); RDW Coefficient of Variation 13.7 % (11.5-14.5); RDW Standard Deviation 45.9 fL (36.4-46.3)
[2018-03-19 03:56] LABS: BUN Creatinine Ratio 20.3 (10-20); Calcium 7.8 mg/dl (8.5-10.1); Creatinine Clr Calc Pharmacy 127.3 ml/min; Est GFR (African American) 131.1; Est GFR (Non-African American) 113.1; Potassium 3.2 mmol/L (3.5-5.1)
[2018-03-19] MEDS: VANCOMYCIN HCL 750 MG in SODIUM CHLORIDE 0.9% 250 ML IV SCH (04:32)
[2018-03-19] MEDS: PIPERACILLIN/TAZOBACTAM 3.375 GM in DEXTROSE 5% 100 ML IV SCH ×3 (06:07→21:26)
--- NOTE | 2018-03-19 08:44 | Pharmacy Report ---
Pharmacy Abx Dose Short Note - Date of Service March 19, 2018 - Assessment & Plan Laboratory Tests 03/19/18 03/19/18 03:30 03:30 Creatinine 0.41 L Est Cr Clr Drug Dosing 127.3 Vancomycin Trough 9.3 Assessment: 58 yo Female receiving VANC/Zosyn-IV for treatment of B/L foot frostbite/ sepsis. 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 Pertinent PMH: this is a 2nd event (from 1 year ago), pt declines surgical intervention. Pt continues to run a fever. Plan: Vanc-IV: * MAINTENANCE DOSE: VANC 750mg (~14mg/kg) IV q 8 hours. * Trough level of 9.3 mcg/mL trends upward but still not therapeutic. * Increase dose of VANC to 1000mg (~18mg/kg) IV every 8 hours * Goal trough level: 15 * VANC Trough level [facility] prior to 03/20[facility]18 1000 dose Zosyn-IV: Continue 3.375g IV CI q 8 hours for est GFR > 20MmL/min Pharmacy will continue to follow and will adjust dose/frequency as necessary. Thank you.
[2018-03-19] MEDS: ENOXAPARIN INJ 40 MG/0.4 ML SYR SQ SCH (08:55)
--- NOTE | 2018-03-19 08:57 | Orthopedic Progress Note ---
Date of Service March 19, 2018 Assessment & Plan (1) Frostbite of both feet: Dr Infante from Foot/[facility] is not available at this time.Patient will need extensive debridement for both feet and possibility of Transmetatarsal amputation Or BKA In the future. Patient is currently stable and plans are to allow demarcation. She would likely best be treated at a tertiary facility for this. The patient has some social service issues that the office of aging has now been contacted. This may make transfer difficult. Discussed in detail with medicine. We will sign off for now. Should ortho be needed in the future please re consult. Thank you. Subjective Patient is currently lying in bed. She is sitting up watching TV. She has no overt complaints at this time, she states she is in no pain, comfortable. Physical Exam 2 Vital Signs (Past 24 Hours): Last Vital Signs Temp 37.5 C 03/19/18 06:55 Pulse 94 H 03/19/18 06:55 Resp 16 03/19/18 06:55 BP 126/74 03/19/18 06:55 Pulse Ox 99 03/19/18 06:55 Physical Exam: Extensive gangrenous changes in both feet, unable to move or wiggle feet or toes. Pulses not detected. Patient A&Ox3, although doesnt appear to understand the severity of her diagnoses. _ (1) Frostbite of both feet Encounter type: initial encounter Qualified Code(s): T33.821A - Superficial frostbite of right foot, initial encounter; T33.822A - Superficial frostbite of left foot, initial encounter
[2018-03-19] MEDS: VANCOMYCIN HCL 1,000 MG in SODIUM CHLORIDE 0.9% 250 ML IV SCH ×2 (10:24→18:12)
--- NOTE | 2018-03-19 11:43 | Hospitalist Progress Note ---
Date of Service March 19, 2018 Assessment & Plan (1) Sepsis: 58-year-old female who presents with frostbite of bilateral feet. Has history of frostbite of bilateral feet as of one year ago. Lives in unheated trailer. Previously thought to perhaps have vascular compromise due to some autoimmune issue or raynauds, although JOANA and cryoglobulin were both negative as well as hepatitis C. Has not followed up with primary care. -frostbite with concern for sepsis (tachycardia, WBC 19 at outside hospital) resolved, recurrence of fever is concerning given the patient's on vancomycin and Zosyn we will continue to follow culture results -Good pain control with tylenol, dilaudid prn -blood cultures show only 1 of 2 showing coag negative staph which is unclear whether contaminant or real given she has significant skin integrity breakdown - MRI imaging suggests tissue to entire left foot and front parts of right foot Given challenges in the patient being able to be consented for any procedure and also refusing procedure surgery has taken a step back and are recommending a conservative approach in this patient the timing of her fever now on antibiotics is brings concern to me that the patient may require an intervention more sooner than later. We are attempting to determine competency may be have a guardian appointed Difficult social situation -This is a second time patient has presented medical problems secondary to exposure to the elements -Discharge planning has involved Adult Protective Services and we have had a psychiatric consultation to determine competency Poor dentition -May benefit from referral to [facility] dentistry although transport may be an issue. (2) Frostbite of both feet: Frostbite of bilateral feet progressing to gangrene b/l gabriel jewell between the toes Orthopedics has recommended transfer to tertiary center however the patient is resistant to this thought and also assisted to the notion or discussion of amputation (3) DVT prophylaxis: lovenox for dvt prevention Subjective Patient is complaining of having pain in her feet when she tries to ambulate or has not dependent. She still is resistant to consideration of amputation for gangrene. She is also resisting giving us information regarding her brothers or other family members to discuss her health care she has had low-grade temperatures but no did not significant elevations of temperature since 03/18 Review of Systems ROS: well nourished well developed. No double vision blurry vision No problems with speech or swallowing No palpitations, chest pain or pressure No Wheezing or breathing issues No abdominal pain nausea vomiting diarrhea changes in appetite or weight No burning urine urine frequency or changes in color Significant bilateral foot pain with weightbearing Purple black discoloration of both feet No focused back pain or numbness or loss of strength No changes in memory or confusion Physical Exam 2 Vital Signs (Past 24 Hours): Last Vital Signs Temp 37.5 C 03/19/18 06:55 Pulse 94 H 03/19/18 06:55 Resp 16 03/19/18 06:55 BP 126/74 03/19/18 06:55 Pulse Ox 99 03/19/18 06:55 The patient appeared with poor dentition and appears Vital signs as documented. Head exam is unremarkable. normocephalic, atraumatic Neck is without jugular venous distension, thyromegaly, or lymphademopathy Lungs are clear to auscultation and percussion. Cardiac exam reveals Rhythm is regular. First and second heart sounds normal. Abdominal exam reveals normal bowel sounds, no masses, no organomegaly Extremities bilateral gangrene worse in the left leg with purple and now blackened discoloration in line of demarcation Neurologic exam is A&Ox3, patient has decreased sensation to her feet decreased pain when she bears weight Psychologically seems anxious still resistant to discussion regarding definitive treatment of her feet _ (1) Frostbite of both feet Encounter type: initial encounter Qualified Code(s): T33.821A - Superficial frostbite of right foot, initial encounter; T33.822A - Superficial frostbite of left foot, initial encounter
--- NOTE | 2018-03-19 18:35 | Psychiatric Consultation ---
Date of Consultation March 19, 2018 Impression / Recommendations Impression The patient is a 58yo female living in a trailor that has limited heat and pedestrian transportation. SHe has sustained severe damage to her feet two estrada in a row presently being treated for sepsis, bilateral gangrene in her feet recommended for debridement and amputation. She does show evidence of poor judgement being outside "bending the rules" resulting in a choice or series of choices that have lead to her current medical infection and gangrene. Medical Decisional Capacity is a decision by decision basis and can change with time. #1 She has capacity to decline surgery at this time. She presently has ability to communicate a choice, discuss and understand the relavent information about her feet injuries and subsequent local and systemic infection, and appreciate the situation that it may or may not improve further with ongoing antibiotic treatment, and that her goal is to preserve as much tissue as possible fearing that the orginal MRI assessment may be inaccurate about the degree of damage (as that is consistent to what happened last year.) She is open to ongoing antibiotics and a second opinion noting that if there is no further improvement and a second surgeon recommends amputation she is likely to agree at that point. #2 She does not have capacity to return home at this time. She is unable to appreciate the relevant information regarding risks and benefits of returning home vs further medical care or possibly longer term placement, and she is not able to reason through because she is stuck on one aspect. It is further unclear if her insight about her housing suitability is accurate on which she is basing her conclusions to be able to return. Please consult Adult Protective Services to visit the home, to talk to her case packer Scott, and her friend Mandeep to gain better insight on her living quarters to see if it is fit to live in at all, and to assess at point of medical discharge if patient's physical capacity and living quarters are sufficient. I am suspect that they are not. Recommendations for communication: - clear simple language, pictures or showing her visually when appropriate, possibly writing down choices in straight forward language and giving her time to think, answering initial questions then returning to reveiw and answer any additional questions. I do beleive having met her that communication may need to evolve with this patient, and we will need to be patient with her as she tries to fight her tendency to avoid as a coping mechanism. I do not beleive this patient is a direct danger to herself from intentional self harm such as suicide, nor a danger to others. Please call with additional questions or concerns. Psych History Identifying Data 58-year-old female with past medical history of bilateral foot toe gangrene requiring surgical debridement secondary to frostbite 1 year ago, who presents as a transfer from the [facility] with repeat concerns. SHe has been advised that amputation is highly recommended with a transmetatarsal amputation on one side and a BKA on the other. She has refused due to wanting to ambulate independently in the future so she can return home. SHe lives in a trailer that is not insulated and is heated only by two space heaters Questions for psychiatry are two fold - does she have capacity to refuse surgery at this time? does she have capacity to return home at this time? Chief Complaint "I am not refusing treatment!". History of Present Illness The patient was seen by the [facility] liaison nurse and then again by this provider. She is diffuse and tangential and often deflects the conversation when she is asked more directly about her feet and the medical care recommendations, but when pressed and given time she will answer questions but not linearly. SHe states "people are so negative....I don't like to talk about these things." IN summary, the patient denies formal psychiatric history. However she does state "I am not crazy, I am not bipolar" when she was told the psychiatrist would be visiting later. SHe does have a chaotic social history (son placed with her in-laws when he was 9yo for unclear reasons) and states several times "all rule can be bent or broken." Although not diagnostic may be suggestive of choices and reasoning that may border on questionable. She denies feeling depressed or anxious. SHe is concerned about not being home to care for her cats but states a "friend is doing that." She denies safety concerns, denies h/o psychosis or elevated or irritable states. When asked about her illness she is able to state that she has frostbite on her feet and that she is on antibiotics to treat infection She is aware she is recommended for surgery but reasons for not having surgery include trying to maintain mobility so that she can return to independent living. She is aware the risk of not treating is worsneing infection and "it can get into my blood" and is aware that if septic she could . SHe states the infection already has gotten into her blood some, "but I am on antibiotics for that and it is helping." She states last year her MRI showed "more damage than there was and I am worried that the [current] MRI now is wrong, too." She states she is not declining treatment and wants to see "how much the antibiotics can do." WHen asked what would help her feel more confident in the diagnosis and exam for degree of injury she cites seeing her prior surgeon who is not presently available. She states she would listen to recommendations from a second evaluation by a second surgeon. WHen asked what she would do if the second evaluation surgical opinion was that she needed amputation she stated "well since I've already had several days of antibiotics I guess I would have the surgery." It is unclear if there is a second opinion available at [facility] by a orthopedic foot surgeon. SHe declines transfer to [facility] or [facility] but states she is willing to go closer to home to [facility] if needed for the procedure. She sees the risks of surgery now will be that it will bee too aggressive and she will lose more leg and foot than needed and will be less likely to be able to walk. 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 Of note she does seem to get annoyed/bothered by aspects of care she cannot control, e.g. wanting a specialist to lead her care rather than a general office worker, wanting to "rest on the weekend and handle it on Wednesday" IN regards to the question does she have capacity to return home at this time? She is not imminently asking to leave the hospital. This should be reassessed at a time when she requests to leave or is deemed medically appropriate for discharge. However at this time, she states she wants to return home and seems to beleives that she will be able to walk and be independent. She is not able to speak about the probability that she will not walk and is very circular about this. She does state that she only goes out in > 30Degree weather but then goes on to share the exceptions to this "when it does not feel like 24 degrees" she has walked places as well. this is consistent with her adage that all rules can be bent or broken. She did not see the wound on her foot because she did not feel it. She has limited insight to her ability to ambulate and live independently with her degree of injury now nor insight to the degree of injury that occurred due to her self-care oversight. She has limited insight to monitor her own physical wellbeing. She does not appreciate that her injury can be somewhat painless until it is very serious. SHe states she has an application through [facility] for weatherization of her trailer and a case manger named Scott to help her. SHe does not have a contact information for Scott. It is unclear if her trailer is indeed habitable as she does not give a ready description of the place. She is not able to state the risks of returning home with her current injury, the benefits of returning home to her are maintaining low rent housing and her independence, she sees no possible benefits in not returning home for her health or wellbeing at this time, and sees the risks of not returning home as "losing everything." She is not able to reason reliably through this process and has a unilateral agenda and stated plan that she will be going home refusing to discuss any other scenario. Allergies Allergy/AdvReac Type Severity Reaction Status Date / Time No Known Allergies Allergy Unverified 02/20/17 03:53 Home Medications Home Medications Medication Instructions Recorded Confirmed Type Amlodipine Besylate 2.5 mg PO QAM 30 Days #15 tab 02/26/17 Rx Cephalexin Monohydrate (Cephalexin) 500 mg PO TID 7 Days #21 cap 02/26/17 Rx Personal History Beliefs That Will Affect Care: None Patient History Medical History Amputated great toe of left foot Amputated great toe of right foot Osteomyelitis Wound infection Surgical History Hx of appendectomy Hx of cholecystectomy Hx of tonsillectomy Social History Current Living Situation: Alone Feels Safe at Home: Yes Smoking Status: Current every day smoker Tobacco Type: cigarettes Cigarettes per Day: 1-3 Do You Dip or Chew Tobacco: No Second Hand Exposure: No Tobacco Cessation Education Requested by Patient: No Hx Alcohol Use: Yes Alcohol Intake Frequency: a few times a week Beliefs That Will Affect Care: None Communication Ability: Effective Physical Exam Psychiatric Orientation: alert and oriented x 3 clean but stringy hair that is not groomed, dirty fingernail beds and under fingernails, very poor dentition throughout her mouth with rotting teeth, she is in hospital gown Eye Contact: good eye contact Motor Behavior: no abnormal motor movements sits in the bed throughout moves the newspaper as if making effort to read but does not do so as she remains engaged with this provider voluble, with regular rate and rythm, upbeat tone majority of the interaction, will lower her tone when she does not like the content of the discussion She interrupts provider and is tangential moving between topics making it hard to have a linear conversation calm, but quick to use interruption to avoid topics she does not want to talk about "okay" appears calm, not irritable, not elated Thought Process: + tangential thought process moves between topics tangentially but is redirectable and given time will give information requested but has to be pressed to focus on more serious topics Thought Content: + preoccupation (witih maintaining independence and avoiding amputation if possible) simplistic reasoning Suicidal Thoughts: denies suicidal thoughts Estimated Intelligence: + below average estimated intelligence Insight: + limited insight (able to discuss medical options iwth patience and time, but more circular and overly simplistic discussing her housing and safety) Judgement: + limited judgement (see insight listed above) Vital Signs (Past 24 Hours) Last Vital Signs Temp 37.9 C H 03/19/18 16:00 Pulse 99 H 03/19/18 16:00 Resp 16 03/19/18 16:00 BP 126/72 03/19/18 16:00 Pulse Ox 96 03/19/18 16:00 Review of Systems psych - denies all sx as stated above ortho - bilateral foot pain otherwise denies 10 system ROS Results & Data Medications Administered Acetaminophen (Tylenol) 650 mg PO Q4H PRN PRN Reason: Pain or Fever Stop: 04/15/18 00:01 Last Admin: 03/18/18 23:14 Dose: 650 mg Admin: 03/18/18 08:07 Dose: 650 mg Admin: 03/17/18 15:33 Dose: 650 mg Admin: 03/16/18 23:35 Dose: 650 mg Enoxaparin Sodium (Lovenox) 40 mg SQ Q24H [facility] Stop: 04/15/18 08:59 Last Admin: 03/19/18 08:55 Dose: Not Given Admin: 03/18/18 08:09 Dose: Not Given Admin: 03/17/18 09:46 Dose: 40 mg Admin: 03/16/18 08:50 Dose: 40 mg Gadobutrol (Gadavist 65ml) 5 ml IV ONCE PRN PRN Reason: Interaction Checking Stop: 03/20/18 22:22 Last Admin: 03/16/18 22:23 Dose: 5 ml Hydromorphone HCl (Dilaudid) 2 mg IV Q4H PRN PRN Reason: Pain Stop: 03/30/18 00:16 Last Admin: 03/16/18 01:41 Dose: 2 mg Sodium Chloride (Nss 1000ml) 1,000 mls @ 80 mls/hr IV .[id number] [facility] Stop: 04/15/18 00:14 Last Admin: 03/19/18 16:40 Dose: 80 mls/hr Infusion: 03/19/18 14:29 Dose: 80 mls/hr Admin: 03/19/18 01:59 Dose: 80 mls/hr Infusion: 03/19/18 01:59 Dose: 80 mls/hr Admin: 03/18/18 13:41 Dose: 80 mls/hr Infusion: 03/18/18 13:41 Dose: 80 mls/hr Admin: 03/18/18 02:07 Dose: 80 mls/hr Infusion: 03/18/18 02:07 Dose: 80 mls/hr Admin: 03/17/18 14:09 Dose: 80 mls/hr Infusion: 03/17/18 14:09 Dose: 80 mls/hr Admin: 03/17/18 08:22 Dose: 80 mls/hr Infusion: 03/17/18 08:22 Dose: 80 mls/hr Infusion: 03/17/18 06:20 Dose: 80 mls/hr Infusion: 03/17/18 05:09 Dose: 80 mls/hr Infusion: 03/17/18 03:05 Dose: 80 mls/hr Infusion: 03/17/18 02:50 Dose: 0 mls/hr Infusion: 03/17/18 01:19 Dose: 80 mls/hr Infusion: 03/16/18 20:41 Dose: 0 mls/hr Admin: 03/16/18 15:38 Dose: 80 mls/hr Infusion: 03/16/18 14:12 Dose: 80 mls/hr Admin: 03/16/18 01:42 Dose: 80 mls/hr Piperacillin Sod/Tazobactam (Sod 3.375 gm/ Dextrose) 115 mls @ 28.75 mls/hr IV Q8H DANA; Protocol Stop: 03/26/18 03:59 Last Infusion: 03/19/18 18:11 Dose: 0 mls/hr Admin: 03/19/18 14:02 Dose: 28.8 mls/hr Infusion: 03/19/18 10:13 Dose: 0 mls/hr Admin: 03/19/18 06:07 Dose: 28.8 mls/hr Infusion: 03/19/18 01:59 Dose: 0 mls/hr Admin: 03/18/18 22:10 Dose: 28.8 mls/hr Infusion: 03/18/18 17:51 Dose: 0 mls/hr Admin: 03/18/18 13:32 Dose: 28.8 mls/hr Infusion: 03/18/18 10:39 Dose: 0 mls/hr Admin: 03/18/18 06:23 Dose: 28.8 mls/hr Infusion: 03/18/18 01:55 Dose: 0 mls/hr Admin: 03/17/18 21:24 Dose: 28.8 mls/hr Infusion: 03/17/18 18:12 Dose: 0 mls/hr Admin: 03/17/18 13:59 Dose: 28.8 mls/hr Infusion: 03/17/18 09:44 Dose: 0 mls/hr Infusion: 03/17/18 09:43 Dose: 0 mls/hr Infusion: 03/17/18 06:20 Dose: 28.8 mls/hr Admin: 03/17/18 06:19 Dose: 28.8 mls/hr Infusion: 03/17/18 02:50 Dose: 0 mls/hr Infusion: 03/17/18 01:19 Dose: 28.8 mls/hr Admin: 03/16/18 22:59 Dose: 28.8 mls/hr Infusion: 03/16/18 15:38 Dose: 0 mls/hr Admin: 03/16/18 12:13 Dose: 28.8 mls/hr Infusion: 03/16/18 09:41 Dose: 0 mls/hr Admin: 03/16/18 05:22 Dose: 28.8 mls/hr Vancomycin HCl 1,000 mg/ (Sodium Chloride) 270 mls @ 125 mls/hr IV Q8H DANA; Protocol Stop: 03/25/18 23:59 Last Admin: 03/19/18 18:12 Dose: 125 mls/hr Infusion: 03/19/18 12:52 Dose: 0 mls/hr Admin: 03/19/18 10:24 Dose: 125 mls/hr
[2018-03-20] MEDS: ACETAMINOPHEN 325 MG TAB PO PRN (00:25)
[2018-03-20] MEDS: VANCOMYCIN HCL 1,000 MG in SODIUM CHLORIDE 0.9% 250 ML IV SCH ×2 (03:13→11:26)
[2018-03-20] MEDS: SODIUM CHLORIDE 0.9% 1000ML 1,000 ML IV SCH ×2 (05:36→16:31)
[2018-03-20] MEDS: PIPERACILLIN/TAZOBACTAM 3.375 GM in DEXTROSE 5% 100 ML IV SCH (05:37)
[2018-03-20] MEDS: ENOXAPARIN INJ 40 MG/0.4 ML SYR SQ SCH (08:08)
[2018-03-20] MEDS ORDERED: VANCOMYCIN TROUGH ONE (09:30)
[2018-03-20 09:36] LABS: Hematocrit (blood only) 23.4 % (37-47); Hemoglobin 7.8 g/dL (12.0-16.0); Mean Corpuscular Hgb Conc 33.3 g/dL (32-36); Mean Corpuscular Volume 91.1 fL (80-100); Mean Platelet Volume 9.2 fL (7.4-10.4); Platelet Count 313 K/uL (130-400); RDW Coefficient of Variation 14.1 % (11.5-14.5); RDW Standard Deviation 46.8 fL (36.4-46.3); Red Blood Count 2.57 M/uL (4.2-5.4); White Blood Count 11.76 K/uL (4.8-10.8)
[2018-03-20 10:10] LABS: BUN Creatinine Ratio 17.1 (10-20); Calcium 8.3 mg/dl (8.5-10.1); Est GFR (African American) 127.1; Est GFR (Non-African American) 109.7; Potassium 3.3 mmol/L (3.5-5.1)
[2018-03-20] MEDS: PIPERACILLIN/TAZOBACTAM 4.5 GM in DEXTROSE 5% 100 ML IV SCH ×2 (13:27→19:54)
--- NOTE | 2018-03-20 13:37 | Hospitalist Progress Note ---
Date of Service March 20, 2018 Assessment & Plan (1) Sepsis: 58-year-old female who presents with frostbite of bilateral feet. Has history of frostbite of bilateral feet as of one year ago. Lives in unheated trailer. Previously thought to perhaps have vascular compromise due to some autoimmune issue or raynauds, although JOANA and cryoglobulin were both negative as well as hepatitis C. Has not followed up with primary care. -frostbite initially with sepsis (tachycardia, WBC 19 at outside hospital) no resolved, recurrence of fever 03/18 is concerning given the patient's on Zosyn did not have mrsa, but coag neg staph, -Good pain control with tylenol, dilaudid prn -blood cultures show only 1 of 2 showing coag negative staph which is unclear whether contaminant or real given she has significant skin integrity breakdown - MRI imaging suggests tissue to entire left foot and front parts of right foot will have second opinion from Dr Monet regarding the appropriate direction of care for the pts injury, she has agreed to this Difficult social situation -This is a second time patient has presented medical problems secondary to exposure to the elements -Discharge planning has involved Adult Protective Services and we have had a psychiatric consultation feels that pt is competent to make decisions regarding the care of her body but has not yet determined if pt is competent to make decisions to return to home Poor dentition -May benefit from referral to [facility] dentistry although transport may be an issue. (2) Frostbite of both feet: Frostbite of bilateral feet progressing to gangrene b/l wpound care is involved, weave kaltostat between the toes (3) DVT prophylaxis: lovenox for dvt prevention Subjective Patient continues to complain of having pain in her feet when she tries to ambulate or has not dependent. she had spoken to psychiatry and is willling to have a second opinion regaring her feet. I have personally spoken to Dr Monet of [facility] and he will see 03/20 Review of Systems ROS: well nourished well developed. No double vision blurry vision No problems with speech or swallowing No palpitations, chest pain or pressure No Wheezing or breathing issues No abdominal pain nausea vomiting diarrhea changes in appetite or weight No burning urine urine frequency or changes in color Distant bilateral foot pain worse with dependency and ambulation Complain of blisters on her feet which are breaking open No unusual bruising or bleeding No focused back pain or numbness or loss of strength No changes in memory or confusion Musculoskeletal: + problem reported (bilateral foot pain ) Physical Exam 2 Vital Signs (Past 24 Hours): Last Vital Signs Temp 36.8 C 03/20/18 13:30 Pulse 81 03/20/18 07:56 Resp 18 03/20/18 07:56 BP 134/83 03/20/18 07:56 Pulse Ox 99 03/20/18 07:56 The patient appeared actually poor dentition Vital signs as documented. Head exam is unremarkable. normocephalic, atraumatic Neck is without jugular venous distension, thyromegaly, or lymphademopathy Lungs are clear to auscultation and percussion. Cardiac exam reveals Rhythm is regular. First and second heart sounds normal. Abdominal exam reveals normal bowel sounds, no masses, no organomegaly Extremities Marked thinning gangrene both feet right less than left bullae which are in various stages of being both ruptured and intact lack of sensation lack of ability to move her toes Neurologic exam is A&Ox3, significant reduction in pain sensation except when dependent and with pressure Psychologically seems neither anxious or depressed did see psychiatry of refer you to their records _ (1) Frostbite of both feet Encounter type: initial encounter Qualified Code(s): T33.821A - Superficial frostbite of right foot, initial encounter; T33.822A - Superficial frostbite of left foot, initial encounter
--- NOTE | 2018-03-20 14:32 | Orthopedic Consultation ---
Date of Consultation March 20, 2018 Assessment & Plan (1) Frostbite of both feet: IMPRESSION: Frostbite bilateral lower extremities left more extensive than the right. PLAN: After a lengthy discussion with the patient today regarding my above clinical findings, as well as reviewing her imaging, I explained she has extensive damage to both lower extremities, the left being worse than the right. This is still declaring itself, but antibiotics will not reverse the damage that is already done. Recommend left BKA and evaluation of the right side by Dr. Lalita Mendes for possible trans-metatarsal amputation. I explained that the recovery process will be difficult due to balance issues and gait control as both her lower extremities will be effected. I am not sure that she comprehended the extensiveness of her situation both in regards to her health, activity, and that she will likely require a correction facility afterward. In addition I explained that nonsurgical treatment would not be recommended as the limbs would continue to decay/ and the infection would likely return to sepsis and multi-system organ failure and . She will think this over further. I spoke both with the primary service detailing the above plan as well as Dr. Pierre, who will be seeing the patient Wednesday morning. Thank you for allowing me to participate in this patient's care. Present on Admission?: Yes History of Present Illness Reason for Consultation: Second opinion bilateral lower extremity frostbite Attending Physician: Checo Malave MD History of Present Illness 58-year-old female with past medical history of bilateral foot toe gangrene requiring surgical debridement secondary to frostbite 1 year ago, who presents with similar complaints. Patient states noticed bilateral foot pain starting several days ago, subsequent redness and swelling of bilateral feet with purple and blue discoloring and with blisters. She asked her friend to drive her to the [place] emergency room. Dr. Infante performed previous toe amputations. She was transferred to [facility] on March 16, 2018. She has been seen by the wound care team. Consults have been performed by vascular, indicating no vascular compromise and referred for further care by orthopedics. Dr. Infante apparently is unavailable and his partner who is covering for him believes she should be transferred to a tertiary care facility. She has been started on IV Zosyn as well as IV fluids. I was consulted as a second opinion. Allergies Allergy/AdvReac Type Severity Reaction Status Date / Time No Known Allergies Allergy Unverified 02/20/17 03:53 Home Medications Home Medications Medication Instructions Recorded Confirmed Type Amlodipine Besylate 2.5 mg PO QAM 30 Days #15 tab 02/26/17 Rx Cephalexin Monohydrate (Cephalexin) 500 mg PO TID 7 Days #21 cap 02/26/17 Rx Patient History Medical History Amputated great toe of left foot Amputated great toe of right foot Osteomyelitis Wound infection Surgical History Hx of appendectomy Hx of cholecystectomy Hx of tonsillectomy Social History Current Living Situation: Alone Feels Safe at Home: Yes Smoking Status: Current every day smoker Tobacco Type: cigarettes Cigarettes per Day: 1-3 Do You Dip or Chew Tobacco: No Second Hand Exposure: No Tobacco Cessation Education Requested by Patient: No Hx Alcohol Use: Yes Alcohol Intake Frequency: a few times a week Beliefs That Will Affect Care: None Communication Ability: Effective Review of Systems 10 point review of systems is otherwise noncontributory Physical Exam 2 Vital Signs (Past 24 Hours): Last Vital Signs Temp 36.8 C 03/20/18 13:30 Pulse 81 03/20/18 07:56 Resp 18 03/20/18 07:56 BP 134/83 03/20/18 07:56 Pulse Ox 99 03/20/18 07:56 Physical Exam: Bilateral lower extremities, eschar of remaining toes and feet , to the midfoot on the right dorsally, the left foot involves the entire foot and heel. Severe soft tissue swelling and blistering most notably dorsally. Unable to remove the remaining toes. Calves are soft and nontender. Results & Data Diagnostic Findings RADIOGRAPHS: Multiple views of bilateral feet performed to July 28, 2018, show evidence of previous great toe and second toe amputations, with some mild cortical irregularity. Soft tissue swelling bilaterally, questionable air. MRI: Left foot, concerning for necrosis likely from frostbite. Chronic dorsal subluxation/deformity of the third toe. No evidence of osteomyelitis. Extensive skin blistering and subcutaneous edema. Evidence of previous surgery. MRI: Right foot, again shows concerning for tissue necrosis secondarily to frostbite. No osteomyelitis. Evidence of previous surgery. Her arterial noninvasives show normal flow down through the ankles. _ (1) Frostbite of both feet Encounter type: initial encounter Qualified Code(s): T33.821A - Superficial frostbite of right foot, initial encounter; T33.822A - Superficial frostbite of left foot, initial encounter
[2018-03-21] MEDS: PIPERACILLIN/TAZOBACTAM 4.5 GM in DEXTROSE 5% 100 ML IV SCH ×3 (04:00→20:42)
[2018-03-21] MEDS: SODIUM CHLORIDE 0.9% 1000ML 1,000 ML IV SCH ×2 (05:03→17:44)
[2018-03-21 05:56] LABS: Hematocrit (blood only) 22.9 % (37-47); Hemoglobin 7.6 g/dL (12.0-16.0); Mean Corpuscular Hgb Conc 33.2 g/dL (32-36); Mean Corpuscular Volume 91.2 fL (80-100); Mean Platelet Volume 9.5 fL (7.4-10.4); Platelet Count 367 K/uL (130-400); RDW Coefficient of Variation 13.9 % (11.5-14.5); RDW Standard Deviation 46.9 fL (36.4-46.3); Red Blood Count 2.51 M/uL (4.2-5.4); White Blood Count 13.28 K/uL (4.8-10.8)
[2018-03-21 06:31] LABS: BUN Creatinine Ratio 17.8 (10-20); Calcium 8.4 mg/dl (8.5-10.1); Creatinine Clr Calc Pharmacy 124.3 ml/min; Est GFR (Non-African American) 112.2; Potassium 3.7 mmol/L (3.5-5.1)
--- NOTE | 2018-03-21 07:53 | Podiatry Consultation ---
Date of Consultation March 21, 2018 Patient seen at bedside this morning, she was in good spirits and stated her feet only hurt after she has tried to stand - extensive bilateral piper bite; right side with all digits involved and forefoot with platnar extension to midfoot area and blister present at lateral aspect of the foot - left foot with entire foot involved, large dorsolateral blister present that involves almost the entire lateral aspect of the foot as well as another involving the plantar foot Assessment & Plan (1) Frostbite of both feet: IMPRESSION: Frostbite bilateral lower extremities left more extensive than the right. PLAN: Discussed with the patient that the left side would likely best be treated with a BKA and the right with a Transmetatarsal amputation, although bilateral amputations is not ideal the concern for sepsis due to wet gangrene is a more pressing concern at this point, patient was understanding and verabalized to me understanding Encounter type: initial encounter Qualified Code(s): T33.821A - Superficial frostbite of right foot, initial encounter; T33.822A - Superficial frostbite of left foot, initial encounter History of Present Illness Attending Physician: Santo Bates MD, PhD, [facility] - Patient seen today at bedside, concern is patient's mental status and understanding of the severity of her bilateral infections and piper bite - Discussed with patient that the best course of treatment is a right sided transmetatarsal amputation and a BKA on the left side, there are blister present and significant drainage that was on her offloading boots, I feel that allowing the area to demarcate will likely lead to wet gangrene and sepsis Allergies Allergy/AdvReac Type Severity Reaction Status Date / Time No Known Allergies Allergy Unverified 02/20/17 03:53 Home Medications Home Medications Medication Instructions Recorded Confirmed Type Amlodipine Besylate 2.5 mg PO QAM 30 Days #15 tab 02/26/17 Rx Cephalexin Monohydrate (Cephalexin) 500 mg PO TID 7 Days #21 cap 02/26/17 Rx Patient History Medical History Amputated great toe of left foot Amputated great toe of right foot Osteomyelitis Wound infection Surgical History Hx of appendectomy Hx of cholecystectomy Hx of tonsillectomy Social History Current Living Situation: Alone Feels Safe at Home: Yes Smoking Status: Current every day smoker Tobacco Type: cigarettes Cigarettes per Day: 1-3 Do You Dip or Chew Tobacco: No Second Hand Exposure: No Tobacco Cessation Education Requested by Patient: No Hx Alcohol Use: Yes Alcohol Intake Frequency: a few times a week Beliefs That Will Affect Care: None Communication Ability: Effective Physical Exam 2 Vital Signs (Past 24 Hours): Last Vital Signs Temp 37.9 C H 03/21/18 07:36 Pulse 90 03/21/18 07:36 Resp 16 03/21/18 07:36 BP 130/78 03/21/18 07:36 Pulse Ox 96 03/21/18 07:36 Skin: all dressings removed and boots removed, bilateral feet examined, I specifically focused on the right lower extremity, right side with extensive gangrenous changes involving all digits of the right foot and as well as along the lateral foot and the forefoot and plantar foot, does not appear to involve the ankle - blistering is present laterally, transmetatarsal amputation recommended
[2018-03-21] MEDS: ACETAMINOPHEN 325 MG TAB PO PRN (08:32)
[2018-03-21] MEDS: ENOXAPARIN INJ 40 MG/0.4 ML SYR SQ SCH (08:33)
[2018-03-21 09:38] LABS: Iron 16 mcg/dl (35-150)
[2018-03-21 10:00] LABS: Folate (Folic Acid) 16.62 ng/ml (>5.38)
--- NOTE | 2018-03-21 10:30 | Orthopedic Progress Note ---
Date of Service March 21, 2018 Assessment & Plan (1) Frostbite of both feet: IMPRESSION: Frostbite bilateral lower extremities left more extensive than the right. PLAN: Discussed with the patient their options of continued antibiotics versus surgical intervention with a BKA on the left and a Transmetatarsal amputation on the right. Appreciate Dr. Mendes seeing the patient earlier today and agreeing with the above treatment options and her willingness to coordinate performing both procedures at the same time. I was able to secure OR time tomorrow afternoon. The risks and benefits of both were discussed. The risks of surgery include but not limited to: Infection, bleeding, nerve pain, phantom limb, blood clots, additional surgery, and . The risks of conservative treatment include further limb loss and multi-system organ failure leading to . In addition we discussed the need for fdc facility, along with wire repairer for prostheses for both lower extremities, and that she will need to work with physical therapy on gait training, and that her recovery will be prolonged due to the involvement of both lower extremities. Dr. Bates, Hospitalist team, was present during my visit today and is aware of the plan. She will be nothing by mouth after midnight. We will continue her current antibiotic course. We will hold Lovenox after tonight's dose. This may be restarted after surgery tomorrow. The patient understood all my instructions and explanation; all their questions were satisfactorily addressed. The informed consent was signed for the left BKA. Subjective Ready to have surgery. Physical Exam 2 Vital Signs (Past 24 Hours): Last Vital Signs Temp 36.9 C 03/21/18 10:08 Pulse 90 03/21/18 07:36 Resp 16 03/21/18 07:36 BP 130/78 03/21/18 07:36 Pulse Ox 96 03/21/18 07:36 Physical Exam: Bilateral lower extremities: eschar of remaining toes and feet , to the mid-foot on the right dorsally, the left foot involves the entire foot and heel. Severe soft tissue swelling and blistering most notably dorsally. Unable to remove the remaining toes. Calves are soft and non-tender. _ (1) Frostbite of both feet Encounter type: initial encounter Qualified Code(s): T33.821A - Superficial frostbite of right foot, initial encounter; T33.822A - Superficial frostbite of left foot, initial encounter
--- NOTE | 2018-03-21 13:58 | Anesthesiology Consultation ---
Date of Service March 21, 2018 Assessment & Plan (1) Encounter for pre-operative examination: Chart Review Chart Review: Acceptable Risk for Surgery and Patient NOT seen in Pre Admission Testing Patient had been getting lovenox inpatient but it's being held. I noticed patient has had a significant downtrend in her H/H and spoke with Dr. Bates ( hospitalist) and he stated he is working her up for the underlying cause. I will order a type and cross for surgery tomorrow. Consults Requested none History Surgery Operation Date: 03/22/18 13:00 Proposed Procedures p Left Below Knee Amputation - MD bhakti Kelley Right Transmetatarsal Amputation - Lalita Nettles DPM Height/Weight Height: 5 ft 6 in Weight: 54.6 kg Allergies Allergy/AdvReac Type Severity Reaction Status Date / Time No Known Allergies Allergy Unverified 02/20/17 03:53 Medications Home Medications Medication Instructions Recorded Confirmed Last Taken Amlodipine Besylate 2.5 mg PO QAM 30 Days #15 tab 02/26/17 Unknown Cephalexin Monohydrate (Cephalexin) 500 mg PO TID 7 Days #21 cap 02/26/17 Unknown Active Medications Generic Name Dose Route Start Last Admin Trade Name Freq PRN Reason Stop Dose Admin Acetaminophen 650 mg 03/16/18 00:02 03/21/18 08:32 Tylenol PO 04/15/18 00:01 650 mg Q4H PRN Administration Pain or Fever Enoxaparin Sodium 40 mg 03/16/18 09:00 03/21/18 08:33 Lovenox SQ 04/15/18 08:59 Not Given Q24H DANA Hydromorphone HCl 2 mg 03/16/18 00:17 03/16/18 01:41 Dilaudid IV 03/30/18 00:16 2 mg Q4H PRN Administration Pain Sodium Chloride 1,000 mls @ 80 mls/hr 03/16/18 00:15 03/21/18 06:32 Nss 1000ml IV 04/15/18 00:14 80 mls/hr .[id number] DANA Infusion Piperacillin Sod/Tazobactam 120 mls @ 28.75 mls/hr 03/20/18 12:00 03/21/18 12 :37 Sod 4.5 gm/ Dextrose IV 03/30/18 11:59 28.8 mls/hr Q8H DANA Administration Protocol Past Medical History Medical History Amputated great toe of left foot Amputated great toe of right foot Anemia Osteomyelitis Wound infection Past Surgical History Surgical History H/O toe surgery I and D L 2nd, 3rd and 4th toes. 02/24/2017. Dr. Infante. LMA #4. No issues. Hx of appendectomy Hx of cholecystectomy Hx of tonsillectomy Social History Smoking Status: Current every day smoker tobacco type: cigarettes Smoking cigarettes per day: 1-3 Do You Dip or Chew Tobacco: No Hx Alcohol Use: Yes alcohol intake frequency: a few times a week Physical Exam Vital Signs Last Vital Signs Temp 36.9 C 03/21/18 10:08 Pulse 90 03/21/18 07:36 Resp 16 03/21/18 07:36 BP 130/78 03/21/18 07:36 Pulse Ox 96 03/21/18 07:36 ENMT Mouth: + dentition abnormality, + poor dentition (extremely poor dentition. missing and decaying teeth. ) and + loose teeth Thyromental Distance: > or= 3.5 Finger Breadths Mallampati Class: II Neck normal visual inspection Respiratory Auscultation: lungs clear to auscultation bilaterally Cardiovascular Rate/Rhythm: regular rate and regular rhythm Testing Electrocardiogram Date: 03/16/18 Findings: + ST @ (118) sinus tach otherwise normal. Laboratory Results 03/21/18 05:42 PT 11.4 Seconds (9.0-12.0) 03/16/18 00:28 INR 1.1 (0.9-1.1) 03/16/18 00:28 03/16/18 00:35 Blood Culture - Final Blood No growth 03/16/18 00:39 Blood Culture - Final Blood Coag neg staph not lugdunensis
[2018-03-21] MEDS ORDERED: SODIUM CHLORIDE 0.9% 250 ML IV PRN (14:31)
--- NOTE | 2018-03-21 17:10 | Hospitalist Progress Note ---
Date of Service March 21, 2018 Assessment & Plan (1) Sepsis: (2) Frostbite of both feet: (3) DVT prophylaxis: 58-year-old female treated on March 16, 2018 with frostbite of bilateral feet. Lives in unheated trailer, Has not followed up with primary care. frostbite initially with sepsis upon admission with tachycardia, WBC 19 at outside hospital) recurrence of fever 2/8 is concerning given the patient's on Zosyn did not have mrsa, but coag neg staph, pain control with tylenol, dilaudid prn blood cultures show only 1 of 2 showing coag negative staph which likely contaminant MRI imaging suggests tissue to entire left foot and front parts of right foot plan left side will treated with a BKA and the right with a Transmetatarsal amputation, will order n.p.o. midnight, and okay Lovenox today but no Lovenox tomorrow Difficult social situation plan Adult Protective Services and we have had a psychiatric consultation feels that pt is competent to make decisions regarding the care of her body but has not yet determined if pt is competent to make decisions to return to home Poor dentition May benefit from referral to [facility] dentistry although transport may be an issue. lovenox for dvt prevention Subjective Pleasant, conversational, no complaint, Bilateral lower feet cyanosis and swelling and red has no changed Denies fever chill, Denies chest pain palpitation or dizziness Denies cough sputum shortness of breath Denies nausea vomiting abdominal pain diarrhea constipation Denies dysuria urgency and frequency Physical Exam 2 Vital Signs (Past 24 Hours): Last Vital Signs Temp 36.7 C 03/21/18 15:58 Pulse 88 03/21/18 15:58 Resp 18 03/21/18 15:58 BP 133/90 03/21/18 15:58 Pulse Ox 98 03/21/18 15:58 Physical Exam: Gen: Pleasant, conversational, no acute distress, Head exam is unremarkable. normocephalic, atraumatic Pupils equal round response to the night, ear was normal nose was normal, poor dentition Neck no jugular venous distension, no thyromegaly, or lymphademopathy Lungs are clear to auscultation and percussion. Cardiac exam reveals Rhythm is regular. First and second heart sounds normal. Abdominal exam reveals normal bowel sounds, no masses, no organomegaly Neurologic exam is A&Ox3, significant reduction in pain sensation except when dependent and with pressure Psychologically seems neither anxious or depressed did see psychiatry of refer you to their records Results & Data Laboratory Results Laboratory Results - last 24 hr 03/21/18 03/21/18 03/21/18 05:42 05:42 09:06 WBC 13.28 H RBC 2.51 L Hgb 7.6 L Hct 22.9 L MCV 91.2 MCH 30.3 MCHC 33.2 RDW Std Deviation 46.9 H RDW Coeff of Darline 13.9 Plt Count 367 MPV 9.5 Sodium 139 Potassium 3.7 Chloride 107 Carbon Dioxide 25 Anion Gap 7.0 BUN 8 Creatinine 0.42 L Est Cr Clr Drug Dosing 124.3 Est GFR ( Amer) 130.0 Est GFR (Non-Af Amer) 112.2 BUN/Creatinine Ratio 17.8 Glucose 97 Calcium 8.4 L Iron 16 L TIBC 126 L Vitamin B12 Folate Blood Type Antibody Screen Crossmatch 03/21/18 03/21/18 09:06 14:24 WBC RBC Hgb Hct MCV MCH MCHC RDW Std Deviation RDW Coeff of Darline Plt Count MPV Sodium Potassium Chloride Carbon Dioxide Anion Gap BUN Creatinine Est Cr Clr Drug Dosing Est GFR ( Amer) Est GFR (Non-Af Amer) BUN/Creatinine Ratio Glucose Calcium Iron TIBC Vitamin B12 322 Folate 16.62 Blood Type AB Negative Antibody Screen NEGATIVE Crossmatch See Detail Microbiology 03/16/18 00:35 Blood Blood Culture - Final No growth _ (1) Frostbite of both feet Encounter type: initial encounter Qualified Code(s): T33.821A - Superficial frostbite of right foot, initial encounter; T33.822A - Superficial frostbite of left foot, initial encounter
[2018-03-22] MEDS: SODIUM CHLORIDE 0.9% 1000ML 1,000 ML IV SCH ×2 (04:42→20:37)
[2018-03-22] MEDS: PIPERACILLIN/TAZOBACTAM 4.5 GM in DEXTROSE 5% 100 ML IV SCH ×3 (04:42→20:37)
[2018-03-22] MEDS ORDERED: CEFAZOLIN 1000MG 1,000 MG/7.5 ML SYR IV SCH (06:00)
[2018-03-22 07:08] LABS: Basophils # (auto) 0.04 K/uL (0-0.2); Basophils % (auto) 0.3 %; Eosinophils # (auto) 0.51 K/uL (0-0.5); Eosinophils % (auto) 3.8 %; Hematocrit (blood only) 23.1 % (37-47); Hemoglobin 7.7 g/dL (12.0-16.0); Immature Granulocytes # (auto) 0.12 K/uL (0.00-0.02); Immature Granulocytes % (auto) 0.9 %; Lymphocytes # (auto) 1.72 K/uL (1.2-3.4); Lymphocytes % (auto) 12.7 %; Mean Corpuscular Hgb Conc 33.3 g/dL (32-36); Mean Corpuscular Volume 92.8 fL (80-100); Mean Platelet Volume 9.3 fL (7.4-10.4); Monocytes # (auto) 0.99 K/uL (0.11-0.59); Monocytes % (auto) 7.3 %; Neutrophils # (auto) 10.14 K/uL (1.4-6.5); Platelet Count 457 K/uL (130-400); RDW Coefficient of Variation 14.1 % (11.5-14.5); RDW Standard Deviation 47.7 fL (36.4-46.3); Red Blood Count 2.49 M/uL (4.2-5.4); White Blood Count 13.52 K/uL (4.8-10.8)
[2018-03-22 07:43] LABS: BUN Creatinine Ratio 20.8 (10-20); Calcium 8.1 mg/dl (8.5-10.1); Creatinine Clr Calc Pharmacy 118.7 ml/min; Est GFR (African American) 128.1; Est GFR (Non-African American) 110.5; Phosphorus 3.6 mg/dl (2.5-4.9); Potassium 4.1 mmol/L (3.5-5.1)
[2018-03-22] MEDS: ACETAMINOPHEN 325 MG TAB PO PRN (07:51)
--- NOTE | 2018-03-22 12:34 | History & Physical Bridge Note ---
Date of Service March 22, 2018 History & Physical Bridge Note I have examined the patient, reviewed the History & Physical and in the interval since the performance of the History & Physical I have noted the following changes of clinical significance: no changes noted right foot transmetatarsal amputation
[2018-03-22] MEDS ORDERED: BUPIVACAINE 0.25% 30 ML VIAL ONE (12:39)
[2018-03-22] MEDS ORDERED: LIDOCAINE HCL 1% 20 ML VIAL ONE (12:39)
[2018-03-22] MEDS ORDERED: MIDAZOLAM HCL 1 MG/ML 2ML VIAL ONE (12:43)
[2018-03-22] MEDS ORDERED: fentaNYL citrate 100 MCG/2 ML VIAL ONE (12:43)
--- NOTE | 2018-03-22 12:49 | Orthopedic Progress Note ---
Date of Service March 22, 2018 Assessment & Plan (1) Frostbite of both feet: IMPRESSION: Frostbite bilateral lower extremities left more extensive than the right. PLAN: OK for OR today for BKA on the left and a Transmetatarsal amputation on the right. Appreciate Dr. Mendes seeing the patient preforming the R TMTA at the same time. Consented for both procedures. Both limbs were marked. Patient has no further questions. Subjective Ready to have surgery. Physical Exam 2 Vital Signs (Past 24 Hours): Last Vital Signs Temp 36.5 C 03/22/18 12:32 Pulse 79 03/22/18 12:32 Resp 20 03/22/18 12:32 BP 113/73 03/22/18 12:32 Pulse Ox 99 03/22/18 12:32 Physical Exam: BLE: Blackened toes visible through dressings. No sensation. _ (1) Frostbite of both feet Encounter type: initial encounter Qualified Code(s): T33.821A - Superficial frostbite of right foot, initial encounter; T33.822A - Superficial frostbite of left foot, initial encounter
[2018-03-22] MEDS ORDERED: BUPIVACAINE 0.5 % 5 MG/1 ML PF 10ML VIAL ONE (12:51)
[2018-03-22] MEDS ORDERED: PROMETHAZINE HCL 12.5 MG in SODIUM CHLORIDE 0.9% 50 ML IV PRN (12:53)
[2018-03-22] MEDS ORDERED: ONDANSETRON INJ 2 MG/ML 2 ML VIAL IV PRN (12:53)
[2018-03-22] MEDS ORDERED: PHENYLEPHRINE 100MCG/ML 5ML SYR IV PRN (12:53)
[2018-03-22] MEDS ORDERED: ATROPINE SULFATE 0.1 MG/ML 10ML SYR IV PRN (12:53)
[2018-03-22] MEDS ORDERED: HYDROmorphone INJ 1 MG/ML SYRINGE IV PRN (12:53)
[2018-03-22] MEDS ORDERED: ePHEDrine sulfate 50 MG/ML AMP IV PRN (12:53)
[2018-03-22] MEDS ORDERED: fentaNYL citrate 100 MCG/2 ML VIAL IV PRN (12:53)
[2018-03-22] MEDS ORDERED: BUPIVACAINE/EPINEPHRINE 0.5% MPF 1:200,000 30 ML VIAL ONE (13:10)
[2018-03-22] MEDS ORDERED: KETAMINE HCL INJ 50 MG/ML 10 ML VIAL ONE (13:27)
[2018-03-22] MEDS ORDERED: GLYCOPYRROLATE 0.2 MG/ML VIAL ONE (13:38)
[2018-03-22] MEDS ORDERED: LIDOCAINE HCL 2% 2 ML VIAL/AMP(20MG/ML) INFIL ONE (13:38)
[2018-03-22] MEDS ORDERED: PROPOFOL IV EMULSION 10 MG/ML 20 ML VIAL IV ONE (13:38)
--- NOTE | 2018-03-22 15:06 | Hospitalist Progress Note ---
Date of Service March 22, 2018 Assessment & Plan (1) Sepsis: (2) Frostbite of both feet: Frostbite of bilateral feet progressing to gangrene b/[facility] care is involved, weave kaltostat between the toes (3) DVT prophylaxis: 58-year-old female treated on March 16, 2018 with frostbite of bilateral feet. Lives in unheated trailer, Has not followed up with primary care. frostbite initially with sepsis upon admission with tachycardia, WBC 19 at outside hospital) recurrence of fever 2/8 is concerning given the patient's on Zosyn did not have mrsa, but coag neg staph, pain control with tylenol, dilaudid prn blood cultures show only 1 of 2 showing coag negative staph which likely contaminant MRI imaging suggests tissue to entire left foot and front parts of right foot: 1. No evidence for osteomyelitis within the right foot. Amputations of the right first and second digits, as described above. 2. Several blisters of the right midfoot and forefoot with diminished enhancement of the underlying subcutaneous tissues and possibly a portion of the extensor musculature which raises the possibility of tissue necrosis. 3. Diffuse muscular edema and enhancement which suggests a nonspecific myositis. plan left side will treated with a BKA and the right with a Transmetatarsal amputation, will resume DVT prophylaxis as soon as possible Difficult social situation plan Adult Protective Services and we have had a psychiatric consultation feels that pt is competent to make decisions regarding the care of her body but has not yet determined if pt is competent to make decisions to return to home Poor dentition May benefit from referral to [facility] dentistry although transport may be an issue. Anemia possible from chronic disease and delusional, stool Hemoccult negative, will follow up lovenox for dvt prevention Subjective Pleasant, conversational, doing the same, no complaint, Denies fever chill, Denies chest pain palpitation or dizziness Denies cough sputum shortness of breath Denies nausea vomiting abdominal pain diarrhea constipation Denies dysuria urgency and frequency Physical Exam 2 Vital Signs (Past 24 Hours): Last Vital Signs Temp 36.5 C 03/22/18 12:32 Pulse 79 03/22/18 12:32 Resp 20 03/22/18 12:32 BP 113/73 03/22/18 12:32 Pulse Ox 99 03/22/18 12:32 Physical Exam: Gen: Pleasant, conversational, no acute distress, no obvious pale, Head exam is unremarkable. normocephalic, atraumatic Pupils equal round response to the night, ear was normal nose was normal, poor dentition Neck no jugular venous distension, no thyromegaly, or lymphademopathy Lungs are clear to auscultation and percussion. Cardiac exam reveals Rhythm is regular. First and second heart sounds normal. Abdominal exam reveals normal bowel sounds, no masses, no organomegaly Neurologic exam is A&Ox3, significant reduction in pain sensation except when dependent and with pressure Psychologically ; no anxious or depressed toes in bilateral lower extremities has cyanotic , swelling and erythema Results & Data Laboratory Results Laboratory Results - last 24 hr 03/21/18 03/21/18 03/21/18 05:42 14:24 17:06 WBC RBC Hgb Hct MCV MCH MCHC RDW Std Deviation RDW Coeff of Darline Plt Count MPV Immature Gran % (Auto) Neut % (Auto) Lymph % (Auto) Leon % (Auto) Eos % (Auto) Baso % (Auto) Immature Gran # (Auto) Neut # (Auto) Lymph # (Auto) Leon # (Auto) Eos # (Auto) Baso # (Auto) Sodium Potassium Chloride Carbon Dioxide Anion Gap BUN Creatinine Est Cr Clr Drug Dosing Est GFR ( Amer) Est GFR (Non-Af Amer) BUN/Creatinine Ratio Glucose Calcium Phosphorus Magnesium Stool Occult Bld Scrn Negative Blood Type AB Negative Blood Type Recheck AB Negative Antibody Screen NEGATIVE Crossmatch See Detail 03/22/18 03/22/18 06:37 06:37 WBC 13.52 H RBC 2.49 L Hgb 7.7 L Hct 23.1 L MCV 92.8 MCH 30.9 MCHC 33.3 RDW Std Deviation 47.7 H RDW Coeff of Darline 14.1 Plt Count 457 H MPV 9.3 Immature Gran % (Auto) 0.9 Neut % (Auto) 75.0 Lymph % (Auto) 12.7 Leon % (Auto) 7.3 Eos % (Auto) 3.8 Baso % (Auto) 0.3 Immature Gran # (Auto) 0.12 H Neut # (Auto) 10.14 H Lymph # (Auto) 1.72 Leon # (Auto) 0.99 H Eos # (Auto) 0.51 H Baso # (Auto) 0.04 Sodium 140 Potassium 4.1 Chloride 108 H Carbon Dioxide 25 Anion Gap 7.0 BUN 9 Creatinine 0.44 L Est Cr Clr Drug Dosing 118.7 Est GFR ( Amer) 128.1 Est GFR (Non-Af Amer) 110.5 BUN/Creatinine Ratio 20.8 H Glucose 89 Calcium 8.1 L Phosphorus 3.6 Magnesium 2.0 Stool Occult Bld Scrn Blood Type Blood Type Recheck Antibody Screen Crossmatch _ (1) Frostbite of both feet Encounter type: initial encounter Qualified Code(s): T33.821A - Superficial frostbite of right foot, initial encounter; T33.822A - Superficial frostbite of left foot, initial encounter
[2018-03-22] MEDS ORDERED: PHENYLEPHRINE 100MCG/ML 5ML SYR ONE (15:32)
--- NOTE | 2018-03-22 16:10 | Post Operative Brief Note ---
Immediate Post Op Note v1 Date of Surgery March 22, 2018 Pre & Post Diagnosis Operation Date: 03/22/18 13:00 Pre-Op Diagnosis: Sepsis, Frostbite Bilateral Lower Extremities Post-Op Diagnosis: Sepsis, Frostbite Bilateral Lower Extremities Procedure Operation Date: 03/22/18 13:00 Actual Procedures p Left Below Knee Amputation(Left) - Demarco Monet MD s Right Transmetatarsal Amputation(Right) - Lalita Nettles DPM Surgeon Demarco Monet MD Riddler Operator Bacilio Braun PAGuy Estimated Blood Loss 30 Findings Consistent with Post-Op Diagnosis Fluids 1000 cc Specimens R Foot cultures R Forefoot L Lower leg Drains Other Complications none
--- NOTE | 2018-03-22 16:13 | Post Operative Brief Note ---
Immediate Post Op Note v1 Date of Surgery March 22, 2018 Pre & Post Diagnosis Operation Date: 03/22/18 13:00 Pre-Op Diagnosis: Sepsis, Frostbite Post-Op Diagnosis: Sepsis, Frostbite Procedure Operation Date: 03/22/18 13:00 Actual Procedures p Left Below Knee Amputation(Left) - Demarco Monet MD s Right Transmetatarsal Amputation(Right) - Lalita Nettles DPM Surgeon Lalita Nettles DPM Migratory Worker Bacilio Braun PA-C Estimated Blood Loss 30 Findings Consistent with Post-Op Diagnosis Specimens R Foot cultures R Forefoot L Lower leg Drains Other
--- NOTE | 2018-03-22 16:14 | Operative Report ---
Post Operative Report Pre & Post Diagnosis Operation Date: 03/22/18 13:00 Pre-Op Diagnosis: Sepsis, Frostbite Bilateral Lower Extremities Post-Op Diagnosis: Sepsis, Frostbite Bilateral Lower Extremities Procedure Operation Date: 03/22/18 13:00 Actual Procedures p Left Below Knee Amputation(Left) - Demarco Monet MD s Right Transmetatarsal Amputation(Right) - Lalita Nettles DPM Surgeon Demarco Monet MD [place] Bacilio Braun PA-C Estimated Blood Loss 30 Findings See Below Left lower extremity with severe frostbite injury, eschar of the entire remaining toes and forefoot dorsally. There is a large bullae over the entire dorsum of the foot to the ankle. The eschar on the bottom of the foot goes to the heel. Fluids 1000 cc Specimens R foot Cultures. R Forefoot. Left lower leg Drains Privina x 2 Anesthesia Type Spinal MAC Complications none Indications The patient is a 58 year old female with severe frostbite to bilateral lower extremities, left worse than right. Her treatment options of continued IV antibiotics versus surgical intervention with continued antibiotics were discussed. The risks of just continuing with IV antibiotics include further loss of limb, progression of sepsis to multi-system organ failure and . The patient understands the risks of surgery, which include but are not limited to: bleeding, infection, re-operation, damage to nerves and arteries, continued pain, nerve pain, phantom limb syndrome, decreased level of activity, and DVT. The patient understands all of these instructions and explanations, all of their questions have been satisfactorily addressed. I had consented the patient for a left BKA, as there was significant injury to the entirety of the foot and to allow for the best possible lever arm and stump protection. Dr. Mendes consented her for a right trans-metatarsal amputation. The patient has elected to proceed with surgery and the informed consent was signed. Description of Procedure The patient was taken to the Operating Room and placed in the supine position on the operating table. After spinal anesthetic was administered a multidisciplinary time-out was performed identifying my initials on the Left lower limb and Dr. Osorio initials on the right lower leg as the correct and operative limbs. Prior to the incisions being made, her regiment of Zosyn was given. Bilateral lower extremities were prepped and draped in the standard sterile fashion. The incision was planned to allow for the best possible lever arm and protection of the stump for a left BKA. The planned incision approximately 12.5 cm distal from the medial joint line anteriorly was carried posteriorly for the anterior flap and a longer posterior flap and additional 15 cm was injected with a 50:50 mixture of 1% lidocaine plain and half percent Marcaine with epi for a total of [address] Tho Nava, inflated her tourniquet first. After approximately 10 minutes , and with the left lower limb following gravity exsanguination, the tourniquet was inflated. The planned incision was carried through the skin with a scalpel, creating a large subcutaneous flap that included the periosteum on the anterior medial tibia. The saphenous vein. The saphenous nerve was cut short. The fascia of the anterior lateral compartment was also incised creating the anterior flap. The superficial peroneal nerve was sharply dissected and released short and the deep peroneal nerve was also sharply dissected and released short. The anterior tib artery and vein were ligated both proximally and distally and released. The tibia was exposed and protected posteriorly with Homans. Using a saw, the anterior edge was beveled and the tibia was completely released at approximately 12.5 cm in the joint line. The fibula was then exposed and this was also released approximately 1 cm proximal to the tibial cut. The posterior dissection was further continued and the posterior tibial artery and veins were identified, ligated in the standard fashion and released. The tibial nerve was also ligated and cut short with sharp dissection. Then using the amputation knife, the long posterior flap was created and the lower left limb was sent for specimen. The wound was copiously irrigated. A single drill hole was placed within the tibia. Using 0 Vicryl, the posterior flap was secured to the anterior fascia, periosteum and through the drill hole through the tibia. There was an excellent coverage of the bony eminences with soft tissue and muscle. The remaining fascia from the posterior flap was secured to the fascia and periosteum of the anterior flap using 0 Vicryl. All the instruments were removed. The subcutaneous layer was closed with 3-0 Vicryl. The skin was closed with 0 Prolene in a vertical mattress fashion and 2-0 Prolene in a horizontal mattress fashion. There were no dog ears. The limb was cleaned and dried. A Provina incisional wound VAC was placed over top of the incision. There was a good seal. The leg was then covered with cast padding and a posterior splint was applied. The sponge and needle counts were correct. Post-op Instructions: The patient will be readmitted to the medicine service. She will continue with pain control. The Provina incisional wound vacs will remain in place for 7 days. I consult will be made to the youth associate, so that when she is ready, prosthesis for the right foot and left BKA may be created. We will continue to follow while she is in the hospital. I attest to the content of the Intraoperative Record and any orders documented therein. Any exceptions are noted below.
--- NOTE | 2018-03-22 16:40 | Operative Report ---
Post Operative Report Pre & Post Diagnosis Operation Date: 03/22/18 13:00 Pre-Op Diagnosis: Sepsis, Frostbite Post-Op Diagnosis: Sepsis, Frostbite Procedure Operation Date: 03/22/18 13:00 Actual Procedures p Left Below Knee Amputation(Left) - MD bhakti Kelley Right Transmetatarsal Amputation(Right) - Lalita Nettles DPM Surgeon Dr. Demarco Monet [place] Bacilio Braun PA-C Estimated Blood Loss 30 Findings Consistent with Post-Op Diagnosis Specimens See operative report Drains Prevena wound vac bilat lower extremities Complications none Disposition Accompanied Patient To Recovery: Yes Disposition: Recovery Room Indications This 58-year-old white female presented through the ED for frostbite on both lower extremities. Radiographic imaging was obtained. She elected to proceed with surgical intervention after being educated about potential risks and outcomes. Description of Procedure Patient was taken to the operating room and was administered anesthesia. She was prepped and draped in usual sterile fashion. Please see Dr. Monet's operative report for specifics of the procedure. I was present for the second half of the case. Assistance was provided in tissue retraction, hemostasis, layered tissue closure, final wound closure, and final splinting. Assistance was also provided in wound VAC application. Patient was taken to the recovery room in satisfactory condition. I attest to the content of the Intraoperative Record and any orders documented therein. Any exceptions are noted below.
--- NOTE | 2018-03-22 16:47 | Anesthesiology Progress Note ---
Date of Service March 22, 2018 Anesthesia Post Procedure Vital Signs Vital Signs: Temp Pulse Pulse Resp BP Pulse Ox 03/22/18 16:30 83 16 100/64 95 03/22/18 16:20 79 24 102/55 L 98 03/22/18 16:13 37.1 C 81 18 96/57 L 98 03/22/18 12:32 36.5 C 79 20 113/73 99 03/22/18 08:21 37.0 C 03/22/18 07:10 38.2 C H 91 H 16 107/60 100 03/21/18 23:00 37 C 101 H 18 129/65 98 Pain Intensity Bilateral Foot: Pain Intensity: 0 Notes Mental Status: alert / awake / arousable Patient Amnestic to Procedure: Yes Nausea / Vomiting: adequately controlled Pain: adequately controlled Airway Patency, RR, SpO2: stable & adequate BP & HR: stable & adequate Hydration State: stable & adequate Neuraxial Anesthesia: was administered and sensory block is resolving Anesthetic Complications: no major complications apparent and Pt Satisfied with anesthetic care
--- NOTE | 2018-03-22 16:53 | XRay Report ---
XR knee LT 2V routine CLINICAL HISTORY: s/p BKA postoperative evaluation COMPARISON: None. DISCUSSION: Evidence for a below-knee amputation of the tibia as well as fibula. No acute bony abnorm ality. Surgical drains are in position. There is no evidence for soft tissue swelling. IMPRESSION: Anatomic alignment post below-knee amputation. The above report was generated using voice recognition software. It may contain grammatical, syntax or spelling errors. Electronically signed by: Florin Sparks M.D. 03/22/2018 4:51 PM
--- NOTE | 2018-03-22 16:54 | XRay Report ---
XR foot RT min 3V routine CLINICAL HISTORY: s/p trans metatarsal amputation postoperative evaluation COMPARISON: None. DISCUSSION: Evidence for amputation of the phalanges as well as distal aspects of the first through f ifth metatarsals. Expected postoperative soft tissue change. IMPRESSION: Unremarkable exam post trans-metatarsal amputation as described. The above report was generated using voice recognition software. It may contain grammatical, syntax or spelling errors. Electronically signed by: Florin Sparks M.D. 03/22/2018 4:52 PM
[2018-03-22] MEDS ORDERED: OXYCODONE HCL IR 5 MG TAB (IMMEDIATE RELEASE) PO PRN (17:02)
[2018-03-22] MEDS ORDERED: DiphenhydrAMINE HCL 50 MG/ML VIAL IV PRN (17:02)
[2018-03-22] MEDS ORDERED: KETOROLAC 30 MG/ML VIAL IV PRN (17:02)
[2018-03-22] MEDS ORDERED: METOCLOPRAMIDE HCL INJ 5 MG/ML 2 ML VIAL IV PRN (17:02)
[2018-03-22] MEDS: HYDROmorphone INJ 2 MG/ML SYR/VIAL IV PRN (18:13)
[2018-03-22] MEDS: DOCUSATE SODIUM 100 MG CAP PO SCH (20:36)
--- NOTE | 2018-03-23 00:56 | Operative Report ---
DATE OF OPERATION: 03/22/2018 SURGEON: Lalita Nettles DPM PREOPERATIVE DIAGNOSES: Right foot gangrene related to frostbite of the forefoot and all digits of the right foot. POSTOPERATIVE DIAGNOSES: Right foot gangrene related to frostbite of the forefoot and all digits of the right foot. PROCEDURE: Right foot transmetatarsal amputation. BLOOD LOSS: 10 mL. HEMOSTASIS: Pneumatic ankle tourniquet at 250 mmHg. PROCEDURE FOLLOWS: The patient was brought to the Operating Room and placed in the supine position. The right lower extremity was prepped and draped in the usual sterile manner. A 1:1 mix of 1% lidocaine plain and 0.5% Marcaine was utilized to anesthetize the right foot in the area of the metatarsal heads 1 through 5 and digits 1 through 5. The patient also received a spinal block prior to the procedure and local I.V. sedation was utilized for sedation. At this time, the tourniquet was inflated. A time-out was taken and the procedure began. A fish mouth incision was made at the distal aspect of the right foot. Dissection was carried through the skin and subcutaneous tissues to the level of the bone with care to continue the plantar aspect of the fish mouth incision more distally to allow flap for closure. Next, all of the digits 1 through 5 were disarticulated at the metatarsophalangeal joint. The patient did have a prior hallux and second toe amputation due to again an episode of frostbite and gangrene last winter. The remaining digits were removed in toto and sent to Pathology for permanent specimens. The metatarsal heads were resected utilizing the sagittal saw. The metatarsal heads 1 through 5 were resected with care to ensure that the lengths were of corresponding lengths. Next, any necrotic tissue was removed utilizing a 15 blade and pickup and passed off the table and sent to Pathology for permanent specimen. The pulse lavage was utilized over the area. Aerobic and anaerobic cultures were obtained. Any remaining necrotic or abnormal appearing tissue was dissected from the site. Next, any bleeders or arteries with the lumens were tied off utilizing Vicryl hand ties. Next, Vicryl was used to close the subcutaneous tissue with 3-0 Vicryl. The skin was then closed with a combination of 0 and 2-0 Prolene in horizontal mattress and simple interrupted stitches. Next, a drain VAC was applied over the incision. The tourniquet was deflated. Compressive and corrective dressings were applied. The patient was taken to the Recovery Room with all vital signs stable and intact. She will then transition back to the floor to be under the care of the Medicine Service. At the same time as this procedure, the patient also required a [id number] amputation of the left lower extremity which was performed by my colleague, Dr. Monet in conjunction with the right transmetatarsal amputation. His dictation will follow as well. I attest to the content of the Intraoperative Record and any orders documented therein. Any exceptions are noted below. TRENT
[2018-03-23] MEDS: ACETAMINOPHEN 325 MG TAB PO PRN ×2 (03:24→11:57)
[2018-03-23] MEDS: PIPERACILLIN/TAZOBACTAM 4.5 GM in DEXTROSE 5% 100 ML IV SCH ×3 (03:26→21:22)
[2018-03-23 06:21] LABS: Basophils # (auto) 0.02 K/uL (0-0.2); Basophils % (auto) 0.2 %; Eosinophils # (auto) 0.13 K/uL (0-0.5); Hematocrit (blood only) 24.3 % (37-47); Hemoglobin 7.9 g/dL (12.0-16.0); Immature Granulocytes # (auto) 0.09 K/uL (0.00-0.02); Immature Granulocytes % (auto) 0.7 %; Lymphocytes # (auto) 1.17 K/uL (1.2-3.4); Lymphocytes % (auto) 8.8 %; Mean Corpuscular Hgb Conc 32.5 g/dL (32-36); Monocytes % (auto) 6.8 %; Neutrophils # (auto) 10.96 K/uL (1.4-6.5); Neutrophils % (auto) 82.5 %; Platelet Count 586 K/uL (130-400); RDW Standard Deviation 46.7 fL (36.4-46.3); Red Blood Count 2.64 M/uL (4.2-5.4); White Blood Count 13.27 K/uL (4.8-10.8)
[2018-03-23 06:39] LABS: RBC Morphology Unremarkable
[2018-03-23 06:58] LABS: BUN Creatinine Ratio 17.7 (10-20); Calcium 8.3 mg/dl (8.5-10.1); Creatinine Clr Calc Pharmacy 130.5 ml/min; Est GFR (African American) 132.1; Magnesium 2.1 mg/dl (1.8-2.4); Phosphorus 3.6 mg/dl (2.5-4.9); Potassium 3.8 mmol/L (3.5-5.1)
[2018-03-23] MEDS: DOCUSATE SODIUM 100 MG CAP PO SCH ×2 (08:41→21:20)
[2018-03-23] MEDS: ENOXAPARIN INJ 40 MG/0.4 ML SYR SQ SCH (08:41)
[2018-03-23] MEDS: SODIUM CHLORIDE 0.9% 1000ML 1,000 ML IV SCH ×2 (08:45→21:20)
--- NOTE | 2018-03-23 10:05 | Orthopedic Progress Note ---
Date of Service March 23, 2018 Assessment & Plan (1) Frostbite of both feet: POD 1 - s/p left below knee amputation, right foot transmetatarsal amputation Labs stable Continue PT/OT Ice and elevate for swelling/pain Pain medication as prescribed Recommend Lovenox for DVT prophylaxis. Will discuss findings with Dr. Pierre and Dr. Monet Continue to follow, possible dressing changes tomorrow. I, Dr. Monet, saw and examined the patient and discussed the management with my PA. I reviewed my PAs note and agree with the documented findings and the plan of care I developed. Dr. Pierre is out of town, and I will be covering for her. We will keep Privina wound vacs in place for one week. Have consulted the field applications specialist. Continue care per the primary service. Discharge planning. Subjective Patient sitting at bedside, participating in PT. Denies pain, states that she just ate breakfast, legs feel "heavy", but doing well. Physical Exam 2 Vital Signs (Past 24 Hours): Last Vital Signs Temp 37.4 C 03/23/18 07:33 Pulse 106 H 03/23/18 07:33 Resp 18 03/23/18 07:33 BP 146/77 H 03/23/18 07:33 Pulse Ox 95 03/23/18 07:33 Physical Exam: Dressings intact bilateral lower extremities. Able to do gentle active dorsiflexion and plantar flexion right ankle, pain with left knee ROM attempt. No calf tenderness RLE, calf supple, leg warm Results & Data Laboratory Results 03/23/18 03/23/18 Range/Units 05:52 05:52 WBC 13.27 H (4.8-10.8) K/uL RBC 2.64 L (4.2-5.4) M/uL Hgb 7.9 L (12.0-16.0) g/dL Hct 24.3 L (37-47) % MCV 92.0 (80-100) fL MCH 29.9 (25-34) pg MCHC 32.5 (32-36) g/dL RDW Std Deviation 46.7 H (36.4-46.3) fL RDW Coeff of Darline 14.0 (11.5-14.5) % Plt Count 586 H (130-400) K/uL MPV 9.0 (7.4-10.4) fL Immature Gran % (Auto) 0.7 % Neut % (Auto) 82.5 % Lymph % (Auto) 8.8 % Cobb % (Auto) 6.8 % Eos % (Auto) 1.0 % Baso % (Auto) 0.2 % Immature Gran # (Auto) 0.09 H (0.00-0.02) K/uL Neut # (Auto) 10.96 H (1.4-6.5) K/uL Lymph # (Auto) 1.17 L (1.2-3.4) K/uL Cobb # (Auto) 0.90 H (0.11-0.59) K/uL Eos # (Auto) 0.13 (0-0.5) K/uL Baso # (Auto) 0.02 (0-0.2) K/uL RBC Morphology Unremarkable Sodium 137 (136-145) mmol/L Potassium 3.8 (3.5-5.1) mmol/L Chloride 102 (98-107) mmol/L Carbon Dioxide 27 (21-32) mmol/L Anion Gap 8.0 (3-11) BUN 7 (7-18) mg/dl Creatinine 0.40 L (0.6-1.2) mg/dl Est Cr Clr Drug Dosing 130.5 ml/min Est GFR ( Amer) 132.1 Est GFR (Non-Af Amer) 114.0 BUN/Creatinine Ratio 17.7 (10-20) Glucose 110 H (70-99) mg/dl Calcium 8.3 L (8.5-10.1) mg/dl Phosphorus 3.6 (2.5-4.9) mg/dl Magnesium 2.1 (1.8-2.4) mg/dl _ (1) Frostbite of both feet Encounter type: initial encounter Qualified Code(s): T33.821A - Superficial frostbite of right foot, initial encounter; T33.822A - Superficial frostbite of left foot, initial encounter
--- NOTE | 2018-03-23 16:46 | Hospitalist Progress Note ---
Date of Service March 23, 2018 Assessment & Plan (1) Sepsis: 58-year-old female treated on March 16, 2018 with frostbite of bilateral feet. Lives in unheated trailer, Has not followed up with primary care. frostbite initially with sepsis upon admission with tachycardia, WBC 19 at outside hospital) recurrence of fever 2/8 is concerning given the patient's on Zosyn did not have mrsa, but coag neg staph, POD 1 - s/p left below knee amputation, right foot transmetatarsal amputation Podiatry and orthopedic input appreciated Continue PT/OT Ice and elevate for swelling/pain Pain medication started Lovenox for DVT prophylaxis. pain control with tylenol, dilaudid prn blood cultures show only 1 of 2 showing coag negative staph which likely contaminant MRI imaging suggests tissue to entire left foot and front parts of right foot Will reevaluation clinical conditions, includes blood culture results tomorrow and decide antibiotic Difficult social situation -This is a second time patient has presented medical problems secondary to exposure to the elements -Discharge planning has involved Adult Protective Services and we have had a psychiatric consultation feels that pt is competent to make decisions regarding the care of her body but has not yet determined if pt is competent to make decisions to return to home Poor dentition -May benefit from referral to [facility] dentistry although transport may be an issue. per Request I called to patient's brother Garrison Nye at [phone], updated to him patient's conditions and care plan, he want to talk to bottle caser (2) Frostbite of both feet: (3) DVT prophylaxis: Subjective Sitting up, pleasant, clean out by herself, reported doing okay, pleasant, no complaint, Denies fever chill, Denies chest pain palpitation or dizziness Denies cough sputum shortness of breath Denies nausea vomiting abdominal pain diarrhea constipation Denies dysuria urgency and frequency Musculoskeletal: + problem reported (bilateral foot pain ) Physical Exam 2 Vital Signs (Past 24 Hours): Last Vital Signs Temp 37.3 C 03/23/18 15:06 Pulse 104 H 03/23/18 15:06 Resp 18 03/23/18 15:06 BP 135/72 03/23/18 15:06 Pulse Ox 96 03/23/18 15:06 Physical Exam: Gen: Pleasant, conversational, no acute distress, no obvious pale, Head exam is unremarkable. normocephalic, atraumatic Pupils equal round response to the night, ear was normal nose was normal, poor dentition Neck no jugular venous distension, no thyromegaly, or lymphademopathy Lungs are clear to auscultation and percussion. Cardiac exam reveals Rhythm is regular. s1, s2 Abdominal exam reveals normal bowel sounds, no masses, no organomegaly Neurologic exam is A&Ox3, significant reduction in pain sensation except when dependent and with pressure Psychologically ; no anxious or depressed feliberto lower ext in dress Results & Data Laboratory Results Laboratory Results - last 24 hr 03/23/18 03/23/18 05:52 05:52 WBC 13.27 H RBC 2.64 L Hgb 7.9 L Hct 24.3 L MCV 92.0 MCH 29.9 MCHC 32.5 RDW Std Deviation 46.7 H RDW Coeff of Darline 14.0 Plt Count 586 H MPV 9.0 Immature Gran % (Auto) 0.7 Neut % (Auto) 82.5 Lymph % (Auto) 8.8 Blaine % (Auto) 6.8 Eos % (Auto) 1.0 Baso % (Auto) 0.2 Immature Gran # (Auto) 0.09 H Neut # (Auto) 10.96 H Lymph # (Auto) 1.17 L Blaine # (Auto) 0.90 H Eos # (Auto) 0.13 Baso # (Auto) 0.02 RBC Morphology Unremarkable Sodium 137 Potassium 3.8 Chloride 102 Carbon Dioxide 27 Anion Gap 8.0 BUN 7 Creatinine 0.40 L Est Cr Clr Drug Dosing 130.5 Est GFR ( Amer) 132.1 Est GFR (Non-Af Amer) 114.0 BUN/Creatinine Ratio 17.7 Glucose 110 H Calcium 8.3 L Phosphorus 3.6 Magnesium 2.1 Microbiology 03/22/18 14:29 Foot,Right Gram Stain - Final 03/22/18 14:29 Foot,Right Aerobic and Anaerobic Culture - Preliminary Pin-point growth present, reincubating. _ (1) Frostbite of both feet Encounter type: initial encounter Qualified Code(s): T33.821A - Superficial frostbite of right foot, initial encounter; T33.822A - Superficial frostbite of left foot, initial encounter
[2018-03-24] MEDS: PIPERACILLIN/TAZOBACTAM 4.5 GM in DEXTROSE 5% 100 ML IV SCH ×3 (04:31→20:06)
[2018-03-24 06:46] LABS: Basophils # (auto) 0.02 K/uL (0-0.2); Basophils % (auto) 0.1 %; Eosinophils % (auto) 2.9 %; Hematocrit (blood only) 25.7 % (37-47); Hemoglobin 8.4 g/dL (12.0-16.0); Immature Granulocytes # (auto) 0.14 K/uL (0.00-0.02); Lymphocytes # (auto) 1.75 K/uL (1.2-3.4); Lymphocytes % (auto) 12.8 %; Mean Corpuscular Hgb Conc 32.7 g/dL (32-36); Mean Corpuscular Volume 92.1 fL (80-100); Mean Platelet Volume 8.8 fL (7.4-10.4); Monocytes # (auto) 1.08 K/uL (0.11-0.59); Monocytes % (auto) 7.9 %; Neutrophils # (auto) 10.23 K/uL (1.4-6.5); Neutrophils % (auto) 75.3 %; Platelet Count 743 K/uL (130-400); RDW Coefficient of Variation 13.9 % (11.5-14.5); RDW Standard Deviation 46.6 fL (36.4-46.3); Red Blood Count 2.79 M/uL (4.2-5.4); White Blood Count 13.62 K/uL (4.8-10.8)
[2018-03-24 07:22] LABS: BUN Creatinine Ratio 14.9 (10-20); Calcium 8.4 mg/dl (8.5-10.1); Creatinine Clr Calc Pharmacy 130.5 ml/min; Est GFR (African American) 132.1; Magnesium 1.9 mg/dl (1.8-2.4); Phosphorus 3.1 mg/dl (2.5-4.9); Potassium 3.7 mmol/L (3.5-5.1)
[2018-03-24 07:23] LABS: Polychromasia 1+
[2018-03-24] MEDS: ENOXAPARIN INJ 40 MG/0.4 ML SYR SQ SCH (08:25)
[2018-03-24] MEDS: DOCUSATE SODIUM 100 MG CAP PO SCH ×2 (08:26→20:06)
[2018-03-24] MEDS: LISINOPRIL 5 MG TAB PO SCH (09:26)
--- NOTE | 2018-03-24 09:47 | Orthopedic Progress Note ---
Date of Service March 24, 2018 Assessment & Plan (1) Frostbite of both feet: POD 2 - s/p left below knee amputation, right foot transmetatarsal amputation both dressing change and new orthoglass splint applied to Lt LE allowing for slight knee flexion to 45 degrees Labs stable Continue PT/OT Ice and elevate for swelling/pain Pain medication as prescribed Recommend Lovenox for DVT prophylaxis. Will discuss findings with Dr. Pierre and Dr. Monet Continue to follow. I, Dr. Monet, saw and examined the patient and discussed the management with my PA. I reviewed my PAs note and agree with the documented findings and the plan of care I developed. We will keep the Prevena dressing on until follow-up appointment in one week, when the patient will see both Dr. Monet and Dr. Kuldeep Nava. Dr. Pierre is out of town, but she is aware of today's findings. Subjective Patient sitting in bed eating breakfast, participating in PT. Denies pain, fever , chills, sweats, CP or SOB. Physical Exam 2 Vital Signs (Past 24 Hours): Last Vital Signs Temp 37.7 C H 03/24/18 07:50 Pulse 107 H 03/24/18 07:50 Resp 18 03/24/18 07:50 BP 161/71 H 03/24/18 07:50 Pulse Ox 96 03/24/18 07:50 Physical Exam: Rt foot: dressing removed. Pravena intact without apparent drainage. Surround tissue looks good with some slight ecchymosis to plantar arch. Post tibial pulse palpable. N/V intact to light touch. Calf soft and supple without TTP. Lt LE: Dressing removed. Pravena intact. No notable drainaged. Surround tissue is pink and patent. Moderately TTP around stump. Good quad tone and able to easily perform SLRT. Knee ROM from 10-90 without difficulty. NV intact in Lt LE. _ (1) Frostbite of both feet Encounter type: initial encounter Qualified Code(s): T33.821A - Superficial frostbite of right foot, initial encounter; T33.822A - Superficial frostbite of left foot, initial encounter
--- NOTE | 2018-03-24 15:49 | Hospitalist Progress Note ---
Date of Service March 24, 2018 Assessment & Plan (1) Sepsis: (2) Frostbite of both feet: (3) DVT prophylaxis: 58-year-old female treated on March 16, 2018 with frostbite of bilateral feet. Lives in unheated trailer, Has not followed up with primary care. frostbite initially with sepsis upon admission with tachycardia, WBC 19 at outside hospita recurrence of fever 2/ is concerning given the patient's on Zosyn did not have mrsa, but coag neg staph, POD 2 - s/p left below knee amputation, right foot transmetatarsal amputation Podiatry and orthopedic input appreciated Continue PT/OT Ice and elevate for swelling/pain Pain medication cont Lovenox for DVT prophylaxis. pain control with tylenol, dilaudid prn blood cultures show only 1 of 2 showing coag negative staph which likely contaminant MRI imaging suggests tissue to entire left foot and front parts of right foot ID consult for abx choice and length Difficult social situation -This is a second time patient has presented medical problems secondary to exposure to the elements -Discharge planning has involved Adult Protective Services and we have had a psychiatric consultation feels that pt is competent to make decisions regarding the care of her body but has not yet determined if pt is competent to make decisions to return to home Poor dentition \May benefit from referral to [facility] dentistry after discharge Has talked to immigration case manager about patient's condition and care plan Subjective Continue doing fair, sitting up, pleasant, clean up by herself, no complaint, Pain fairly controlled, Denies fever chill, Denies chest pain palpitation or dizziness Denies cough sputum shortness of breath Denies nausea vomiting abdominal pain diarrhea constipation Denies dysuria urgency and frequency Musculoskeletal: + problem reported (bilateral foot pain ) Physical Exam 2 Vital Signs (Past 24 Hours): Last Vital Signs Temp 37.0 C 03/24/18 15:03 Pulse 97 H 03/24/18 15:03 Resp 16 03/24/18 15:03 BP 134/69 03/24/18 15:03 Pulse Ox 97 03/24/18 15:03 Physical Exam: Gen: Thin, chronically ill looking, malnutrition, no acute distress, no obvious pale, Head exam is unremarkable. normocephalic, atraumatic Pupils equal round response to the night, ear was normal nose was normal, poor dentition Neck no jugular venous distension, no thyromegaly, or lymphademopathy Lungs are clear to auscultation and percussion. Cardiac exam reveals Rhythm is regular. s1, s2 Abdominal exam reveals normal bowel sounds, no masses, no organomegaly Neurologic exam is A&Ox3, significant reduction in pain sensation except when dependent and with pressure Psychologically ; no anxious or depressed feliberto lower ext in dress Results & Data Laboratory Results Laboratory Results - last 24 hr 03/21/18 03/24/18 03/24/18 14:24 06:11 06:11 WBC 13.62 H RBC 2.79 L Hgb 8.4 L Hct 25.7 L MCV 92.1 MCH 30.1 MCHC 32.7 RDW Std Deviation 46.6 H RDW Coeff of Darline 13.9 Plt Count 743 H MPV 8.8 Immature Gran % (Auto) 1.0 Neut % (Auto) 75.3 Lymph % (Auto) 12.8 [place] % (Auto) 7.9 Eos % (Auto) 2.9 Baso % (Auto) 0.1 Immature Gran # (Auto) 0.14 H Neut # (Auto) 10.23 H Lymph # (Auto) 1.75 [place] # (Auto) 1.08 H Eos # (Auto) 0.40 Baso # (Auto) 0.02 Polychromasia 1+ Sodium 139 Potassium 3.7 Chloride 105 Carbon Dioxide 27 Anion Gap 7.0 BUN 6 L Creatinine 0.40 L Est Cr Clr Drug Dosing 130.5 Est GFR ( Amer) 132.1 Est GFR (Non-Af Amer) 114.0 BUN/Creatinine Ratio 14.9 Glucose 101 H Calcium 8.4 L Phosphorus 3.1 Magnesium 1.9 Crossmatch See Detail Microbiology 03/22/18 14:29 Foot,Right Gram Stain - Final 03/22/18 14:29 Foot,Right Aerobic and Anaerobic Culture - Preliminary Pin-point growth present, reincubating. _ (1) Frostbite of both feet Encounter type: initial encounter Qualified Code(s): T33.821A - Superficial frostbite of right foot, initial encounter; T33.822A - Superficial frostbite of left foot, initial encounter
[2018-03-25] MEDS: PIPERACILLIN/TAZOBACTAM 4.5 GM in DEXTROSE 5% 100 ML IV SCH ×3 (04:22→20:06)
[2018-03-25 07:40] LABS: Basophils # (auto) 0.04 K/uL (0-0.2); Basophils % (auto) 0.4 %; Eosinophils # (auto) 0.38 K/uL (0-0.5); Eosinophils % (auto) 3.6 %; Hematocrit (blood only) 25.5 % (37-47); Hemoglobin 8.2 g/dL (12.0-16.0); Immature Granulocytes # (auto) 0.12 K/uL (0.00-0.02); Immature Granulocytes % (auto) 1.1 %; Lymphocytes # (auto) 2.02 K/uL (1.2-3.4); Lymphocytes % (auto) 19.3 %; Mean Corpuscular Hgb Conc 32.2 g/dL (32-36); Mean Corpuscular Volume 93.4 fL (80-100); Mean Platelet Volume 8.6 fL (7.4-10.4); Monocytes # (auto) 0.97 K/uL (0.11-0.59); Monocytes % (auto) 9.3 %; Neutrophils # (auto) 6.95 K/uL (1.4-6.5); Neutrophils % (auto) 66.3 %; Platelet Count 754 K/uL (130-400); RDW Coefficient of Variation 14.2 % (11.5-14.5); RDW Standard Deviation 48.2 fL (36.4-46.3); Red Blood Count 2.73 M/uL (4.2-5.4); White Blood Count 10.48 K/uL (4.8-10.8)
[2018-03-25 08:16] LABS: BUN Creatinine Ratio 21.1 (10-20); Calcium 8.8 mg/dl (8.5-10.1); Creatinine Clr Calc Pharmacy 106.6 ml/min; Est GFR (African American) 123.6; Est GFR (Non-African American) 106.6; Magnesium 2.1 mg/dl (1.8-2.4); Phosphorus 3.6 mg/dl (2.5-4.9)
[2018-03-25 08:19] LABS: RBC Morphology Unremarkable
--- NOTE | 2018-03-25 08:51 | Orthopedic Progress Note ---
Date of Service March 25, 2018 Assessment & Plan (1) Frostbite of both feet: POD 3 - s/p left below knee amputation, right foot transmetatarsal amputation both dressing change and orthoglass splint re-applied to Lt LE allowing for slight knee flexion at 5 degrees Labs stable Awaiting feather stitcher consult Continue PT/OT Ice and elevate for swelling/pain Pain medication as prescribed Recommend Lovenox for DVT prophylaxis. OK to d/c from orthopedic standpoint after [employer] input Will discuss findings with Dr. Pierre and Dr. Monet I, Dr. Monet, saw and examined the patient and discussed the management with my PA. I reviewed my PAs note and agree with the documented findings and the plan of care I developed. Patient has established follow-up appointment next week with myself and Dr. Pierre. Dr. Pierre is out of town. I will town later today. Please recall if there is any issues, Dr. Thayer is covering. Subjective Patient sitting in bed eating breakfast, participating in PT. Denies pain, fever , chills, sweats, CP or SOB. Physical Exam 2 Vital Signs (Past 24 Hours): Last Vital Signs Temp 37.2 C 03/24/18 23:10 Pulse 92 H 03/24/18 23:10 Resp 18 03/24/18 23:10 BP 121/61 03/24/18 23:10 Pulse Ox 94 03/24/18 23:10 Physical Exam: Rt foot: dressing removed. Pravena intact without apparent drainage. Surround tissue looks good with some slight ecchymosis to plantar arch. Post tibial pulse palpable. N/V intact to light touch. Calf soft and supple without TTP. Lt LE: Dressing removed. Pravena intact. No notable drainaged. Stump looks good, normal appearing skin, BCR < 2sec. Sensation to stump intact. Good quad tone and able to easily perform SLRT. Knee ROM from 5-90 without difficulty. _ (1) Frostbite of both feet Encounter type: initial encounter Qualified Code(s): T33.821A - Superficial frostbite of right foot, initial encounter; T33.822A - Superficial frostbite of left foot, initial encounter
[2018-03-25] MEDS: LISINOPRIL 5 MG TAB PO SCH (09:27)
[2018-03-25] MEDS: ENOXAPARIN INJ 40 MG/0.4 ML SYR SQ SCH (09:28)
[2018-03-25] MEDS: DOCUSATE SODIUM 100 MG CAP PO SCH ×2 (09:28→20:07)
--- NOTE | 2018-03-25 10:29 | Infectious Disease Consult ---
Date of Consultation March 25, 2018 Assessment & Plan (1) Frostbite of both feet: suspect fever due to severe tissue necrosis and likely gangrene. s/p amputations with clinical improvement. suspect telemarketing manager represents skin soco but would suggest short course of po abx at d/c. would suggest Augmentin 875mg po bid x 7 days. continue local wound care. History of Present Illness Attending Physician: Santo Bates MD, PhD, [facility] pt admitted from [facility] with significant b/l foot frostbite and injury. was found to have a wbc as high as 19 on presentation, was also found to have elevated LFTs while at [facility]. She was evaluated by vascular surgery, ortho and podiatry and after MRI b/l feet showed severe tissue necrosis suspected due to frostbite she underwent left bka and right tma on 03/22 - tolerated well. wbc has improved to 10. She did have blood cultures in the ER 1/2 sets grew telemarketing manager. She was initially on vanco, now stopped. She remains on zosyn, tolerating well. OR culture had negative gram stain and only rare telemarketing manager on culture, no sensitivities done. Pain controlled, states she is feeling better today. She did have psych eval here as well. deemed medically compotent but concerns over her living conditions remain. Per chart she is currently living in a trailer with no heat. She did have a previous admission last year fot frostbite, not as severe, did have toe amps. Adult services is investating per chart. She did have fevers intially and has had daily fevers up to the date of surgery. She was afebrile on 03/22, she has had intermittent, isolated low grade fevers the last 2 days but fever curve significantly improved post op. She is afebrile today. She denies previous f/c. she is tolerating dressing changes. She denies abd pain, n/v/d, states she is eating well. no cp, sob, cough, no drainge or bleeding from incisions. ID consulted for d/c abx suggestions. Allergies Allergy/AdvReac Type Severity Reaction Status Date / Time No Known Allergies Allergy Unverified 02/20/17 03:53 Home Medications Home Medications Medication Instructions Recorded Confirmed Type Amlodipine Besylate 2.5 mg PO QAM 30 Days #15 tab 02/26/17 Rx Cephalexin Monohydrate (Cephalexin) 500 mg PO TID 7 Days #21 cap 02/26/17 Rx Patient History Medical History Amputated great toe of left foot Amputated great toe of right foot Anemia Osteomyelitis Wound infection Surgical History H/O toe surgery I and D L 2nd, 3rd and 4th toes. 02/24/2017. Dr. Infante. LMA #4. No issues. Hx of appendectomy Hx of cholecystectomy Hx of tonsillectomy Social History Current Living Situation: Alone Feels Safe at Home: Yes Smoking Status: Current every day smoker Tobacco Type: cigarettes Cigarettes per Day: 1-3 Do You Dip or Chew Tobacco: No Hx Alcohol Use: Yes Alcohol Intake Frequency: a few times a week Beliefs That Will Affect Care: None Communication Ability: Effective Review of Systems all remaining ros reviewed and are negative Physical Exam 2 Vital Signs (Past 24 Hours): Last Vital Signs Temp 37.2 C 03/24/18 23:10 Pulse 92 H 03/24/18 23:10 Resp 18 03/24/18 23:10 BP 121/61 03/24/18 23:10 Pulse Ox 94 03/24/18 23:10 Constitutional: WD/WN, vitals as above Eyes: PERRL, conjunctivae normal, anicteric sclerae ENMT: external ear and nose normal, oropharynx normal Mouth: + poor dentition Neck: normal visual inspection Respiratory: normal respiratory effort, lungs clear to auscultation Cardiovascular: RRR, no murmur, no edema Gastrointestinal (Abdomen): normal bowel sounds, soft, nontender, no hepatosplenomegaly Musculoskeletal: no cyanosis or clubbing, extremities motor strength 5/5 Skin: no rashes, warm and dry b/l le dressing c/d/i Psychiatric: A+Ox3, euthymic affect Results & Data Laboratory Results Microbiology 03/22/18 14:29 Foot,Right Gram Stain - Final 03/22/18 14:29 Foot,Right Aerobic and Anaerobic Culture - Preliminary Pin-point growth present, reincubating. 03/16/18 00:35 Blood Blood Culture - Final No growth 03/16/18 00:39 Blood Blood Culture - Final Coag neg staph not lugdunensis _ (1) Frostbite of both feet Encounter type: initial encounter Qualified Code(s): T33.821A - Superficial frostbite of right foot, initial encounter; T33.822A - Superficial frostbite of left foot, initial encounter
--- NOTE | 2018-03-25 16:06 | Hospitalist Progress Note ---
Date of Service March 25, 2018 Assessment & Plan (1) Sepsis: (2) Frostbite of both feet: (3) DVT prophylaxis: 58-year-old female treated on March 16, 2018 with frostbite of bilateral feet. Lives in unheated trailer, Has not followed up with primary care. frostbite initially with sepsis upon admission with tachycardia, WBC 19 at outside hospita recurrence of fever 2/ is concerning given the patient's on Zosyn POD 3 - s/p left below knee amputation, right foot transmetatarsal amputation ID input appreciated: short course of po abx at d/c. would suggest Augmentin 875mg po bid x 7 days. continue local wound care. Podiatry and orthopedic input appreciated Continue PT/OT Pain medication cont Lovenox for DVT prophylaxis. pain control with tylenol, MRI imaging suggests tissue to entire left foot and front parts of right foot Possible iron deficiency anemia with iron level is low, start iron supplementation , with Colace to prevent constipation, however likely because of anemia from chronic disease, because total iron binding capacity is low as well, vitamin B12 folic acid were normal Difficult social situation Discharge planning has involved Adult Protective Services and we have had a psychiatric consultation feels that pt is competent to make decisions regarding the care of her body Poor dentition May benefit from referral to [facility] dentistry after discharge Subjective Continue pleasant, no complaint, Pain fairly controlled, no fever chill, Denies chest pain palpitation or dizziness Denies cough sputum shortness of breath Denies nausea vomiting abdominal pain diarrhea constipation Denies dysuria urgency and frequency Musculoskeletal: + problem reported (bilateral foot pain ) Physical Exam 2 Vital Signs (Past 24 Hours): Last Vital Signs Temp 36.8 C 03/25/18 15:44 Pulse 87 03/25/18 15:44 Resp 16 03/25/18 15:44 BP 111/67 03/25/18 15:44 Pulse Ox 96 03/25/18 15:44 Physical Exam: Gen: Thin, chronically ill looking, malnutrition, no acute distress, generally looks better Head exam is unremarkable. normocephalic, atraumatic Pupils equal round response to the night, ear was normal nose was normal, poor dentition Neck no jugular venous distension, no thyromegaly, or lymphademopathy Lungs are clear to auscultation and percussion. Cardiac exam reveals Rhythm is regular. s1, s2 Abdominal exam reveals normal bowel sounds, no masses, no organomegaly Neurologic exam is A&Ox3, significant reduction in pain sensation except when dependent and with pressure Psychologically ; no anxious or depressed feliberto lower ext in dress, wound Vax changed this morning Results & Data Laboratory Results Laboratory Results - last 24 hr 03/25/18 03/25/18 07:08 07:08 WBC 10.48 RBC 2.73 L Hgb 8.2 L Hct 25.5 L MCV 93.4 MCH 30.0 MCHC 32.2 RDW Std Deviation 48.2 H RDW Coeff of Darline 14.2 Plt Count 754 H MPV 8.6 Immature Gran % (Auto) 1.1 Neut % (Auto) 66.3 Lymph % (Auto) 19.3 [place] % (Auto) 9.3 Eos % (Auto) 3.6 Baso % (Auto) 0.4 Immature Gran # (Auto) 0.12 H Neut # (Auto) 6.95 H Lymph # (Auto) 2.02 [place] # (Auto) 0.97 H Eos # (Auto) 0.38 Baso # (Auto) 0.04 RBC Morphology Unremarkable Sodium 140 Potassium 4.0 Chloride 106 Carbon Dioxide 28 Anion Gap 6.0 BUN 10 Creatinine 0.49 L Est Cr Clr Drug Dosing 106.6 Est GFR ( Amer) 123.6 Est GFR (Non-Af Amer) 106.6 BUN/Creatinine Ratio 21.1 H Glucose 89 Calcium 8.8 Phosphorus 3.6 Magnesium 2.1 Microbiology 03/22/18 14:29 Foot,Right Gram Stain - Final 03/22/18 14:29 Foot,Right Aerobic and Anaerobic Culture - Preliminary Coag negative Staphylococcus _ (1) Frostbite of both feet Encounter type: initial encounter Qualified Code(s): T33.821A - Superficial frostbite of right foot, initial encounter; T33.822A - Superficial frostbite of left foot, initial encounter
[2018-03-25] MEDS: FERROUS SULFATE 325 MG/7.4 ML UDP PO SCH (18:21)
[2018-03-25] MEDS ORDERED: DOCUSATE SODIUM 100 MG CAP PO SCH (21:00)
[2018-03-26] MEDS: PIPERACILLIN/TAZOBACTAM 4.5 GM in DEXTROSE 5% 100 ML IV SCH (04:18)
[2018-03-26] MEDS: AMOXICILLIN/CLAVULANATE 875 MG TAB PO SCH ×2 (09:00→17:46)
[2018-03-26] MEDS: FERROUS SULFATE 325 MG/7.4 ML UDP PO SCH ×2 (09:00→17:46)
[2018-03-26] MEDS: LISINOPRIL 5 MG TAB PO SCH (12:01)
[2018-03-26] MEDS: DOCUSATE SODIUM 100 MG CAP PO SCH ×2 (12:01→21:16)
[2018-03-26] MEDS: ENOXAPARIN INJ 40 MG/0.4 ML SYR SQ SCH (12:01)
--- NOTE | 2018-03-26 15:36 | Hospitalist Progress Note ---
Date of Service March 26, 2018 Assessment & Plan (1) Sepsis: (2) Frostbite of both feet: (3) DVT prophylaxis: 58-year-old female treated on March 16, 2018 with frostbite of bilateral feet. Lives in unheated trailer, Has not followed up with primary care. frostbite initially with sepsis upon admission with tachycardia, WBC 19 at outside hospital recurrence of fever 2/8 is concerning given the patient's on Zosyn, has changed antibiotic to Augmentin for 7 days per recommendation of infectious disease POD 4 - s/p left below knee amputation, right foot transmetatarsal amputation Podiatry and orthopedic input appreciated Continue PT/OT Pain medication cont Lovenox for DVT prophylaxis. pain control with tylenol, MRI imaging suggests tissue to entire left foot and front parts of right foot Possible iron deficiency anemia with iron level is low, start iron supplementation , with Colace to prevent constipation, however likely because of anemia from chronic disease, because total iron binding capacity is low as well, vitamin B12 folic acid were normal Difficult social situation Discharge planning has involved Adult Protective Services and we have had a psychiatric consultation feels that pt is competent to make decisions regarding the care of her body Poor dentition May benefit from referral to [facility] dentistry after discharge Pending [place] manner of [facility] Subjective Continue doing the same , pleasant, no complaint, Pain fairly controlled, no fever chill, Denies chest pain palpitation or dizziness Denies cough sputum shortness of breath Denies nausea vomiting abdominal pain diarrhea constipation Denies dysuria urgency and frequency Musculoskeletal: + problem reported (bilateral foot pain ) Physical Exam 2 Vital Signs (Past 24 Hours): Last Vital Signs Temp 36.6 C 03/26/18 15:14 Pulse 85 03/26/18 15:14 Resp 22 03/26/18 15:14 BP 109/57 L 03/26/18 15:14 Pulse Ox 96 03/26/18 15:14 Physical Exam: Gen: Thin, chronically ill looking, malnutrition, no acute distress, looks better Head exam is unremarkable. normocephalic, atraumatic Pupils equal round response to the night, ear was normal nose was normal, poor dentition Neck no jugular venous distension, Lungs are clear to auscultation and percussion. Cardiac exam reveals Rhythm is regular. s1, s2 Abdominal exam reveals normal bowel sounds, no masses, no organomegaly Neurologic exam is A&Ox3, significant reduction in pain sensation except when dependent and with pressure Psychologically ; no anxious or depressed feliberto lower ext in dress, wound Vax in place _ (1) Frostbite of both feet Encounter type: initial encounter Qualified Code(s): T33.821A - Superficial frostbite of right foot, initial encounter; T33.822A - Superficial frostbite of left foot, initial encounter
[2018-03-27] MEDS: AMOXICILLIN/CLAVULANATE 875 MG TAB PO SCH ×2 (09:38→17:49)
[2018-03-27] MEDS: FERROUS SULFATE 325 MG/7.4 ML UDP PO SCH ×2 (09:39→17:49)
[2018-03-27] MEDS: DOCUSATE SODIUM 100 MG CAP PO SCH ×2 (09:40→20:24)
[2018-03-27] MEDS: ENOXAPARIN INJ 40 MG/0.4 ML SYR SQ SCH (09:41)
[2018-03-27] MEDS: LISINOPRIL 5 MG TAB PO SCH (09:41)
--- NOTE | 2018-03-27 11:17 | Hospitalist Progress Note ---
Date of Service March 27, 2018 Assessment & Plan (1) Sepsis: (2) Frostbite of both feet: (3) DVT prophylaxis: 58-year-old female treated on March 16, 2018 with frostbite of bilateral feet. Lives in unheated trailer, Has not followed up with primary care. frostbite initially with sepsis upon admission with tachycardia, WBC 19 at outside hospital recurrence of fever 2/8 is concerning given the patient's on Zosyn, has changed antibiotic to Augmentin for 7 days per recommendation of infectious disease POD 5 - s/p left below knee amputation, right foot transmetatarsal amputation Podiatry and orthopedic input appreciated Continue PT/OT Pain medication cont Lovenox for DVT prophylaxis. pain control with tylenol, MRI imaging suggests tissue to entire left foot and front parts of right foot Possible iron deficiency anemia with iron level is low, start iron supplementation , with Colace to prevent constipation, however likely because of anemia from chronic disease, because total iron binding capacity is low as well, vitamin B12 folic acid were normal Difficult social situation Discharge planning has involved Adult Protective Services and we have had a psychiatric consultation feels that pt is competent to make decisions regarding the care of her body Poor dentition May benefit from referral to [facility] dentistry after discharge Pending [facility] of [facility], medically ready to discharge if bed available Subjective doing the same , no complaint, pleasant, no fever chill, Denies chest pain palpitation or dizziness Denies cough sputum shortness of breath Denies nausea vomiting abdominal pain diarrhea constipation Denies dysuria urgency and frequency Musculoskeletal: + problem reported (bilateral foot pain ) Physical Exam 2 Vital Signs (Past 24 Hours): Last Vital Signs Temp 37.0 C 03/27/18 07:42 Pulse 77 03/27/18 07:42 Resp 18 03/27/18 07:42 BP 130/73 03/27/18 07:42 Pulse Ox 97 03/27/18 07:42 Physical Exam: Gen: Thin, no acute distress, looks better Head exam is unremarkable. normocephalic, atraumatic Pupils equal round response to the night, ear was normal nose was normal, poor dentition Neck no jugular venous distension, Lungs are clear to auscultation and percussion. Cardiac exam reveals Rhythm is regular. s1, s2 Abdominal exam reveals normal bowel sounds, no masses, no organomegaly Neurologic exam is A&Ox3, significant reduction in pain sensation except when dependent and with pressure Psychologically ; no anxious or depressed feliberto lower ext in dress, wound Vax in place Results & Data Laboratory Results Microbiology 03/22/18 14:29 Foot,Right Gram Stain - Final 03/22/18 14:29 Foot,Right Aerobic and Anaerobic Culture - Preliminary Coag negative Staphylococcus _ (1) Frostbite of both feet Encounter type: initial encounter Qualified Code(s): T33.821A - Superficial frostbite of right foot, initial encounter; T33.822A - Superficial frostbite of left foot, initial encounter
[2018-03-28] MEDS: LISINOPRIL 5 MG TAB PO SCH (08:26)
[2018-03-28] MEDS: AMOXICILLIN/CLAVULANATE 875 MG TAB PO SCH ×2 (08:27→17:11)
[2018-03-28] MEDS: FERROUS SULFATE 325 MG/7.4 ML UDP PO SCH ×2 (08:27→17:12)
[2018-03-28] MEDS: DOCUSATE SODIUM 100 MG CAP PO SCH ×3 (08:28→19:54)
[2018-03-28] MEDS: ENOXAPARIN INJ 40 MG/0.4 ML SYR SQ SCH (08:28)
--- NOTE | 2018-03-28 09:51 | Hospitalist Progress Note ---
Date of Service March 28, 2018 Assessment & Plan (1) Sepsis: 58-year-old female treated on March 16, 2018 with frostbite of bilateral feet. Lives in unheated trailer, Has not followed up with primary care. frostbite initially with sepsis upon admission with tachycardia, WBC 19 at outside hospital) recurrence of fever 03/18 is concerning given the patient's on Zosyn did not have mrsa, but coag neg staph, Surgery 03/22- s/p left below knee amputation, right foot transmetatarsal amputation Continue PT/OT Ice and elevate for swelling/pain Pain medication started Lovenox for DVT prophylaxis. pain control with tylenol, dilaudid prn blood cultures show only 1 of 2 showing coag negative staph which likely contaminant Difficult social situation -This is a second time patient has presented medical problems secondary to exposure to the elements -Discharge planning has involved Adult Protective Services and we have had a psychiatric consultation feels that pt is competent to make decisions regarding the care of her body but has not yet determined if pt is competent to make decisions to return to home Poor dentition -May benefit from referral to [facility] dentistry although transport may be an issue. per Request Dr. Bates called to patient's brother Garrison Nye at [phone], updated to him patient's conditions and care plan, (2) Frostbite of both feet: Frostbite of bilateral feet progressing to gangrene b/l requiring surgical amputation (3) DVT prophylaxis: Subjective Patient complaint is that the stump of her left BKA is feels slightly tight. There is a wound dressing in place and there feels to be a internal rigid supportive structure in place. I encouraged the nursing staff to contact orthopedics if she continues to complain of this for evaluation. Disposition continues to be a challenge for her currently looking into rehab both acute and subacute Review of Systems ROS: well nourished well developed. No double vision blurry vision No problems with speech or swallowing No palpitations, chest pain or pressure No Wheezing or breathing issues No abdominal pain nausea vomiting diarrhea changes in appetite or weight No burning urine urine frequency or changes in color Patient has some pain at the distal BKA site he says it feels like pins and needles No skin rashes continues with poor dentition No unusual bruising or bleeding No focused back pain or numbness No changes in memory or confusion Physical Exam 2 Vital Signs (Past 24 Hours): Last Vital Signs Temp 36.7 C 03/28/18 08:08 Pulse 70 03/28/18 08:08 Resp 14 03/28/18 08:08 BP 119/68 03/28/18 08:08 Pulse Ox 97 03/28/18 08:08 The patient appeared well nourished and normally developed. Vital signs as documented. Multiple dental caries are noted Head exam is unremarkable. normocephalic, atraumatic Neck is without jugular venous distension, thyromegaly, or lymphademopathy Lungs are clear to auscultation and percussion. Cardiac exam reveals Rhythm is regular. First and second heart sounds normal. Abdominal exam reveals normal bowel sounds, no masses, no organomegaly Extremities dressings are in place at the right transmetatarsal in the left BKA surgical sites Neurologic exam is A&Ox3, no focal deficits station except the removed surgical areas Psychologically seems anxious and was more accepting of possible need for rehabilitation _ (1) Frostbite of both feet Encounter type: initial encounter Qualified Code(s): T33.821A - Superficial frostbite of right foot, initial encounter; T33.822A - Superficial frostbite of left foot, initial encounter
[2018-03-29] MEDS: FERROUS SULFATE 325 MG/7.4 ML UDP PO SCH (08:09)
[2018-03-29] MEDS: AMOXICILLIN/CLAVULANATE 875 MG TAB PO SCH (08:09)
[2018-03-29] MEDS: ENOXAPARIN INJ 40 MG/0.4 ML SYR SQ SCH (08:12)
[2018-03-29] MEDS: DOCUSATE SODIUM 100 MG CAP PO SCH (08:12)
[2018-03-29] MEDS: LISINOPRIL 5 MG TAB PO SCH (08:13)
--- NOTE | 2018-03-29 14:34 | Orthopedic Progress Note ---
Date of Service March 29, 2018 Assessment & Plan (1) Frostbite of both feet: 1 week s/p left below knee amputation, right foot transmetatarsal amputation both pravena wound vacs removed. Dressings changed and orthoglass splint re- applied to Lt LE allowing for slight knee flexion at -5 degrees Continue PT/OT Ice and elevate for swelling/pain Pain medication as prescribed Recommend Lovenox for DVT prophylaxis. OK to d/c from orthopedic standpoint after Private [employer]igator Surveillance input. Our office recommends patient f/u 2wks post-op. We will arrange these appointments with Dr Pierre and Dr Monet for the same day. We will contact the patient either thru [facility] or SNF with these dates and times. Our office number is [phone]. I, Dr. Monet, saw and examined the patient and discussed the management with my PA. I reviewed my PAs note and agree with the documented findings and the plan of care I developed. Subjective Patient sitting in w/c at bedside. Doing well. Denies pain, fever, chills, sweats, CP or SOB. Family visiting with patient. Physical Exam 2 Vital Signs (Past 24 Hours): Last Vital Signs Temp 37.0 C 03/29/18 08:29 Pulse 86 03/29/18 08:29 Resp 18 03/29/18 08:29 BP 124/68 03/29/18 08:29 Pulse Ox 98 03/29/18 08:29 Physical Exam: Right foot: dressings and pravena removed. Incision with an small area of eschar medial/lateral. Area of skin discoloration to plantar arch , unchanged. Overall looks good. No pus of foul odor. Minimal bleeding after initial removal of Prevena. Post tibial pulse palpable. N/V intact to light touch. Calf soft and supple without TTP. BCR less than 2 sec flap. Lt LE: Dressing and pravena removed. Incision and surrounding tissue looks good. No pus or foul odor. Mild bleeding from incision edge intially after Prevena removed. Good quad tone and able to easily perform SLRT. NV intact to stump. Knee -5 extension to 90 flexion actively with out pain. _ (1) Frostbite of both feet Encounter type: initial encounter Qualified Code(s): T33.821A - Superficial frostbite of right foot, initial encounter; T33.822A - Superficial frostbite of left foot, initial encounter
--- NOTE | 2018-04-05 08:31 | Discharge Summary ---
Date of Service March 29, 2018 Admission HPI Per Admitting Provider The patient was seen by the [facility] liaison nurse and then again by this provider. She is diffuse and tangential and often deflects the conversation when she is asked more directly about her feet and the medical care recommendations, but when pressed and given time she will answer questions but not linearly. SHe states "people are so negative....I don't like to talk about these things." IN summary, the patient denies formal psychiatric history. However she does state "I am not crazy, I am not bipolar" when she was told the psychiatrist would be visiting later. SHe does have a chaotic social history (son placed with her in-laws when he was 9yo for unclear reasons) and states several times "all rule can be bent or broken." Although not diagnostic may be suggestive of choices and reasoning that may border on questionable. She denies feeling depressed or anxious. SHe is concerned about not being home to care for her cats but states a "friend is doing that." She denies safety concerns, denies h/o psychosis or elevated or irritable states. When asked about her illness she is able to state that she has frostbite on her feet and that she is on antibiotics to treat infection She is aware she is recommended for surgery but reasons for not having surgery include trying to maintain mobility so that she can return to independent living. She is aware the risk of not treating is worsneing infection and "it can get into my blood" and is aware that if septic she could . SHe states the infection already has gotten into her blood some, "but I am on antibiotics for that and it is helping." She states last year her MRI showed "more damage than there was and I am worried that the [current] MRI now is wrong, too." She states she is not declining treatment and wants to see "how much the antibiotics can do." WHen asked what would help her feel more confident in the diagnosis and exam for degree of injury she cites seeing her prior surgeon who is not presently available. She states she would listen to recommendations from a second evaluation by a second surgeon. WHen asked what she would do if the second evaluation surgical opinion was that she needed amputation she stated "well since I've already had several days of antibiotics I guess I would have the surgery." It is unclear if there is a second opinion available at [facility] by a orthopedic foot surgeon. SHe declines transfer to [facility] or [facility] but states she is willing to go closer to home to [facility] if needed for the procedure. She sees the risks of surgery now will be that it will bee too aggressive and she will lose more leg and foot than needed and will be less likely to be able to walk. 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 Of note she does seem to get annoyed/bothered by aspects of care she cannot control, e.g. wanting a specialist to lead her care rather than a general farmworker, wanting to "rest on the weekend and handle it on Wednesday" IN regards to the question does she have capacity to return home at this time? She is not imminently asking to leave the hospital. This should be reassessed at a time when she requests to leave or is deemed medically appropriate for discharge. However at this time, she states she wants to return home and seems to beleives that she will be able to walk and be independent. She is not able to speak about the probability that she will not walk and is very circular about this. She does state that she only goes out in > 30Degree weather but then goes on to share the exceptions to this "when it does not feel like 24 degrees" she has walked places as well. this is consistent with her adage that all rules can be bent or broken. She did not see the wound on her foot because she did not feel it. She has limited insight to her ability to ambulate and live independently with her degree of injury now nor insight to the degree of injury that occurred due to her self-care oversight. She has limited insight to monitor her own physical wellbeing. She does not appreciate that her injury can be somewhat painless until it is very serious. SHe states she has an application through [facility] for weatherization of her trailer and a case manger named Scott to help her. SHe does not have a contact information for Scott. It is unclear if her trailer is indeed habitable as she does not give a ready description of the place. She is not able to state the risks of returning home with her current injury, the benefits of returning home to her are maintaining low rent housing and her independence, she sees no possible benefits in not returning home for her health or wellbeing at this time, and sees the risks of not returning home as "losing everything." She is not able to reason reliably through this process and has a unilateral agenda and stated plan that she will be going home refusing to discuss any other scenario. Principal Diagnosis gangrene to both legs with bl amputation, left is BKA right is Transmetatarsal Discharge Exam Constitutional well developed and average body habitus Eyes no conjunctival abnormality and no scleral abnormality Neck normal visual inspection and trachea midline Respiratory normal respiratory effort; no respiratory distress Auscultation: lungs clear to auscultation bilaterally Cardiovascular RRR, no murmur, no edema Gastrointestinal (Abdomen) normal bowel sounds, soft, nontender, no hepatosplenomegaly Discharge Data Allergies Allergy/AdvReac Type Severity Reaction Status Date / Time No Known Allergies Allergy Unverified 02/20/17 03:53 Consultations 03/16/18 00:06 Consult Case Management - Discharge Planning Routine 03/17/18 08:01 Consult Vascular Surgery Routine 03/18/18 15:13 Consult Psychiatry Routine 03/20/18 07:35 Consult Orthopedic Surgery Routine 03/20/18 18:58 Consult Podiatry Routine 03/22/18 17:02 Consult Case Management - Discharge Planning Routine 03/24/18 15:58 Consult Infectious Diseases Stat Procedures Performed Operation Date: 03/22/18 13:00 Actual Procedures p Left Below Knee Amputation(Left) - Demarco Monet MD s Right Transmetatarsal Amputation(Right) - Lalita Nettles DPM Ordered Studies 03/16/18 11:20 MR foot LT wo/w con Routine MR foot RT wo/w con Routine 03/16/18 16:23 US arterial duplex LE Routine Hospital Course (1) Sepsis: 58-year-old female treated on March 16, 2018 with frostbite of bilateral feet. Lives in unheated trailer, Has not followed up with primary care. frostbite initially with sepsis upon admission with tachycardia, WBC 19 at outside hospital) recurrence of fever 2/8 is concerning given the patient's on Zosyn did not have mrsa, but coag neg staph, MRI imaging suggests tissue to entire left foot and front parts of right foot Possible iron deficiency anemia with iron level is low, start iron supplementation , with Colace to prevent constipation, however likely because of anemia from chronic disease, because total iron binding capacity is low as well, vitamin B12 folic acid were normal Surgery 03/22- s/p left below knee amputation, right foot transmetatarsal amputation blood cultures show only 1 of 2 showing coag negative staph which likely contaminant Difficult social situation -This is a second time patient has presented medical problems secondary to exposure to the elements -Discharge planning has involved Adult Protective Services and we have had a psychiatric consultation feels that pt is competent to make decisions regarding the care of her body but has not yet determined if pt is competent to make decisions to return to home Poor dentition -May benefit from referral to [facility] dentistry although transport may be an issue. per Request Dr. Bates called to patient's brother Garrison Nye at [phone], updated to him patient's conditions and care plan, (2) Frostbite of both feet: Frostbite of bilateral feet progressing to gangrene b/l requiring surgical amputation (3) DVT prophylaxis: 58-year-old female treated on March 16, 2018 with frostbite of bilateral feet. Lives in unheated [facility], Has not followed up with primary care. Total Time Total Time Spent Total Time Spent (In Minutes): greater than 30 minutes were required to prepare discharge Discharge Plan Discharge Items Patient Disposition: Transfer Inpatient Rehab Fac Reason For Visit: SEPSIS,FROSTBITE Discharge Diagnosis: piper bite, b/l gangrene, amputation right mid foot and left BKA Discharge Goals: Decrease discomfort, Diagnostic testing and Improve disease control Activity: Resume your previous activity Non-emergency contact: Primary Care Provider Call non-emergency contact if: you have any medication questions Follow-up/Referrals: Demarco Monet MD [Physician] - None (Dr Monet/Dr Pierre office will contact patient to schedule f/u appointment for approximately 2wks after surgery. Our office number is [phone]. ) PCP,NO [Primary Care Provider] - Diet: Regular Addtl Provider Instructions: please follow Prescriptions: New lisinopril [Zestril] 5 mg Tablet 5 mg PO QAM Qty: 30 RF: 0 docusate sodium 100 mg Capsule 100 mg PO BID Qty: 60 RF: 0 amoxicillin-pot clavulanate 875-125 mg Tablet 1 tab PO BIDM Qty: 10 RF: 0 oxycodone 5 mg Tablet 5 - 10 mg PO Q4H PRN (Reason: pain) Qty: 10 RF: 0 enoxaparin 40 mg/0.4 mL Syringe 40 mg subcut Q24H Qty: 4 RF: 0 multivitamin with iron-mineral tablet 1 tab PO DAILY Qty: 20 RF: 0 Discontinued Amlodipine Besylate 5 MG tablet 2.5 mg PO QAM 30 Days Qty: 15 RF: 0 Cephalexin Monohydrate (Cephalexin) 500 MG capsule 500 mg PO TID 7 Days Qty: 21 RF: 0 Stand-Alone Forms: [employer], [facility] Discharge Orders: Discharge Order (Routine); Ordered 03/29/18 Ordered By: Checo Malave Skilled Items Patient informed of condition?: Yes DNR: No Discharge Level of Care: Acute rehab Communicable Disease: No Discharge Prognosis: Stable Admission Data Admit Date/Time: 03/15/18 23:26 Attending Provider: Checo Malave Admit Provider: Baltazar Gorman Primary Care Provider: PCP,NO Other Providers: Lalita Nettles ; Demarco Monet ; Kehinde Higuera ; Maureen Ferrara ; Checo yMers ; Fabi Amanda ; Adams Osuna Service: Surgical Services Other Interventions: Discharge Summary Assessment (RN) Last Done: 03/29/18 17:06 Pending Studies at Discharge: No DC Date/Time DO NOT enter until pt leaves facility: 03/29/18 18:10
== END 2018-03-29 18:10 | DRG 854 ==
LOC: SUATTDRO 23:26 → 1E 23:26 → 3N 03-16 14:39